=== PATIENT | female | born 1980 | race Caucasian/White ===

== ENCOUNTER 2021-08-31 12:43 | Emergency (ER) | payer OTHER, SELFPAY ==
--- NOTE | ~2021-08-31 | MR_ITS ---
EXAMINATION: MR BRAIN WITHOUT CONTRAST MR LUMBAR SPINE WITHOUT CONTRAST CLINICAL INFORMATION: Low back pain and left leg weakness. COMPARISON: None TECHNIQUE: MRI of the brain and lumbar spine was obtained using routine sequences without contrast. FINDINGS: BRAIN: No diffusion abnormalities are identified to suggest an acute or subacute infarct. The ventricles are normal in size. No mass effect or midline shift is seen. No brain parenchymal signal abnormality is noted. No extra-axial fluid collections are seen. The brainstem and cerebellum are normal. The gradient refocused acquisition demonstrates no pathologic magnetic susceptibility artifact to indicate underlying acute or chronic blood products. The craniovertebral junction, marrow signal, and midline structures are normal. The major intracranial flow voids at the level of the [place] of [place] are preserved. The dural venous sinus flow voids are maintained. The mastoid air cells and paranasal sinuses are well aerated. LUMBAR SPINE: Vertebral Bodies And Paraspinal Structures: The marrow signal is homogeneous. There is a retrosubluxation and disc degeneration without a loss of disc height at the L4-L5 level. The remaining discs are well-hydrated. No compression fractures are seen. The paraspinal soft tissues appear normal. There are [id number] degenerative changes of the partially visualized sacroiliac joints. Conus Medullaris And Cauda Equina: No lower cord signal abnormality is seen. The conus tip terminates normally at the L1-L2 level. The cauda equina nerve roots appear normal. Spinal Levels: L1-L2, L2-L3, and L3-L4: Well-hydrated normal appearance of the discs without central canal stenosis or foraminal narrowing. L4-L5: Disc degeneration and mild posterior subluxation with a diffuse disc bulge and broad-based central disc protrusion. Underlying annular fissure also evident. Disc protrusion impresses upon the ventral thecal sac. Moderate hypertrophic facet arthropathy as well. Findings encroach upon the subarticular zones with mass effect upon both L5 nerve roots. Moderate central canal stenosis and xbwk-ih-dyirdjad bilateral foraminal narrowing. L5-S1: Well-hydrated disc with mild facet arthropathy. No central canal stenosis or foraminal narrowing. MR/MR head/brain wo con IMPRESSION: BRAIN: Normal study. LUMBAR SPINE: Disc degeneration and retrosubluxation at the L4-L5 level with a central disc protrusion, moderate facet arthropathy, and moderate central canal stenosis. Findings result in mass effect upon both L5 nerve roots in the subarticular zones.
--- NOTE | ~2021-08-31 | MR_ITS ---
EXAMINATION: MR BRAIN WITHOUT CONTRAST MR LUMBAR SPINE WITHOUT CONTRAST CLINICAL INFORMATION: Low back pain and left leg weakness. COMPARISON: None TECHNIQUE: MRI of the brain and lumbar spine was obtained using routine sequences without contrast. FINDINGS: BRAIN: No diffusion abnormalities are identified to suggest an acute or subacute infarct. The ventricles are normal in size. No mass effect or midline shift is seen. No brain parenchymal signal abnormality is noted. No extra-axial fluid collections are seen. The brainstem and cerebellum are normal. The gradient refocused acquisition demonstrates no pathologic magnetic susceptibility artifact to indicate underlying acute or chronic blood products. The craniovertebral junction, marrow signal, and midline structures are normal. The major intracranial flow voids at the level of the [place] are preserved. The dural venous sinus flow voids are maintained. The mastoid air cells and paranasal sinuses are well aerated. LUMBAR SPINE: Vertebral Bodies And Paraspinal Structures: The marrow signal is homogeneous. There is a retrosubluxation and disc degeneration without a loss of disc height at the L4-L5 level. The remaining discs are well-hydrated. No compression fractures are seen. The paraspinal soft tissues appear normal. There are [id number]-[id number] degenerative changes of the partially visualized sacroiliac joints. Conus Medullaris And Cauda Equina: No lower cord signal abnormality is seen. The conus tip terminates normally at the L1-L2 level. The cauda equina nerve roots appear normal. Spinal Levels: L1-L2, L2-L3, and L3-L4: Well-hydrated normal appearance of the discs without central canal stenosis or foraminal narrowing. L4-L5: Disc degeneration and mild posterior subluxation with a diffuse disc bulge and broad-based central disc protrusion. Underlying annular fissure also evident. Disc protrusion impresses upon the ventral thecal sac. Moderate hypertrophic facet arthropathy as well. Findings encroach upon the subarticular zones with mass effect upon both L5 nerve roots. Moderate central canal stenosis and [id number] bilateral foraminal narrowing. L5-S1: Well-hydrated disc with mild facet arthropathy. No central canal stenosis or foraminal narrowing. MR/MR lumbar spine wo con IMPRESSION: BRAIN: Normal study. LUMBAR SPINE: Disc degeneration and retrosubluxation at the L4-L5 level with a central disc protrusion, moderate facet arthropathy, and moderate central canal stenosis. Findings result in mass effect upon both L5 nerve roots in the subarticular zones.
[2021-08-31 12:48] VITALS: BP 142/92; PULSE 100; RESP 19; TEMP 36.6; O2SAT 99; BMI 25.8
[2021-08-31 13:18] VITALS: BP 134/87; PULSE 106; RESP 19; TEMP 36.8; O2SAT 99
--- NOTE | 2021-08-31 13:28 | ED.BACK ---
HPI - Back Pain/Injury General Chief Complaint: Back Pain/Injury Stated Complaint: Back pain Time Seen by Provider: 08/31/21 13:12 Source: patient and family ( at bedside) Mode of arrival: ambulatory Limitations: no limitations History of Present Illness HPI Narrative: 41-year-old female with a past medical history of right labial tear of hip joint although no other significant past medical history presenting to the ED with complaints of 2 days of atraumatic lower back pain radiating to her left lower extremity where she reports she has to walk hunched over / holding onto the wall or things around her due to she has pain and is making it difficult for the patient to walk. She reports on she had a right lower quadrant abdominal pain and whoose sensation pain and then the pain in the right lower quadrant of her abdomen completely resolved and has not returned. She reports that she is currently on her menstrual period today. She denies any fevers, chills, dizziness, headaches, neck pain /stiffness, trouble swallowing or breathing, dyspnea on exertion, orthopnea, chest pain or shortness of breath, palpitations, paresthesias, any abdominal pain today, hematuria, dysuria, black or bloody stools, urinary or bowel incontinence or retention, saddle anesthesia, recent travel or sick contacts, rashes, recent falls or injuries, any history of IV drug use or any other symptoms complaints or concerns at this time. MD elicited complaint: back pain Onset (ago): day(s) (2) Timing: constant and progressively worsening Severity: severe Pain scale (0-10): 10 Quality: other ( pain ) Location: lumbar spine Radiation: left leg below the knee Exacerbating factors: supine positioning and walking Relieving factors: none Context: unknown Associated symptoms: weakness ( to the left lower extremity) and difficulty walking ( with the left lower extremity) Treatments prior to arrival: NSAIDS Work related injury: No Related Data Previous Rx's Medication Instructions Recorded acetaminophen 500 mg capsule 500 mg PO Q6H PRN 30 Days #90 cap 05/25/20 diclofenac sodium 75 mg 75 mg PO BID PRN 3 Days #60 tab 05/25/20 tablet,delayed release oxycodone 5 mg tablet 5 mg PO BID PRN 30 Days #60 tab 05/25/20 cyclobenzaprine 10 mg tablet 10 mg PO Q8H PRN #14 tab 03/26/22 ibuprofen 800 mg tablet 800 mg PO Q8H PRN #14 tab 08/31/21 lidocaine 5 % topical patch 1 patch TOPICAL DAILY #15 ea 08/31/21 (Lidoderm) oxycodone 5 mg tablet 5 mg PO Q6H PRN #14 tab 08/31/21 prednisone 20 mg tablet 40 mg PO DAILY 5 Days #10 tab 08/31/21 Allergies Allergy/AdvReac Type Severity Reaction Status Date / Time No Known Allergies Allergy Verified 06/05/20 11:44 Review of Systems Review of Systems: Constitutional : No trauma, No Weight loss, No Fever, No Chills, ENT/Mouth : No Hearing loss, No Ear Pain, No Nasal Congestion, No Sinus Pain, No Hoarseness, No sore throat, No Rhinorrhea, No Swallowing Difficulty Cardiovascular : No Chest Pain, No SOB Respiratory : No Cough, No Dyspnea Gastrointestinal : No Nausea, No Vomiting, No Diarrhea, No abdominal Pain, No Hematochezia, No Melena Genitourinary : No Dysuria, No Urinary Frequency, No Hematuria, No Urinary or Bowel Incontinence/retention Musculoskeletal : + Back pain, No neck pain, No joint stiffness, No joint swelling Skin : No Skin Lesions, No rash or signs of infection Neuro : + pain radiating to left lower extremity weakness/ pain, No Numbness, No Paresthesias, No headache, no loss of bowel or bladder incontinence, no saddle anesthesia, Focal weakness, No radiation Denies history of IV drug usage. Yes all other systems are reviewed and are negative [facility] Past Medical History Attestation statement: The following information was validated with the patient. Medical History Labral tear of hip joint Pain management Surgical History History of arthroscopy History of section Family History Family History Father Cancer of prostate Mother No problems noted. Brother No problems noted. Son No problems noted. Son No problems noted. Son No problems noted. Social History Social History Alcohol intake: current Alcohol intake frequency: holidays/special occasions only Patient Tobacco Use Status: Never used Tobacco Use of substances other than those prescribed or required for medical reasons: No Advance Directives: No Advance Directives Information Provided: No Patient : No Physical Exam Vital Signs: Vital Signs: Last Vital Signs Temp 98.2 F 08/31/21 13:18 Pulse 106 H 08/31/21 13:18 Resp 19 08/31/21 13:18 BP 134/87 08/31/21 13:18 Pulse Ox 99 08/31/21 13:18 BMI result Body Mass Index 25.8 vital signs have been reviewed as normal and appeared to be correct. Blood pressure normal. Heart rate normal. Respiration rate normal. Temperature normal. Oxygen saturation normal. Appearance: Alert. Oriented X3. No acute distress. Head: Normal external exam. Normocephalic. Atraumatic. Eyes: PERRLA. EOMI. Conjunctiva and sclera normal. Eyelids normal. ENT: Pharynx normal. Uvula midline. Moist mucous membranes. No trismus noted. No drooling noted. No muffled voice noted. Neck: Normal inspection. Neck supple. FROM. No adenopathy. Thyroid Normal. No meningeal signs. No neck mass noted. CVS: Normal heart rate and rhythm. Heart sound normal. No murmurs noted. Pulses normal throughout. Respiratory: No respiratory distress. Painless inspiration. Breath sounds normal. No wheezes/rales/rhonchi noted. Chest nontender. No accessory muscle usage noted or decreased air movement noted. Abdomen: Soft and nontender. Bowel sounds normal in all 4 quadrants. No distention noted. No organomegaly noted. No visible injury noted. Back: No CVA tenderness. Full range of motion noted. No obvious deformities, or edema. Mild para-spinal muscular tenderness from lumbar region to coccyx. Full ROM in back and lower extremities. 5/5 strength hip extension/flexion, abduction, adduction. Mild Lumbar pain with hip flexion against resistance. Straight leg raise test negative on right; Straight leg raise test negative on left; Reflexes normal ankle and knee bilaterally; EHL motor strength normal bilaterally. No rashes/lesion/induration/fluctuance or signs infection noted. Skin: Skin warm and dry. Normal skin color. Normal skin turgor. No rashes/lesions/lacerations noted. Extremities: No lower extremity edema. No calf tenderness is noted. Extremities exhibit normal range of motion. Extremities nontender. Neuro: Oriented X 3. No sensory deficit. Reflexes normal. Patient is hunched over when she is walking in severe pain although she eventually can stand up straight although is crying when she does this. Mild left lower extremity weakness 4/5 with motor compared to the right side which is 5/5 for motor. Vascular: + radial pulses bilaterally. + Distal pedal pulses bilaterally. No cyanosis noted to upper lower extremities. normal capillary refill noted to upper and lower extremity nails. Course Course Course Narrative: 13:30pm - Pt c likely muscular pain, but could be herniated disc. Not c/w AAA/epidural abscess/dissection.No high risk Hx (Incont, fever, immunosupp, recent surgery/LP, coag, signif trauma, wt loss, puls mass, hx/o Ca, TB, or IVDU). Not c/w Pyelo/UTI/kidney stone/spinal fx. Not cauda equina syndrome. Patient does have some weakness to the left lower extremity 4/5 for motor compared to the right which is 5/5 for motor. No sensory defect. She is hunched over when she is walking in pain although she is able to stand up straight although crying when she does this reporting pain. Therefore at this time will obtain an MRI of brain to evaluate for possible multiple sclerosis or any other acute processes and an MRI of lumbar spine without contrast to evaluate for any other acute processes. Provide symptomatic treatment with 30 mg of IM Toradol and 10 mg of Valium then re-evaluate. Reevaluation(s) Reevaluation #1: - Labs reviewed patient with RBCs at 4.12. Otherwise all other labs are within normal limits. Patient negative for . MRI of brain within normal limits. MRI of lumbar spine negative for cauda equina although revealed chronic changes such as herniated this and degenerative disc disease. Therefore I printed out the results and given to the patient explained to her that this is most likely acute on chronic back pain she reports that she has never had back pain in the past like this. Therefore explained her that she should follow-up with her PCP and a legal specialist and to return if any new or worsening symptoms. Patient understands agrees with this plan. Time: 17:04 [facility] - Back Pain/Injury Medical Records Attestation: I reviewed the patient's medical records. Lab Data Attestation: I reviewed the patient's lab results. Result diagrams: 08/31/21 13:55 08/31/21 13:55 Labs: Lab Results 08/31/21 08/31/21 08/31/21 Range/Units 13:55 13:55 13:55 WBC 8.7 (4.8-10.8) X10*3/uL RBC 4.12 L (4.20-5.50) X10*6/uL Hgb 12.1 (12.0-16.0) g/dl Hct 37.9 (37.0-47.0) % MCV 92.0 (80.0-98.0) fL MCH 29.4 (27.0-33.0) pg MCHC 31.9 (31.0-35.0) g/dl RDW 13.0 (11.0-16.0) % Plt Count 241 (160-400) X10*3/uL MPV 11.2 (9.4-12.3) fL Immature Gran % (Auto) 0.3 (0.0-0.4) % Neut % (Auto) 73.5 H (45-73) % Lymph % (Auto) 16.9 L (20-40) % [place] % (Auto) 6.3 (2-11) % Eos % (Auto) 2.3 (0-4) % Baso % (Auto) 0.7 (0-2) % Lymph # (Auto) 1.5 (1.2-4.9) X10*3/uL [place]ier # (Auto) 0.6 (0.1-1.2) X10*3/uL Eos # (Auto) 0.2 (0.0-0.4) X10*3/uL Baso # (Auto) 0.1 (0.0-0.2) X10*3/uL Abs Immat Gran (auto) 0.03 (0.00-0.03) X10*3/uL Absolute Neuts (auto) 6.4 (2.0-8.3) x10*3/uL Absolute Nucleated RBC 0.000 (0.0-0.012) X10*3/uL Nucleated RBC % (auto) 0.0 (0.0-0.2) /100WBC PT 12.0 (9.9-13.0) SEC INR 1.1 (0.9-1.1) Sodium 141 (135-145) mmol/L Potassium 4.6 (3.3-5.1) mmol/L Chloride 106 (96-108) mmol/L Carbon Dioxide 26 (22-29) mmol/L Anion Gap 14 (12-20) BUN 14 (9-16) mg/dL Creatinine 0.79 (0.5-1.4) mg/dL Estim Creat Clear Calc 100.0 Estimated GFR > 60 Random Glucose 107 (60-115) mg/dL Calcium 9.4 (8.4-10.2) mg/dL Magnesium 2.0 (1.6-2.6) mg/dL Total Bilirubin 0.5 (0.0-1.0) mg/dL AST 14 (5-31) U/L ALT 11 (0-31) U/L Alkaline Phosphatase 47 (39-117) U/L Total Protein 6.9 (6.5-8.0) g/dL Albumin 4.2 (3.5-5.0) g/dL Beta HCG, Quant < 2 mIU/mL Imaging Data MRI of brain/lumbar spine without contrast: Attestation: I personally reviewed and interpreted this imaging study as follows: Radiologist's impression: FINDINGS: BRAIN: No diffusion abnormalities are identified to suggest an acute or subacute infarct. The ventricles are normal in size. No mass effect or midline shift is seen. No brain parenchymal signal abnormality is noted. No extra-axial fluid collections are seen. The brainstem and cerebellum are normal. The gradient refocused acquisition demonstrates no pathologic magnetic susceptibility artifact to indicate underlying acute or chronic blood products. The craniovertebral junction, marrow signal, and midline structures are normal. The major intracranial flow voids at the level of the [place] of [place] are preserved. The dural venous sinus flow voids are maintained. The mastoid air cells and paranasal sinuses are well aerated. LUMBAR SPINE: Vertebral Bodies And Paraspinal Structures: The marrow signal is homogeneous. There is a retrosubluxation and disc degeneration without a loss of disc height at the L4-L5 level. The remaining discs are well-hydrated. No compression fractures are seen. The paraspinal soft tissues appear normal. There are [id number] degenerative changes of the partially visualized sacroiliac joints. Conus Medullaris And Cauda Equina: No lower cord signal abnormality is seen. The conus tip terminates normally at the L1-L2 level. The cauda equina nerve roots appear normal. Spinal Levels: L1-L2, L2-L3, and L3-L4: Well-hydrated normal appearance of the discs without central canal stenosis or foraminal narrowing. L4-L5: Disc degeneration and mild posterior subluxation with a diffuse disc bulge and broad-based central disc protrusion. Underlying annular fissure also evident. Disc protrusion impresses upon the ventral thecal sac. Moderate hypertrophic facet arthropathy as well. Findings encroach upon the subarticular zones with mass effect upon both L5 nerve roots. Moderate central canal stenosis and [id number] bilateral foraminal narrowing. L5-S1: Well-hydrated disc with mild facet arthropathy. No central canal stenosis or foraminal narrowing. MR/MR head/brain wo con IMPRESSION: ? BRAIN: Normal study. ? LUMBAR SPINE: Disc degeneration and retrosubluxation at the L4-L5 level with a central disc protrusion, moderate facet arthropathy, and moderate central canal stenosis. Findings result in mass effect upon both L5 nerve roots in the subarticular zones. Critical Care Time Critical Care Time Critical Care Time: Yes Total Critical Care Time: 60 Attestation: I personally attest to this time spent taking care of the patient Discharge Plan Discharge Clinical Impression: Degenerative disc disease, lumbar, Protrusion of lumbar intervertebral disc, Arthropathy of facet joint, Central stenosis of spinal canal Patient Disposition: Home, Self-Care Instructions: Osteoarthritis (DC), Degenerative Disc Disease (ED) Additional Instructions: [facility]?at [phone] [place] [phone] call to make a follow-up appointment this is not a referral Prescriptions: New cyclobenzaprine 10 mg tablet 10 mg PO Q8H PRN (Reason: Muscle spasm) Qty: 14 0RF ibuprofen 800 mg tablet 800 mg PO Q8H PRN (Reason: pain) Qty: 14 0RF prednisone 20 mg tablet 40 mg PO DAILY 5 Days Qty: 10 0RF lidocaine [Lidoderm] 5 % adhesive patch,medicated 1 patch topical DAILY Qty: 15 0RF Rx Instructions: leave on most painful area for up to 12 hrs. May be substituted oxycodone 5 mg tablet 5 mg PO Q6H PRN (Reason: pain) Qty: 14 0RF No Action oxycodone 5 mg tablet 5 mg PO BID PRN (Reason: pain) 30 Days Qty: 60 0RF diclofenac sodium 75 mg tablet,delayed release (DR/EC) 75 mg PO BID PRN (Reason: pain) 3 Days Qty: 60 0RF acetaminophen 500 mg capsule 500 mg PO Q6H PRN (Reason: fever) 30 Days Qty: 90 0RF Referrals: Corinna Oquendo MD [Primary Care Provider] - 2 days Print Language: Pashto
[2021-08-31] MEDS: Ketorolac Tromethamine 30 MG/ML VIAL IM (13:57)
[2021-08-31 13:58] LABS: MANUAL DIFF FLAG NO
[2021-08-31] MEDS: diazePAM 5 MG TABLET 10 MG PO (13:58)
[2021-08-31 14:03] LABS: Basophils Absolute Auto 0.1 X10*3/uL (0.0-0.2); Basophils Percent Auto 0.7 % (0-2); Eosinophils Absolute Auto 0.2 X10*3/uL (0.0-0.4); Eosinophils Percent Auto 2.3 % (0-4); Hematocrit 37.9 % (37.0-47.0); Hemoglobin 12.1 g/dl (12.0-16.0); Imm Gran Abs Auto 0.03 X10*3/uL (0.00-0.03); Imm Gran Pct Auto 0.3 % (0.0-0.4); Lymphocytes Absolute Auto 1.5 X10*3/uL (1.2-4.9); Lymphocytes Percent Auto 16.9 % (20-40); Mean Corpuscular HGB Conc 31.9 g/dl (31.0-35.0); Mean Corpuscular Hemoglobin 29.4 pg (27.0-33.0); Mean Platelet Volume 11.2 fL (9.4-12.3); Monocytes Absolute Auto 0.6 X10*3/uL (0.1-1.2); Monocytes Percent Auto 6.3 % (2-11); Neutrophils Absolute Auto 6.4 x10*3/uL (2.0-8.3); Neutrophils Percent Auto 73.5 % (45-73); Platelet Count 241 X10*3/uL (160-400); Red Blood Count 4.12 X10*6/uL (4.20-5.50); White Blood Count 8.7 X10*3/uL (4.8-10.8)
[2021-08-31 14:13] LABS: INTERNATIONAL NORM RATIO 1.1 (0.9-1.1)
[2021-08-31 14:19] LABS: Alanine Aminotransferase 11 U/L (0-31); Albumin Level 4.2 g/dL (3.5-5.0); Alkaline Phosphatase 47 U/L (39-117); Anion Gap 14 (12-20); Aspartate Amino Transferase 14 U/L (5-31); Bilirubin Total 0.5 mg/dL (0.0-1.0); Blood Urea Nitrogen 14 mg/dL (9-16); Calcium 9.4 mg/dL (8.4-10.2); Carbon Dioxide 26 mmol/L (22-29); Chloride 106 mmol/L (96-108); Estimated Glomerular Filt Rate > 60; Glucose Random 107 mg/dL (60-115); Potassium 4.6 mmol/L (3.3-5.1); Sodium 141 mmol/L (135-145); Total Protein 6.9 g/dL (6.5-8.0)
[2021-08-31 16:07] LABS: HCG Quantitative < 2 mIU/mL
[2021-08-31 17:40] VITALS: BP 105/63; PULSE 76; RESP 16; O2SAT 99
[2021-08-31] MEDS: oxyCODONE HCl Immed Release 5 MG TABLET PO (17:41)
== END 2021-08-31 17:46 | disposition home or self-care (01) ==
PROVIDERS: Physician Assistant Medical; Emergency Provider Emergency Medicine; PCP Internal Medicine
DX: M51.36 Other intervertebral disc degeneration, lumbar region (principal); M51.26 Other intervertebral disc displacement, lumbar region; M48.061 Spinal stenosis, lumbar region without neurogenic claudication; M47.896 Other spondylosis, lumbar region; M54.42 Lumbago with sciatica, left side; R53.1 Weakness
CPT/HCPCS: 36415; 70551; 72148; 80053; 83735; 84702; 85025; 85610; 96372; 96374; 99284; 99291; J1885

== ENCOUNTER 2021-12-19 12:00 | Outpatient (REF) | payer OTHER, SELFPAY | END 2021-12-19 12:01 | disposition home or self-care (01) | LOC: HO.HMGCLDS 12:00 | PROVIDERS: PCP Internal Medicine; Visit Provider Internal Medicine | DX: Z01.84 Encounter for antibody response examination (principal); Z28.39 Other underimmunization status | CPT/HCPCS: 36415; 86735; 86762; 86765; 86787 ==

== ENCOUNTER 2022-01-29 11:01 | Outpatient (REF) | payer OTHER, SELFPAY ==
[2022-01-29 14:37] LABS: Alanine Aminotransferase 9 U/L (0-31); Albumin Level 4.4 g/dL (3.5-5.0); Alkaline Phosphatase 51 U/L (39-117); Anion Gap 13 (12-20); Aspartate Amino Transferase 14 U/L (5-31); Bilirubin Total 0.4 mg/dL (0.0-1.0); Blood Urea Nitrogen 10 mg/dL (9-16); Calcium 9.4 mg/dL (8.4-10.2); Carbon Dioxide 28 mmol/L (22-29); Chloride 104 mmol/L (96-108); Cholesterol 179 mg/dL; Estimated Glomerular Filt Rate > 60; Glucose Fasting 90 mg/dL (60-99); HDL Cholesterol 69 mg/dL; LDL Cholesterol Calculated 102 mg/dl; Potassium 3.9 mmol/L (3.3-5.1); Sodium 141 mmol/L (135-145); Total Protein 7.2 g/dL (6.5-8.0); Triglycerides 42 mg/dL
[2022-01-29 14:47] LABS: TSH reflex Free T4 2.29 uIU/mL (0.32-4.0)
== END 2022-01-29 11:02 | disposition home or self-care (01) ==
LOC: HO.HMGCLDS 11:01
PROVIDERS: PCP Internal Medicine; Visit Provider Internal Medicine
DX: Z00.01 Encounter for general adult medical examination with abnormal findings (principal); S73.199A Other sprain of unspecified hip, initial encounter; M54.16 Radiculopathy, lumbar region; X58.XXXA Exposure to other specified factors, initial encounter; Y93.9 Activity, unspecified; Y92.9 Unspecified place or not applicable; Y99.9 Unspecified external cause status
CPT/HCPCS: 36415; 80053; 80061; 84443

== ENCOUNTER 2022-12-17 14:04 | Outpatient (AMB) | payer OTHER, SELFPAY ==
--- NOTE | 2022-12-17 14:05 | A.OFFPC_ITS ---
Vital Signs 12/17/22 14:06 Height 5 ft 7 in Weight 167 lb 4 oz BMI 26.2 BP 122/76 Blood Pressure Location Rt brachial Position Sitting Pulse 90 Pulse Source Pulse Oximeter Pulse Oximetry (%) 99 Intake Visit Reasons: 3m follow up hip joint Allergies No Known Allergies Allergy (Verified 12/17/22 14:06) Medication List - Last Reconciled 12/17/22 by Corinna Oquendo MD omeprazole 20 mg PO DAILY tizanidine 2 mg PO ONCE 90 days tramadol 50 mg PO Q8H PRN 30 days Tobacco use date assessed: 12/17/22 Dental Screening Dental Screen Date: 12/17/22 Did you have a dental visit in the last 12 months?: Yes Was dental information given to patient?: No HPI 3m follow up hip joint HPI Details Patient had right hip replacement she is very happy there is no more pain However her back pain is started to act up, patient was seeing [facility] for that, I would recommend for her to book another appointment for follow-up She is also having pain in her right knee was swollen before but today it is feeling better I have ordered x-ray of her knee patient is to continue observing if it gets better she does not need to do the x-ray otherwise she will have the x-ray and give me a call so I can book appointment with Orthopedic I have sent tramadol 50 mg up to 3 times a day as she continued to have the back pain initially medication was prescribed for her hip And she is also taking tizanidine at night which is helping her back. Follow-up 3 months [facility] Medical History Labral tear of hip joint Pain management Surgical History History of arthroscopy History of section History of right hip replacement Family History Father Cancer of prostate Mother No problems noted. Brother No problems noted. Son No problems noted. Son No problems noted. Son No problems noted. 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 Tobias Moyer, Millie Hernandez, Quinn Gonzalez and colleagues, with an educational radha from [employer]. Review of Systems Const Denies chills and Denies fever(s) ENT Denies epistaxis and Denies nasal discharge Card Denies chest pain Resp Denies chest congestion, Denies cough and Denies hemoptysis GI Denies diarrhea and Denies nausea Skin/Breast Denies rash Neuro Reports no additional complaints Psych Reports no additional complaints Endo Reports no additional complaints Physical exam (Primary Care) Vital Signs: Last Vital Signs Pulse 90 12/17/22 14:06 BP 122/76 12/17/22 14:06 Pulse Ox 99 12/17/22 14:06 BMI result Body Mass Index 26.2 Tobacco/Smoking Status: Tobacco use Status Tobacco use date assessed 12/17/22 12/17/22 14:10 Patient Tobacco Use Status Never used Tobacco 12/17/22 14:10 e-Cigarette/Vaping Use Never Used 12/17/22 14:10 Thrive Assessment: Date of Thrive Assessment Date Thrive assessed 09/03/21 12/17/22 14:10 Const General: cooperative, comfortable and no acute distress Orientation/consciousness: patient oriented x3 HENMT Head: Yes normocephalic Eyes General: appearance normal, both eyes and all related structures Neck Neck: Yes supple Resp Effort & Inspection: normal respiratory effort, no cough and no stridor Cardio Rhythm: regular rhythm Heart sounds: S1 normal heart sound present and S2 normal heart sound present Skin General skin exam: turgor normal Neuro General: patient oriented x3, tone normal and moves all extremities Extrem Right lower extremity: no edema Left lower extremity: no edema Assessment and Plan Assessment & Plan (1) HNP (herniated nucleus pulposus), lumbar: Code(s): M51.26 - Other intervertebral disc displacement, lumbar region (2) Left lumbar radiculitis: Code(s): M54.16 - Radiculopathy, lumbar region (3) Right knee pain: Code(s): M25.561 - Pain in right knee (4) History of right hip replacement: Comment: 09/30/2022 Code(s): Z96.641 - Presence of right artificial hip joint Plan Patient had right hip replacement she is very happy there is no more pain However her back pain is started to act up, patient was seeing [facility] for that, I would recommend for her to book another appointment for follow-up She is also having pain in her right knee was swollen before but today it is feeling better I have ordered x-ray of her knee patient is to continue observing if it gets better she does not need to do the x-ray otherwise she will have the x-ray and give me a call so I can book appointment with Orthopedic I have sent tramadol 50 mg up to 3 times a day as she continued to have the back pain initially medication was prescribed for her hip And she is also taking tizanidine at night which is helping her back. Follow-up 3 months Medications: Refilled tizanidine 2 mg PO ONCE 90 caps 0RF muscle spasticity 90 days tramadol 50 mg PO Q8H PRN 90 tabs 2RF pain 30 days omeprazole 20 mg PO DAILY 90 caps 0RF Coding Level of Care Code Est Pt Level 3 (57854) Diagnoses HNP (herniated nucleus pulposus), lumbar M51.26 Left lumbar radiculitis M54.16 Right knee pain M25.561 History of right hip replacement Z96.641
[2022-12-17 14:06] VITALS: BP 122/76; PULSE 90; O2SAT 99; BMI 26.2
== END 2022-12-17 15:14 | disposition home or self-care (01) ==
PROVIDERS: PCP Internal Medicine; Visit Provider Internal Medicine
DX: M51.26 Other intervertebral disc displacement, lumbar region (principal); M54.16 Radiculopathy, lumbar region; M25.561 Pain in right knee; Z96.641 Presence of right artificial hip joint
CPT/HCPCS: 99213

== ENCOUNTER 2023-04-14 13:42 | Outpatient (AMB) | payer OTHER, SELFPAY ==
[2023-04-14 13:44] VITALS: BP 126/70; PULSE 100; O2SAT 100; BMI 25.3
--- NOTE | 2023-04-14 13:44 | MHC.PC.OV ---
Vital Signs 04/14/23 13:44 Height 5 ft 7 in Weight 161 lb 8 oz BMI 25.3 BP 126/70 Blood Pressure Location Rt brachial Position Sitting Pulse 100 Pulse Source Pulse Oximeter Pulse Oximetry (%) 100 Oxygen Delivery Method Room Air Intake Visit Reasons: 3m follow up Allergies No Known Allergies Allergy (Verified 04/14/23 13:44) Medication List - Last Reconciled 04/14/23 by Corinna Oquendo MD omeprazole 20 mg PO DAILY tizanidine 2 mg PO ONCE 90 days tramadol 50 mg PO Q6H 30 days Tobacco use date assessed: 04/14/23 Dental Screening Dental Screen Date: 04/14/23 Did you have a dental visit in the last 12 months?: No Did you have a dental problem in the last 6 months where you did not have access to dental care?: No Was dental information given to patient?: No HPI 3m follow up HPI Details Patient had right hip replacement surgery done she was doing well for a while until Her right hip start dislocating for the past few weeks She has appointment coming up with Orthopedic for evaluation. Her low back continued to be extremely painful causing difficulty for the patient to go on with her day She had an MRI of lumbar spine done in August of 2021 which showed Disc degeneration and retrosubluxation at the L4-L5 level with a central disc protrusion, moderate facet arthropathy, and moderate central canal stenosis. Findings result in mass effect upon both L5 nerve roots in the subarticular zones. She is already on tramadol 3 times a day I have increased it to 4 times a day She may take Aleve as needed in between She is taking muscle relaxer at night which does She will return in 3 months for physical exam Also need labs done [facility] Medical History Pain management Labral tear of hip joint Surgical History History of right hip replacement History of arthroscopy History of section Family History Father Cancer of prostate Mother No problems noted. Brother No problems noted. Son No problems noted. Son No problems noted. Son No problems noted. 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 1. Little interest or pleasure in doing things: not at all 2. Feeling down, depressed, or hopeless: several days 3. Trouble falling or staying asleep, or sleeping too much: several days 4. Feeling tired or having little energy: several days 5. Poor appetite or overeating: not at all 6. Feeling bad about yourself - or that you are a failure or have let yourself or your family down: not at all 7. Trouble concentrating on things, such as reading the newspaper or watching television: not at all 8. Moving or speaking so slowly that other people could have noticed. Or the opposite - being so fidgety or restless that you have been moving around a lot more than usual: not at all 9. Thoughts that you would be better off or of hurting yourself in some way: not at all Total score: 3 Depression Screening Interpretation: Negative Depression Screening Done: Yes 98204 - PHQ-9 Billing: Yes Source: Developed by Drs. Tobias Moyer, Millie Hernandez, Quinn Gonzalez and colleagues, with an educational radha from [employer]. Thrive Questionnaire Date Thrive assessed: 09/03/21 AUDIT C Alcohol Use Questionnaire (AUDIT-C) 1. How often do you have a drink containing alcohol?: Never 3. How often do you have six or more drinks on one occasion?: Never Total Score: 0 Score Reviewed/Action Taken: Yes ARMANI-7 AMB Questionnaire ARMANI-7 Date ARMANI - 7 assessed: 04/14/23 Feeling nervous, anxious, or on edge: 0 = Not at all Not being able to stop or control worryin = Not at all Worrying too much about different things: 1 = Several days Trouble relaxin = Several days Being so restless that it is hard to sit still: 0 = Not at all Becoming easily annoyed or irritable: 0 = Not at all Feeling afraid as if something awful might happen: 0 = Not at all Total ARMANI-7 score (0-4 normal; 5-9 mild; 10-14 moderate; 15-21 severe): 2 Source: Developed by Drs. Tobisa Moyer, Millie Hernandez, Quinn Gonzalez and colleagues, with an educational radha from [employer]. ARMANI-7 Assessment Billing ARMANI-7 Assessment Tool: ARMANI-7 Assessment 62126 Review of Systems Const Denies chills and Denies fever(s) ENT Denies epistaxis and Denies nasal discharge Card Denies chest pain Resp Denies chest congestion, Denies cough and Denies hemoptysis GI Denies diarrhea and Denies nausea Skin/Breast Denies rash Neuro Reports no additional complaints Psych Reports no additional complaints Endo Reports no additional complaints Physical exam (Primary Care) Vital Signs: Last Vital Signs Pulse 100 04/14/23 13:44 BP 126/70 04/14/23 13:44 Pulse Ox 100 04/14/23 13:44 Oxygen Delivery Method Room Air 04/14/23 13:44 BMI result Body Mass Index 25.3 Tobacco/Smoking Status: Tobacco use Status Tobacco use date assessed 04/14/23 04/14/23 13:49 Patient Tobacco Use Status Never used Tobacco 04/14/23 13:46 e-Cigarette/Vaping Use Never Used 04/14/23 13:46 PHQ-9: PHQ-9 Score PHQ-9: Total score 3 04/14/23 14:14 Depression Screening Interpretation: Negative Thrive Assessment: Date of Thrive Assessment Date Thrive assessed 09/03/21 04/14/23 13:46 Const General: cooperative, comfortable and no acute distress Orientation/consciousness: patient oriented x3 HENME Head: Yes normocephalic Eyes General: appearance normal, both eyes and all related structures Neck Neck: Yes supple Resp Effort & Inspection: normal respiratory effort, no cough and no stridor Cardio Rhythm: regular rhythm Heart sounds: S1 normal heart sound present and S2 normal heart sound present Skin General skin exam: turgor normal Neuro General: patient oriented x3, tone normal and moves all extremities Extrem Right lower extremity: no edema Left lower extremity: no edema Assessment and Plan Assessment & Plan (1) Left lumbar radiculitis: Code(s): M54.16 - Radiculopathy, lumbar region (2) Pain management: Code(s): R52 - Pain, unspecified (3) Hip pain, right: Code(s): M25.551 - Pain in right hip (4) Hip dislocation, right: Code(s): S73.004A - Unspecified dislocation of right hip, initial encounter Qualifiers: Encounter type: initial encounter Qualified Code(s): S73.004A - Unspecified dislocation of right hip, initial encounter Plan Patient had right hip replacement surgery done she was doing well for a while until Her right hip start dislocating for the past few weeks She has appointment coming up with Orthopedic for evaluation. Her low back continued to be extremely painful causing difficulty for the patient to go on with her day She had an MRI of lumbar spine done in August of 2021 which showed Disc degeneration and retrosubluxation at the L4-L5 level with a central disc protrusion, moderate facet arthropathy, and moderate central canal stenosis. Findings result in mass effect upon both L5 nerve roots in the subarticular zones. She is already on tramadol 3 times a day I have increased it to 4 times a day She may take Aleve as needed in between She is taking muscle relaxer at night which does She will return in 3 months for physical exam Also need labs done Orders: Orders Lipid Panel Today M25.551 - Pain in right hip, M54.16 - Radiculopathy, lumbar region, R52 - Pain, unspecified, S73.004A - Unspecified dislocation of right hip, initial encounter Vitamin D 25-OH (D2 and D3) Today M25.551 - Pain in right hip, M54.16 - Radiculopathy, lumbar region, R52 - Pain, unspecified, S73.004A - Unspecified dislocation of right hip, initial encounter Complete Blood Count Auto Diff Today M25.551 - Pain in right hip, M54.16 - Radiculopathy, lumbar region, R52 - Pain, unspecified, S73.004A - Unspecified dislocation of right hip, initial encounter Comprehensive [place]. Panel Fast Today M25.551 - Pain in right hip, M54.16 - Radiculopathy, lumbar region, R52 - Pain, unspecified, S73.004A - Unspecified dislocation of right hip, initial encounter TSH reflex Free T4 Today M25.551 - Pain in right hip, M54.16 - Radiculopathy, lumbar region, R52 - Pain, unspecified, S73.004A - Unspecified dislocation of right hip, initial encounter Medications: Changed From tramadol 50 mg PO Q8H 30 days PRN 90 tabs 2RF pain To tramadol 50 mg PO Q6H 120 tabs 2RF pain 30 days Refilled tizanidine 2 mg PO ONCE 90 caps 0RF muscle spasticity 90 days Coding Level of Care Code Est Pt Level 4 (72008) Diagnoses Left lumbar radiculitis M54.16 Pain management R52 Hip pain, right M25.551 Dislocation of right hip, initial encounter S73.004A Encounter type: initial encounter Additional Codes ARMANI-7 Assessment Billing - ARMANI-7 Assessment Tool: ARMANI-7 Assessment 57393 ([id number])
== END 2023-04-14 16:03 | disposition home or self-care (01) ==
PROVIDERS: PCP Internal Medicine; Visit Provider Internal Medicine
DX: M54.16 Radiculopathy, lumbar region (principal); M25.551 Pain in right hip; S73.004A Unspecified dislocation of right hip, initial encounter
CPT/HCPCS: 99214

== ENCOUNTER 2023-09-04 07:29 | Outpatient (AMB) | payer OTHER, SELFPAY ==
--- NOTE | 2023-09-04 07:48 | MHC.PC.OV ---
Intake Visit Reasons: 3 Month follow up/[phone] Allergies No Known Allergies Allergy (Verified 04/14/23 13:44) Medication List - Last Reconciled 09/04/23 by Corinna Oquendo MD omeprazole 20 mg PO DAILY tizanidine 2 mg PO ONCE 90 days tramadol 50 mg PO Q6H 30 days Tobacco use date assessed: 04/14/23 Dental Screening Dental Screen Date: 04/14/23 HPI 3 Month follow up/[phone] HPI Details This is a telephone video conference to have medication refill and to update information Patient suffers from chronic back pain, she says that in May while on came she bent down to olive picker something and worsened her back pain Patient sees [facility] for back however she owes them some money and has not been able to book appointment Patient says that she feels as if she has another disc herniation. She will work on her appointment Meanwhile I have sent tramadol 50 mg prescription patient is taking sometimes 3 times a day sometimes 2 times Along with muscle relaxer Patient had right hip replacement surgery done she was doing well for a while until Her right hip start dislocating after the surgery, however she is now doing well and there is no more dislocation She has appointment coming up with Orthopedic for evaluation. MRI of lumbar spine done in August of 2021 which showed Disc degeneration and retrosubluxation at the L4-L5 level with a central disc protrusion, moderate facet arthropathy, and moderate central canal stenosis. Findings result in mass effect upon both L5 nerve roots in the subarticular zones. We have booked physical exam for November as patient is going to college and can not come before that. [facility] Medical History Pain management Labral tear of hip joint Surgical History History of right hip replacement History of arthroscopy History of section Family History Father Cancer of prostate Mother No problems noted. Brother No problems noted. Son No problems noted. Son No problems noted. Son No problems noted. 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 Tobias Moyer, Millie Hernandez, Quinn Gonzalez and colleagues, with an educational radha from [employer]. Review of Systems Const Denies chills and Denies fever(s) ENT Denies epistaxis and Denies nasal discharge Card Denies chest pain Resp Denies chest congestion, Denies cough and Denies hemoptysis GI Denies diarrhea and Denies nausea Skin/Breast Denies rash Neuro Reports no additional complaints Psych Reports no additional complaints Endo Reports no additional complaints Physical exam (Primary Care) Tobacco/Smoking Status: Tobacco use Status Tobacco use date assessed 04/14/23 09/04/23 07:49 Patient Tobacco Use Status Never used Tobacco 09/04/23 07:49 e-Cigarette/Vaping Use Never Used 09/04/23 07:49 Thrive Assessment: Date of Thrive Assessment Date Thrive assessed 09/03/21 09/04/23 07:49 Telehealth Telehealth Location of provider rendering services: practice address Location of patient: address on file Patient Identification confirmed using: Name, : Yes Telehealth method: video Patient verbally consented to treatment: Yes Patient verbally consented to billing insurance company: Yes Patient informed of any privacy concerns related to visit: Yes Assessment and Plan Assessment & Plan (1) HNP (herniated nucleus pulposus), lumbar: Code(s): M51.26 - Other intervertebral disc displacement, lumbar region (2) Pain management: Code(s): R52 - Pain, unspecified (3) History of right hip replacement: Comment: 09/30/2022 Code(s): Z96.641 - Presence of right artificial hip joint Plan This is a telephone video conference to have medication refill and to update information Patient suffers from chronic back pain, she says that in May while on came she bent down to olive picker something and worsened her back pain Patient sees [facility] for back however she owes them some money and has not been able to book appointment Patient says that she feels as if she has another disc herniation. She will work on her appointment Meanwhile I have sent tramadol 50 mg prescription patient is taking sometimes 3 times a day sometimes 2 times Along with muscle relaxer Patient had right hip replacement surgery done she was doing well for a while until Her right hip start dislocating after the surgery, however she is now doing well and there is no more dislocation She has appointment coming up with Orthopedic for evaluation. MRI of lumbar spine done in August of 2021 which showed Disc degeneration and retrosubluxation at the L4-L5 level with a central disc protrusion, moderate facet arthropathy, and moderate central canal stenosis. Findings result in mass effect upon both L5 nerve roots in the subarticular zones. We have booked physical exam for November as patient is going to college and can not come before that. Medications: Refilled tramadol 50 mg PO Q6H 120 tabs 2RF pain 30 days tizanidine 2 mg PO ONCE 90 caps 0RF muscle spasticity 90 days Coding Level of Care Code Tele Est Pt Level 3 (02380) Diagnoses HNP (herniated nucleus pulposus), lumbar M51.26 Pain management R52 History of right hip replacement Z96.641 Time Spent (min) 17
== END 2023-09-04 08:21 | disposition home or self-care (01) ==
LOC: HO.HMGC 07:30
PROVIDERS: PCP Internal Medicine; Visit Provider Internal Medicine
DX: M51.26 Other intervertebral disc displacement, lumbar region (principal); R52 Pain, unspecified; Z96.641 Presence of right artificial hip joint
CPT/HCPCS: 99213

== ENCOUNTER 2023-09-09 09:38 | Outpatient (REF) | payer OTHER, SELFPAY ==
[2023-09-09 13:29] LABS: MANUAL DIFF FLAG NO
[2023-09-09 13:40] LABS: Basophils Absolute Auto 0.1 X10*3/uL (0.0-0.2); Basophils Percent Auto 1.3 % (0-2); Eosinophils Absolute Auto 0.2 X10*3/uL (0.0-0.4); Eosinophils Percent Auto 3.9 % (0-4); Hematocrit 36.7 % (37.0-47.0); Hemoglobin 11.5 g/dl (12.0-16.0); Imm Gran Abs Auto 0.03 X10*3/uL (0.00-0.03); Imm Gran Pct Auto 0.5 % (0.0-0.4); Lymphocytes Absolute Auto 1.8 X10*3/uL (1.2-4.9); Lymphocytes Percent Auto 30.2 % (20-40); Mean Corpuscular HGB Conc 31.3 g/dl (31.0-35.0); Mean Corpuscular Hemoglobin 26.7 pg (27.0-33.0); Mean Corpuscular Volume 85.3 fL (80.0-98.0); Mean Platelet Volume 11.9 fL (9.4-12.3); Monocytes Absolute Auto 0.4 X10*3/uL (0.1-1.2); Monocytes Percent Auto 6.1 % (2-11); Neutrophils Absolute Auto 3.4 x10*3/uL (2.0-8.3); Platelet Count 310 X10*3/uL (160-400); Red Cell Distribution Width 14.9 % (11.0-16.0); White Blood Count 5.9 X10*3/uL (4.8-10.8)
[2023-09-09 14:08] LABS: Alanine Aminotransferase 11 U/L (0-31); Albumin Level 4.1 g/dL (3.5-5.0); Alkaline Phosphatase 61 U/L (39-117); Anion Gap 10 (12-20); Aspartate Amino Transferase 16 U/L (5-31); Bilirubin Total 0.4 mg/dL (0.0-1.0); Blood Urea Nitrogen 13 mg/dL (9-16); Calcium 9.6 mg/dL (8.4-10.2); Carbon Dioxide 29 mmol/L (22-29); Chloride 106 mmol/L (96-108); Cholesterol 162 mg/dL (<200); Estimated Glomerular Filt Rate > 60; Glucose Fasting 81 mg/dL (60-99); HDL Cholesterol 68 mg/dL (>40); LDL Cholesterol Calculated 85 mg/dL (<100); Potassium 4.5 mmol/L (3.3-5.1); Sodium 140 mmol/L (135-145); Total Protein 7.4 g/dL (6.5-8.0); Triglycerides 46 mg/dL (<150)
[2023-09-09 14:27] LABS: TSH reflex Free T4 1.63 uIU/mL (0.32-4.0)
[2023-09-12 14:59] LABS: Vitamin D 25-OH, D2 <4 ng/mL; Vitamin D 25-OH, D3 26 ng/mL; Vitamin D 25-OH, Total 26 ng/mL (30-100)
== END 2023-09-09 09:39 | disposition home or self-care (01) ==
LOC: HO.HMGCLDS 09:38
PROVIDERS: PCP Internal Medicine; Visit Provider Internal Medicine
DX: Z13.6 Encounter for screening for cardiovascular disorders (principal); M54.16 Radiculopathy, lumbar region; M25.551 Pain in right hip; S73.004A Unspecified dislocation of right hip, initial encounter
CPT/HCPCS: 36415; 80053; 80061; 82306; 84443; 85025

== ENCOUNTER 2023-11-28 09:04 | Outpatient (AMB) | payer OTHER, SELFPAY ==
[2023-11-28 09:05] VITALS: BP 146/76; PULSE 84; TEMP 36.7; O2SAT 98; BMI 25.7
--- NOTE | 2023-11-28 09:05 | MHC.OFFWIV ---
Intake Vital Signs 11/28/23 09:05 Height 5 ft 7 in Weight 164 lb BMI 25.7 BP 146/76 H Blood Pressure Location Lt brachial Position Sitting Pulse 84 Pulse Source Pulse Oximeter Temp 98.1 F Temp Source Oral Pulse Oximetry (%) 98 Oxygen Delivery Method Room Air Intake Visit Reasons: EP RT arm pain Intake Note: Pt is here today c/o upper arm pain x8 wks no injury noted Patient Tobacco Use Status: Never used Tobacco Allergies No Known Allergies Allergy (Verified 11/28/23 09:06) HPI HPI Comments History of Present Illness Details 43-year-old female that presents for right arm pain. Patient has had persistent right arm pain for approximately 7-8 weeks with slowly getting worse. She denies any known trauma tick bites fevers chills. The pain is located primarily on the upper outer portion of the right arm. She has a history of back pain for which she takes tramadol that has not helped her pain. [facility] Medical History Pain management Labral tear of hip joint Surgical History History of right hip replacement History of arthroscopy History of section Family History Father Cancer of prostate Mother No problems noted. Brother No problems noted. Son No problems noted. Son No problems noted. Son No problems noted. 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 Cognitive needs: No Hearing needs: No Vision needs: Yes Physical Exam Vital Signs: Last Vital Signs Temp 98.1 F 11/28/23 09:05 Pulse 84 11/28/23 09:05 BP 146/76 H 11/28/23 09:05 Pulse Ox 98 11/28/23 09:05 Oxygen Delivery Method Room Air 11/28/23 09:05 BMI result Body Mass Index 25.7 Const General: cooperative, healthy appearing, no acute distress and alert Orientation/consciousness: patient oriented x3 Limitations: no limitations HEENT Head: Yes normal to inspection Ears: hearing grossly normal bilaterally General nose exam: Normal external nose present Resp Effort & Inspection: normal respiratory effort and able to speak in complete sentences Cardio Rate: regular rate Skin General skin exam: no rashes or lesions noted Neuro General: patient oriented x3 Extrem Other: TTP over the lateral aspect of the right upper arm. No tenderness over the joint. Strength only mildly diminished in the right side at 4/5 versus 5/. Pain with flexion and lateral raise General: Yes normal to inspection Assessment & Plan Assessment & Plan (1) Arm pain: Code(s): M79.603 - Pain in arm, unspecified Qualifiers: Laterality: right Qualified Code(s): M79.601 - Pain in right arm Plan: Right arm pain unclear etiology that appear to be in the joint space. In the absence of trauma no suspicion for acute fracture or bony abnormality. Suspect muscular in nature will refer to physical therapy in ortho. Continue with conservative management including topical NSAIDs and range of motion as tolerated. Considered x-ray but in the absence of any trauma and persistent nature of pain feel that low yield at this time Orders: Orders PT Evaluation and Treatment Today M79.601 - Pain in right arm Referrals Orthopedics Referral M79.601 - Pain in right arm Coding Level of Care Code Est Pt Level 3 (13966) Diagnoses Pain of right upper extremity M79.601 Laterality: right
== END 2023-11-28 09:25 | disposition home or self-care (01) ==
PROVIDERS: PCP Internal Medicine; Visit Provider Physician Assistant
DX: M79.601 Pain in right arm (principal)
CPT/HCPCS: 99213

== ENCOUNTER 2023-12-03 08:22 | Outpatient (AMB) | payer OTHER, SELFPAY ==
--- NOTE | 2023-12-03 08:48 | A.OFFPC_ITS ---
Intake Visit Reasons: Arm Pain~ [phone] Allergies No Known Allergies Allergy (Verified 12/03/23 08:49) Medication List - Last Reconciled 12/03/23 by Corinna Oquendo MD oxycodone-acetaminophen 5-325 mg (Percocet) 1 tab PO Q8H PRN 10 days tizanidine 2 mg PO ONCE 90 days tramadol 50 mg PO Q6H 30 days Tobacco use date assessed: 12/03/23 Dental Screening Dental Screen Date: 12/03/23 Did you have a dental visit in the last 12 months?: Yes Did you have a dental problem in the last 6 months where you did not have access to dental care?: No Was dental information given to patient?: Patient has dentist HPI Arm Pain~ [phone] HPI Details Patient is a 43-year-old female who has developed pain her right shoulder and it has been 8 weeks already Patient says that she is having difficulty sleeping at night or having difficulty lifting anything because of the weakness she is feeling around her shoulder. She was evaluated in walk-in clinic few days ago and referral was placed to orthopedic She has appointment as off today, number for orthopedic office provided to patient to call in book her own appointment. Patient is taking tramadol which was given to her for her hip pain, but tramadol is not helping with the pain. I have sent Percocet 30 tablets patient may take that 1 at night. I am also ordering MRI for the patient due to feeling weakness in her shoulder and pain going on for 8 weeks and is getting worse. Follow-up with orthopedic [facility] Medical History Pain management Labral tear of hip joint Surgical History History of right hip replacement History of arthroscopy History of section Family History Father Cancer of prostate Mother No problems noted. Brother No problems noted. Son No problems noted. Son No problems noted. Son No problems noted. 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 How often do you have a drink containing alcohol?: Never 3. How often do you have six or more drinks on one occasion?: Never Total Score: 0 Score Reviewed/Action Taken: Yes ARMANI-7 AMB Questionnaire ARMANI-7 Date ARMANI - 7 assessed: 04/14/23 Source: Developed by Drs. Tobias Moyer, Millie Hernandez, Quinn Gonzalez and colleagues, with an educational radha from [employer] Review of Systems Const Denies chills and Denies fever(s) ENT Denies epistaxis and Denies nasal discharge Card Denies chest pain Resp Denies chest congestion, Denies cough and Denies hemoptysis GI Denies diarrhea and Denies nausea Skin/Breast Denies rash Neuro Reports no additional complaints Psych Reports no additional complaints Endo Reports no additional complaints Physical exam (Primary Care) Tobacco/Smoking Status: Tobacco use Status Tobacco use date assessed 12/03/23 12/03/23 08:49 Patient Tobacco Use Status Never used Tobacco 12/03/23 08:49 e-Cigarette/Vaping Use Never Used 12/03/23 08:49 Thrive Assessment: Date of Thrive Assessment Date Thrive assessed 09/03/21 12/03/23 08:49 Telehealth Telehealth Telehealth Platform: [facility] Location of provider rendering services: practice address Location of patient: address on file Patient Identification confirmed using: Name, : Yes Telehealth method: video Patient verbally consented to treatment: Yes Patient verbally consented to billing insurance company: Yes Patient informed of any privacy concerns related to visit: Yes Assessment and Plan Assessment & Plan (1) Shoulder pain, acute: Code(s): M25.519 - Pain in unspecified shoulder Qualifiers: Laterality: right Qualified Code(s): M25.511 - Pain in right shoulder (2) Weakness of right shoulder: Code(s): R29.898 - Other symptoms and signs involving the musculoskeletal system (3) Pain management: Code(s): R52 - Pain, unspecified Plan Patient is a 43-year-old female who has developed pain her right shoulder and it has been 8 weeks already Patient says that she is having difficulty sleeping at night or having difficulty lifting anything because of the weakness she is feeling around her shoulder. She was evaluated in walk-in clinic few days ago and referral was placed to orthopedic She has appointment as off today, number for orthopedic office provided to patient to call in book her own appointment. Patient is taking tramadol which was given to her for her hip pain, but tramadol is not helping with the pain. I have sent Percocet 30 tablets patient may take that 1 at night. I am also ordering MRI for the patient due to feeling weakness in her shoulder and pain going on for 8 weeks and is getting worse. Follow-up with orthopedic Total time spent 30 minute including [id number] with the patient, reviewing the note, going over medications, completing visit note, coordination of care Orders: Orders MR shoulder RT wo/w con Today M25.519 - Pain in unspecified shoulder, R29.898 - Other symptoms and signs involving the musculoskeletal system Medications: New oxycodone-acetaminophen 5-325 mg (Percocet) Partial Fill upon patient request. 1 tab PO Q8H 10 days PRN 30 tabs 0RF pain Coding Level of Care Code Tele Est Pt Level 4 (79147) Diagnoses Acute pain of right shoulder M25.511 Laterality: right Weakness of right shoulder R29.898 Pain management R52
== END 2023-12-03 11:28 | disposition home or self-care (01) ==
LOC: HO.HMGC 08:22
PROVIDERS: PCP Internal Medicine; Visit Provider Internal Medicine
DX: M25.511 Pain in right shoulder (principal); R29.898 Other symptoms and signs involving the musculoskeletal system; R52 Pain, unspecified
CPT/HCPCS: 99214

== ENCOUNTER 2023-12-14 12:16 | Outpatient (REF) | payer OTHER, SELFPAY ==
--- NOTE | ~2023-12-14 | XR_ITS ---
EXAMINATION: XR SHOULDER, RIGHT CLINICAL INFORMATION: Pain shoulder. COMPARISON: None available. TECHNIQUE: Three views of the right shoulder. FINDINGS: Moderate degenerative changes in the acromioclavicular joint with joint space narrowing and hypertrophic change. Glenohumeral alignment preserved. Amorphous calcifications in the soft tissues along the superior aspect of the greater tuberosity suggesting calcific tendinitis. Focal sclerosis overlying the medial aspect of the normal head, possibly representing a bone island. XR/XR shoulder RT min 2V IMPRESSION: Degenerative changes in the right shoulder as detailed above.
== END 2023-12-14 12:17 | disposition home or self-care (01) ==
LOC: HO.HOSX 12:16
PROVIDERS: Visit Provider Orthopaedic Surgery
DX: M75.31 Calcific tendinitis of right shoulder (principal)
CPT/HCPCS: 20610; 73030; J0665; J1100

== ENCOUNTER 2023-12-14 13:27 | Outpatient (AMB) | payer OTHER, SELFPAY ==
--- NOTE | 2023-12-14 13:33 | MHC.OFFVIS ---
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 She was seen in [facility] [place] [place] [facility] In [facility] on 11/28/23 for this complaint where she was ordered PT and referred to Orthopedics. Patient reports it has been about 9-10 weeks of ongoing pain. She is having dull pains but certain movements cause sharp pains, soreness with palpation. She thought she slept on it wrong but states it is progressively getting worse. She is unable to turn her steering wheel, open up jars, hold objects such as a coffee mug without pain. She express occasional numbness and tingling is located in her bicep and radiates all the way into her ring finger and pinky finger of the right hand. At night she is not able to get comfortable and sleep due to her discomfort. 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 Her PCP prescribed her oxycodone with acetaminophen but this provides little relief, she is on day 4-5 of only taking it at night. She has not started PT yet, she is willing to try it if Dr Gomez finds it necessary. Her main concern is work. 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 She was seen in [facility] [place] [place] [facility] In [facility] on 11/28/23 for this complaint where she was ordered PT and referred to Orthopedics. Patient reports it has been about 9-10 weeks of ongoing pain. She is having dull pains but certain movements cause sharp pains, soreness with palpation. She thought she slept on it wrong but states it is progressively getting worse. She is unable to turn her steering wheel, open up jars, hold objects such as a coffee mug without pain. She express occasional numbness and tingling is located in her bicep and radiates all the way into her ring finger and pinky finger of the right hand. At night she is not able to get comfortable and sleep due to her discomfort. 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 Her PCP prescribed her oxycodone with acetaminophen but this provides little relief, she is on day 4-5 of only taking it at night. She has not started PT yet, she is willing to try it if Dr Gomez finds it necessary. Her main concern is work. [facility] Medical History Pain management Labral tear of hip joint Surgical History History of right hip replacement History of arthroscopy History of section Family History Father Cancer of prostate Mother No problems noted. Brother No problems noted. Son No problems noted. Son No problems noted. Son No problems noted. 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 Site was prepped using aseptic technique. Patient tolerated the procedure well. Primary Site: right shoulder Approach Used: posterolateral Coding 47407 - Large joint Procedure code (CPT) selection complete Results Reviewed Results Reviewed: I personally reviewed relevant radiographs. Lg calcium deposit right shoulder adjacent to greater tuberosity Assessment & Plan Assessment & Plan (1) Calcific tendonitis of right shoulder: Code(s): M75.31 - Calcific tendinitis of right shoulder Category: Medical Plan: Injected shoulder PT No overhead work and no lifting f/u 6 weeks Orders: Orders XR shoulder RT min 2V Today M25.519 - Pain in unspecified shoulder PT Evaluation and Treatment Today M75.31 - Calcific tendinitis of right shoulder Coding Level of Care Code New Pt Level 3 (29332) Diagnoses Calcific tendonitis of right shoulder M75.31 CPT Codes Coding - Large joint: 52247 - Large joint ([id number])
[2023-12-14 13:36] VITALS: BMI 25.7
== END 2023-12-14 14:33 | disposition home or self-care (01) ==
PROVIDERS: PCP Internal Medicine; Visit Provider Orthopaedic Surgery
DX: M75.31 Calcific tendinitis of right shoulder (principal)
CPT/HCPCS: 20610; 99203

== ENCOUNTER 2024-01-01 11:44 | Outpatient (AMB) | payer OTHER, SELFPAY ==
[2024-01-01 11:50] VITALS: BP 126/78; PULSE 74; O2SAT 98; BMI 25.5
--- NOTE | 2024-01-01 11:50 | MHC.PC.OV ---
Vital Signs 01/01/24 11:50 Height 5 ft 7 in Weight 163 lb BMI 25.5 BP 126/78 Blood Pressure Location Rt brachial Position Sitting Pulse 74 Pulse Source Pulse Oximeter Pulse Oximetry (%) 98 Oxygen Delivery Method Room Air Intake Visit Reasons: PE Allergies No Known Allergies Allergy (Verified 01/01/24 11:52) Medication List - Last Reconciled 01/01/24 by Corinna Oquendo MD tizanidine 2 mg PO ONCE 90 days tramadol 50 mg PO Q6H 30 days Tobacco use date assessed: 01/01/24 Dental Screening Dental Screen Date: 01/01/24 Did you have a dental visit in the last 12 months?: Yes Did you have a dental problem in the last 6 months where you did not have access to dental care?: No Was dental information given to patient?: Patient has dentist HPI PE HPI Details Patient is a 43-year-old female came in today for physical exam Patient is going to [facility] orthopedic for right shoulder pain She was not able to have MRI because of change of insurance However she had cortisone injection which did help She has follow-up appointment with Dr. Gomez Her back is acting up, I encouraged her to book appointment with her back specialist Her hip is not painful at this time Mammogram was September of this year at [facility] OBGYN was June of this Dr. Hunt Going ov her previous labs done in September of this year I see that she is slightly anemic with hemoglobin of 11.5 Kidney function liver functions were intact I am repeating CBC and iron level today. Follow-up 1 year physical exam [facility] Medical History Pain management Labral tear of hip joint Surgical History History of right hip replacement History of arthroscopy History of section Family History Father Cancer of prostate Mother No problems noted. Brother No problems noted. Son No problems noted. Son No problems noted. Son No problems noted. Social History Housing: House Alcohol intake: current Alcohol intake frequency: holidays/special occasions only Patient Tobacco Use Status: Never used Tobacco e-Cigarette/Vaping Use: Never Used service: No Current occupational status: employed and student Current occupation: [employer] / right hand dominant Cognitive needs: No Hearing needs: No Vision needs: Yes Questionnaire PHQ-9 Over the last 2 weeks, how often have you been bothered by any of the following problems? 1. Little interest or pleasure in doing things: not at all 2. Feeling down, depressed, or hopeless: several days 3. Trouble falling or staying asleep, or sleeping too much: several days 4. Feeling tired or having little energy: several days 5. Poor appetite or overeating: not at all 6. Feeling bad about yourself - or that you are a failure or have let yourself or your family down: not at all 7. Trouble concentrating on things, such as reading the newspaper or watching television: not at all 8. Moving or speaking so slowly that other people could have noticed. Or the opposite - being so fidgety or restless that you have been moving around a lot more than usual: not at all 9. Thoughts that you would be better off or of hurting yourself in some way: not at all Total score: 3 Depression Screening Interpretation: Negative Depression Screening Done: Yes 67326 - PHQ-9 Billing: Yes Source: Developed by Drs. Tobias Moyer, Millie Hernandez, Quinn Gonzalez and colleagues, with an educational radha from [employer]. Thrive Questionnaire Date Thrive assessed: 01/01/24 I am a: Patient What is your living situation today?: I have a steady place to live Within the past 12 months, did the food you bought not last and you didn't have the money to get more?: Never true Within the past 12 months, did you worry whether your food would run out before you got money to buy more?: Never true Do you have trouble paying for medicines?: No Do you have trouble getting transportation to medical appointments?: No Do you have trouble paying your heating and electricity bill?: No Do you have trouble taking care of your child, family member or friend?: No Do you have trouble with day-to-day activities such as bathing, preparing meals, shopping, managing finances, etc.?: No Are you currently unemployed and looking for a job?: No Are you interested in more education?: No Please select the resources that you would like help with: None Currently or been in a relationship where the following occur: No concerns reported THRIVE Score: 0 AUDIT C Alcohol Use Questionnaire (AUDIT-C) 1. How often do you have a drink containing alcohol?: Never 3. How often do you have six or more drinks on one occasion?: Never Total Score: 0 Score Reviewed/Action Taken: Yes ARMANI-7 AMB Questionnaire ARMANI-7 Date ARMANI - 7 assessed: 01/01/24 Feeling nervous, anxious, or on edge: 0 = Not at all Not being able to stop or control worryin = Not at all Worrying too much about different things: 0 = Not at all Trouble relaxin = Not at all Being so restless that it is hard to sit still: 0 = Not at all Becoming easily annoyed or irritable: 0 = Not at all Feeling afraid as if something awful might happen: 0 = Not at all Total ARMANI-7 score (0-4 normal; 5-9 mild; 10-14 moderate; 15-21 severe): 0 Source: Developed by Drs. Tobias Moyer, Millie Hernandez, Quinn Gonzalez and colleagues, with an educational radha from [employer]. ARMANI-7 Assessment Billing ARMANI-7 Assessment Tool: ARMANI-7 Assessment 21577 Review of Systems Const Denies chills, Denies fever(s) and Denies headache(s) Eyes Denies blurry vision ENT Denies headache(s), Denies nasal discharge, Denies nasal obstruction, Denies odynophagia and Denies sinus pain Card Denies chest pain at rest and Denies chest pain with activity Resp Denies cough and Denies hemoptysis GI Denies diarrhea, Denies odynophagia, Denies vomiting and Denies hematemesis Reports as per HPI Musc Denies abnormal gait Skin/Breast Reports as per HPI Neuro Denies Neuro-related abnormal movements, Denies Abnormal speech present, Denies abnormal gait, Denies headache(s) and Denies Sensory deficit (Neuro) Psych Denies mood swings and Denies paranoia Endo Reports as per HPI Crow/Lymph Reports as per HPI Aller/Immun Reports as per HPI Physical exam (Primary Care) Vital Signs: Last Vital Signs Pulse 74 01/01/24 11:50 BP 126/78 01/01/24 11:50 Pulse Ox 98 01/01/24 11:50 Oxygen Delivery Method Room Air 01/01/24 11:50 BMI result Body Mass Index 25.5 Tobacco/Smoking Status: Tobacco use Status Tobacco use date assessed 01/01/24 01/01/24 11:54 Patient Tobacco Use Status Never used Tobacco 01/01/24 11:54 e-Cigarette/Vaping Use Never Used 01/01/24 11:54 PHQ-9: PHQ-9 Score PHQ-9: Total score 3 01/01/24 12:05 Depression Screening Interpretation: Negative Thrive Assessment: Date of Thrive Assessment Date Thrive assessed 01/01/24 01/01/24 11:54 Currently or been in a relationship where the following occur: No concerns reported Const General: cooperative, comfortable and no acute distress Orientation/consciousness: patient oriented x3 HENMT Head: Yes normocephalic and Yes atraumatic Eyes General: appearance normal, both eyes and all related structures Pupils: Equal, round and reactive pupils present EOM: EOMs intact bilaterally Neck Neck: Yes supple and No lymphadenopathy Thyroid: Thyroid normal Lymphatic: no lymphadenopathy noted Resp Effort & Inspection: normal respiratory effort and able to speak in complete sentences Auscultation: clear to auscultation bilaterally Cardio Heart sounds: S1 normal heart sound present and S2 normal heart sound present GI Palpation (GI): Soft to palpation and nontender Auscultation: normal bowel sounds General: Yes no CVA tenderness Back/Spine/Pelvis Back: no CVA tenderness Skin General skin exam: elasticity normal and turgor normal Neuro General: patient oriented x3 and gait normal Cranial nerves: Yes Equal, round and reactive pupils present Speech: No Abnormal speech present Sensory Exam: No Sensory deficit (Neuro) Coordination: tandem gait normal and Romberg test negative Extrem General: Yes normal exam except as noted and No edema Shoulder/upper arm images: 1. Limited range of motion right shoulder Assessment and Plan Assessment & Plan (1) Anemia of chronic disease: Code(s): D63.8 - Anemia in other chronic diseases classified elsewhere (2) Encounter for general adult medical examination with abnormal findings: Code(s): Z00.01 - Encounter for general adult medical examination with abnormal findings (3) Calcific tendonitis of right shoulder: Code(s): M75.31 - Calcific tendinitis of right shoulder (4) Weakness of right shoulder: Code(s): R29.898 - Other symptoms and signs involving the musculoskeletal system Plan Patient is a 43-year-old female came in today for physical exam Patient is going to [facility] orthopedic for right shoulder pain She was not able to have MRI because of change of insurance However she had cortisone injection which did help She has follow-up appointment with Dr. Gomez Her back is acting up, I encouraged her to book appointment with her back specialist Her hip is not painful at this time Mammogram was September of this year at [facility] OBGYN was June of this year Dr. Hunt Going ov her previous labs done in September of this year I see that she is slightly anemic with hemoglobin of 11.5 Kidney function liver functions were intact I am repeating CBC and iron level today. Follow-up 1 year physical exam Orders: Orders Ferritin Today D63.8 - Anemia in other chronic diseases classified elsewhere Complete Blood Count Auto Diff Today D63.8 - Anemia in other chronic diseases classified elsewhere Coding Level of Care Code Est Pt Level 3 (41300) Est Pt Prev Care 40-64y(93647) Diagnoses Anemia of chronic disease D63.8 Encounter for general adult medical examination with abnormal findings Z00.01 Calcific tendonitis of right shoulder M75.31 Weakness of right shoulder R29.898 Additional Codes ARMANI-7 Assessment Billing - ARMANI-7 Assessment Tool: ARMANI-7 Assessment 66249 ([id number])
== END 2024-01-01 12:05 | disposition home or self-care (01) ==
PROVIDERS: PCP Internal Medicine; Visit Provider Internal Medicine
DX: Z00.01 Encounter for general adult medical examination with abnormal findings (principal); M75.31 Calcific tendinitis of right shoulder; D63.8 Anemia in other chronic diseases classified elsewhere; R29.898 Other symptoms and signs involving the musculoskeletal system
CPT/HCPCS: 99213; 99396

== ENCOUNTER 2024-01-01 12:05 | Outpatient (REF) | payer OTHER, SELFPAY ==
[2024-01-01 13:07] LABS: MANUAL DIFF FLAG NO
[2024-01-01 13:11] LABS: Basophils Absolute Auto 0.1 X10*3/uL (0.0-0.2); Basophils Percent Auto 1.3 % (0-2); Eosinophils Absolute Auto 0.2 X10*3/uL (0.0-0.4); Eosinophils Percent Auto 2.8 % (0-4); Hemoglobin 11.5 g/dl (12.0-16.0); Imm Gran Abs Auto 0.02 X10*3/uL (0.00-0.03); Imm Gran Pct Auto 0.4 % (0.0-0.4); Lymphocytes Absolute Auto 1.6 X10*3/uL (1.2-4.9); Lymphocytes Percent Auto 29.7 % (20-40); Mean Corpuscular HGB Conc 31.9 g/dl (31.0-35.0); Mean Corpuscular Hemoglobin 27.6 pg (27.0-33.0); Mean Corpuscular Volume 86.3 fL (80.0-98.0); Mean Platelet Volume 11.5 fL (9.4-12.3); Monocytes Absolute Auto 0.3 X10*3/uL (0.1-1.2); Monocytes Percent Auto 6.1 % (2-11); Neutrophils Absolute Auto 3.2 x10*3/uL (2.0-8.3); Neutrophils Percent Auto 59.7 % (45-73); Platelet Count 281 X10*3/uL (160-400); Red Blood Count 4.17 X10*6/uL (4.20-5.50); Red Cell Distribution Width 14.7 % (11.0-16.0); White Blood Count 5.4 X10*3/uL (4.8-10.8)
[2024-01-01 14:06] LABS: Ferritin 22 ng/mL (10-250)
== END 2024-01-01 12:06 | disposition home or self-care (01) ==
LOC: HO.HMGCLDS 12:05
PROVIDERS: PCP Internal Medicine; Visit Provider Internal Medicine
DX: D63.8 Anemia in other chronic diseases classified elsewhere (principal)
CPT/HCPCS: 36415; 82728; 85025

== ENCOUNTER 2024-01-29 12:44 | Outpatient (AMB) | payer OTHER, SELFPAY ==
--- NOTE | 2024-01-29 12:47 | A.OFFVIS_ITS ---
Intake Visit Reasons: OV-Pain right shoulder-RTC Intake Note: Hetal is 43 year old right hand dominant female who presents today for a follow up of her left shoulder calcific tendonitis, she was given an injection on 12/14/23 and instructed to work on light duty with no lifting or over head lifting. Patient reports that the injection has helped her pain significantly, she feels some soreness with lifting above shoulder height. She has occasional numbness through the forearm and into the palm of the left hand. Allergies No Known Allergies Allergy (Verified 01/01/24 11:52) HPI HPI OV-Pain right shoulder-RTC: Details: Hetal is 43 year old right hand dominant female who presents today for a follow up of her left shoulder calcific tendonitis, she was given an injection on and instructed to work on light duty with no lifting or over head lifting. Patient reports that the injection has helped her pain significantly, she feels some soreness with lifting above shoulder height. She has occasional numbness through the forearm and into the palm of the left hand. [facility] Medical History Pain management Labral tear of hip joint Surgical History History of right hip replacement History of arthroscopy History of section Family History Father Cancer of prostate Mother No problems noted. Brother No problems noted. Son No problems noted. Son No problems noted. Son No problems noted. 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 Mildly positive Tinel's at cubital and carpal tunnel Assessment & Plan Assessment & Plan (1) Calcific tendonitis of right shoulder: Code(s): M75.31 - Calcific tendinitis of right shoulder Category: Medical Plan: Shoulder is much improved after injection. She does have some calcific tendinitis which can refer. I do think she would benefit from a little physical therapy. She will let me know if her hand numbness tingling gets worse or if her shoulder pain gets worse. Coding Level of Care Code Est Pt Level 3 (84260) Diagnoses Calcific tendonitis of right shoulder M75.31
== END 2024-01-29 13:30 | disposition home or self-care (01) ==
PROVIDERS: PCP Internal Medicine; Visit Provider Orthopaedic Surgery
DX: M75.31 Calcific tendinitis of right shoulder (principal)
CPT/HCPCS: 99213

== ENCOUNTER → 2024-01-29 12:44 | Outpatient (BNVA) | payer OTHER, SELFPAY | PROVIDERS: PCP Internal Medicine; Visit Provider Orthopaedic Surgery ==

== ENCOUNTER 2024-04-29 12:33 | Outpatient (AMB) | payer OTHER, SELFPAY ==
--- NOTE | 2024-04-29 12:36 | A.OFFPC_ITS ---
Vital Signs 04/29/24 12:37 Height 5 ft 7 in Weight 166 lb 8 oz BMI 26.1 BP 118/78 Blood Pressure Location Lt brachial Position Sitting Pulse 85 Pulse Source Pulse Oximeter Pulse Oximetry (%) 98 Oxygen Delivery Method Room Air Intake Visit Reasons: Leg Pain Allergies No Known Allergies Allergy (Verified 04/29/24 12:37) Medication List - Last Reconciled 04/29/24 by Corinna Oquendo MD tizanidine 2 mg PO ONCE 90 days tramadol 50 mg PO TID 30 days Tobacco use date assessed: 04/29/24 Dental Screening Dental Screen Date: 04/29/24 Did you have a dental visit in the last 12 months?: Yes Did you have a dental problem in the last 6 months where you did not have access to dental care?: No Was dental information given to patient?: Patient has dentist HPI Leg Pain HPI Details Chief Complaint The patient reports numbing and weakness in lower back and legs, exacerbated by prolonged standing and sitting. Assessment and Plan 44-year-old female with a history of ricky cific tendinitis right shoulder and a previous disc protrusion at L4-L5, presenting with lumbar spinal stenosis. The primary reason for the visit is the evaluation of progressive numbness and discomfort in the back and down to the mid-thighs. There is no current bowel or bladder dysfunction, but there is a significant impact on function and increased symptoms. There is concern regarding the progression of her spinal stenosis and its effects on the neurological supply to her lower extremities, especially given her history of previous cortisone injections in her spine. Symptoms are consistent with spinal stenosis, potentially warranting further imaging to evaluate any morphological changes since the last MRI. Current treatment includes tramadol, but the patient reports increasing frequency in medication usage. 1. Disc Protrusion At L4-L5 Previously identified disc protrusion at L4-L5, which has been managed conservatively with cortisone injections. Further management will be based on the findings of the spine MRI, seeking possible progression of disc disease influencing current symptoms. 2. Lumbar Spinal Stenosis The patient presents with symptoms strongly suggestive of progression in spinal stenosis, including bilateral lower extremity numbness and back pain. An MRI of the spine was ordered to assess the current status of the stenosis. The decision to pursue surgical intervention will depend on imaging results and potential deterioration in motor function, bowel, or bladder control. Informed discussions surrounding the possible benefits, including decompressive surgery if deficits persist or worsen. 3. Calcific Tendinitis The patient has received prior cortisone injections for calcific tendinitis in the right shoulder. Currently, no acute exacerbation has been reported, and continuation of shoulder exercises is advised to maintain function and flexibility. Problem List - Calcific tendinitis right shoulder, st atus post cortisone injection by Dr. Gomez [facility] - Lumbar Spinal Stenosis - Disc protrusion at L4-L5 - Moderate facet arthropathy - Restless legs syndrome -paresthesia bilateral lower extremities associated with spinal stenosis Patient Instructions - Continue prescribed tramadol as needed for symptom management but be aware of increased usage. - Attend the scheduled MRI of the lumbar spine to evaluate current spinal status. - Follow up with a neurosurgeon, Dr. Jonn decker, if indicated post-MRI for further surgical evaluation. - Maintain current physical therapy exer cises for shoulder tendinitis; continue work modifications if experiencing symptoms. - Contact the clinic if experiencing any acute worsening of symptoms, especially new onset bowel or bladder changes, or significant increase in lower extremity weakness. 2021 MRI Lumber spine Disc degeneration and retrosubluxation at the L4-L5 level with a central disc protrusion, moderate facet arthropathy, and moderate central canal stenosis. Findings result in mass effect upon both L5 nerve roots in the subarticular zones. [facility] Medical History Pain management Labral tear of hip joint Surgical History History of right hip replacement History of arthroscopy History of section Family History Father Cancer of prostate Mother No problems noted. Brother No problems noted. Son No problems noted. Son No problems noted. Son No problems noted. 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 1. Little interest or pleasure in doing things: not at all 2. Feeling down, depressed, or hopeless: several days 3. Trouble falling or staying asleep, or sleeping too much: several days 4. Feeling tired or having little energy: several days 5. Poor appetite or overeating: several days 6. Feeling bad about yourself - or that you are a failure or have let yourself or your family down: not at all 7. Trouble concentrating on things, such as reading the newspaper or watching television: several days 8. Moving or speaking so slowly that other people could have noticed. Or the opposite - being so fidgety or restless that you have been moving around a lot more than usual: not at all 9. Thoughts that you would be better off or of hurting yourself in some way: not at all Total score: 5 Depression Screening Interpretation: Negative Depression Screening Done: Yes 13590 - PHQ-9 Billing: Yes Source: Developed by Drs. Tobias Moyer, Millie Hernandez, Quinn Gonzalez and colleagues, with an educational radha from [employer]. Thrive Questionnaire Date Thrive assessed: 04/29/24 I am a: Patient What is your living situation today?: I have a steady place to live Within the past 12 months, did the food you bought not last and you didn't have the money to get more?: I choose not to answer this question Within the past 12 months, did you worry whether your food would run out before you got money to buy more?: I choose not to answer this question Do you have trouble paying for medicines?: I choose not to answer this question Do you have trouble getting transportation to medical appointments?: No Do you have trouble paying your heating and electricity bill?: I choose not to answer this question Do you have trouble taking care of your child, family member or friend?: No Do you have trouble with day-to-day activities such as bathing, preparing meals, shopping, managing finances, etc.?: I choose not to answer this question Are you currently unemployed and looking for a job?: No Are you interested in more education?: No Please select the resources that you would like help with: None Currently or been in a relationship where the following occur: No concerns reported THRIVE Score: 0 AUDIT C Alcohol Use Questionnaire (AUDIT-C) 1. How often do you have a drink containing alcohol?: Monthly or less 2. How many drinks containing alcohol do you have on a typical day when you are drinking?: 1 or 2 3. How often do you have six or more drinks on one occasion?: Never Total Score: 1 Score Reviewed/Action Taken: Yes ARMANI-7 AMB Questionnaire ARMANI-7 Date ARMANI - 7 assessed: 04/29/24 Feeling nervous, anxious, or on edge: 1 = Several days Not being able to stop or control worryin = Not at all Worrying too much about different things: 1 = Several days Trouble relaxin = Several days Being so restless that it is hard to sit still: 0 = Not at all Becoming easily annoyed or irritable: 1 = Several days Feeling afraid as if something awful might happen: 1 = Several days Total ARMANI-7 score (0-4 normal; 5-9 mild; 10-14 moderate; 15-21 severe): 5 Source: Developed by Drs. Tobias Moyer, Millie Hernandez, Quinn Gonzalez and colleagues, with an educational radha from [employer]. ARMANI-7 Assessment Billing ARMANI-7 Assessment Tool: ARMANI-7 Assessment 33923 Review of Systems Const Denies chills and Denies fever(s) ENT Denies epistaxis and Denies nasal discharge Card Denies chest pain Resp Denies chest congestion, Denies cough and Denies hemoptysis GI Denies diarrhea and Denies nausea Skin/Breast Denies rash Neuro Reports no additional complaints Psych Reports no additional complaints Endo Reports no additional complaints Physical exam (Primary Care) Vital Signs: Last Vital Signs Pulse 85 04/29/24 12:37 BP 118/78 04/29/24 12:37 Pulse Ox 98 04/29/24 12:37 Oxygen Delivery Method Room Air 04/29/24 12:37 BMI result Body Mass Index 26.1 Tobacco/Smoking Status: Tobacco use Status Tobacco use date assessed 04/29/24 04/29/24 12:39 Patient Tobacco Use Status Never used Tobacco 04/29/24 12:39 e-Cigarette/Vaping Use Never Used 04/29/24 12:39 PHQ-9: PHQ-9 Score PHQ-9: Total score 5 04/29/24 12:50 Depression Screening Interpretation: Negative Thrive Assessment: Date of Thrive Assessment Date Thrive assessed 04/29/24 04/29/24 12:39 Currently or been in a relationship where the following occur: No concerns reported Const General: cooperative, comfortable and no acute distress Orientation/consciousness: patient oriented x3 HENMT Head: Yes normocephalic Eyes General: appearance normal, both eyes and all related structures Neck Neck: Yes supple Resp Effort & Inspection: normal respiratory effort, no cough and no stridor Cardio Rhythm: regular rhythm Heart sounds: S1 normal heart sound present and S2 normal heart sound present Skin General skin exam: turgor normal Neuro Other: Motor strength equal bilateral lower extremity, straight leg negative bilateral General: patient oriented x3, tone normal and moves all extremities Extrem Right lower extremity: no edema Left lower extremity: no edema Coding Level of Care Code Est Pt Level 4 (15628) Diagnoses Left lumbar radiculitis M54.16 Spinal stenosis at L4-L5 level M48.061 HNP (herniated nucleus pulposus), lumbar M51.26 Facet arthropathy, lumbar M47.816 Bilateral leg paresthesia R20.2 Additional Codes ARMANI-7 Assessment Billing - ARMANI-7 Assessment Tool: ARMANI-7 Assessment 39626 ([id number]) PHQ-9 - 63669 - PHQ-9 Billing: Yes ([id number]) Assessment & Plan Assessment & Plan (1) Left lumbar radiculitis: Code(s): M54.16 - Radiculopathy, lumbar region Category: Medical (2) Spinal stenosis at L4-L5 level: Code(s): M48.061 - Spinal stenosis, lumbar region without neurogenic claudication Category: Medical (3) HNP (herniated nucleus pulposus), lumbar: Code(s): M51.26 - Other intervertebral disc displacement, lumbar region Category: Medical (4) Facet arthropathy, lumbar: Code(s): M47.816 - Spondylosis without myelopathy or radiculopathy, lumbar region Category: Medical (5) Bilateral leg paresthesia: Code(s): R20.2 - Paresthesia of skin Category: Medical Plan Chief Complaint The patient reports numbing and weakness in lower back and legs, exacerbated by prolonged standing and sitting. Assessment and Plan 44-year-old female with a history of calcific tendinitis right shoulder and a previous disc protrusion at L4-L5, presenting with lumbar spinal stenosis. The primary reason for the visit is the evaluation of progressive numbness and discomfort in the back and down to the mid-thighs. There is no current bowel or bladder dysfunction, but there is a significant impact on function and increased symptoms. There is concern regarding the progression of her spinal stenosis and its effects on the neurological supply to her lower extremities, especially given her history of previous cortisone injections in her spine. Symptoms are consistent with spinal stenosis, potentially warranting further imaging to evaluate any morphological changes since the last MRI. Current treatment includes tramadol, but the patient reports increasing frequency in medication usage. 1. Disc Protrusion At L4-L5 Previously identified disc protrusion at L4-L5, which has been managed conservatively with cortisone injections. Further management will be based on the findings of the spine MRI, seeking possible progression of disc disease influencing current symptoms. 2. Lumbar Spinal Stenosis The patient presents with symptoms strongly suggestive of progression in spinal stenosis, including bilateral lower extremity numbness and back pain. An MRI of the spine was ordered to assess the current status of the stenosis. The decision to pursue surgical intervention will depend on imaging results and potential deterioration in motor function, bowel, or bladder control. Informed discussions surrounding the possible benefits, including decompressive surgery if deficits persist or worsen. 3. Calcific Tendinitis The patient has received prior cortisone injections for calcific tendinitis in the right shoulder. Currently, no acute exacerbation has been reported, and continuation of shoulder exercises is advised to maintain function and flexibility. Problem List - Calcific tendinitis right shoulder, status post cortisone injection by Dr. Gomez [facility] - Lumbar Spinal Stenosis - Disc protrusion at L4-L5 - Moderate facet arthropathy - Restless legs syndrome -paresthesia bilateral lower extremities associated with spinal stenosis Patient Instructions - Continue prescribed tramadol as needed for symptom management but be aware of increased usage. - Attend the scheduled MRI of the lumbar spine to evaluate current spinal status. - Follow up with a neurosurgeon, Dr. Sexton, if indicated post-MRI for further surgical evaluation. - Maintain current physical therapy exercises for shoulder tendinitis; continue work modifications if experiencing symptoms. - Contact the clinic if experiencing any acute worsening of symptoms, especially new onset bowel or bladder changes, or significant increase in lower extremity weakness. 2022 MRI Lumber spine Disc degeneration and retrosubluxation at the L4-L5 level with a central disc protrusion, moderate facet arthropathy, and moderate central canal stenosis. Findings result in mass effect upon both L5 nerve roots in the subarticular zones. Orders: Orders MR lumbar spine wo con Today M47.816 - Spondylosis without myelopathy or radiculopathy, lumbar region, M48.061 - Spinal stenosis, lumbar region without neurogenic claudication, M51.26 - Other intervertebral disc displacement, lumbar region, M54.16 - Radiculopathy, lumbar region, R20.2 - Paresthesia of skin Medications: Refilled tramadol Further refills will require office visit 50 mg PO TID 90 tabs 1RF pain 30 days tizanidine 2 mg PO ONCE 90 caps 0RF muscle spasticity 90 days
[2024-04-29 12:37] VITALS: BP 118/78; PULSE 85; O2SAT 98; BMI 26.1
== END 2024-04-29 12:58 | disposition home or self-care (01) ==
PROVIDERS: PCP Internal Medicine; Visit Provider Internal Medicine
DX: M54.16 Radiculopathy, lumbar region (principal); M48.061 Spinal stenosis, lumbar region without neurogenic claudication; M51.26 Other intervertebral disc displacement, lumbar region; M47.816 Spondylosis without myelopathy or radiculopathy, lumbar region; R20.2 Paresthesia of skin

== ENCOUNTER → 2024-04-29 12:33 | Outpatient (BNVA) | payer OTHER, SELFPAY | PROVIDERS: PCP Internal Medicine; Visit Provider Internal Medicine | DX: M47.26 Other spondylosis with radiculopathy, lumbar region (principal); M48.061 Spinal stenosis, lumbar region without neurogenic claudication; M51.26 Other intervertebral disc displacement, lumbar region; R20.2 Paresthesia of skin | CPT/HCPCS: 96127 ==

== ENCOUNTER 2024-07-16 09:25 | Outpatient (REF) | payer OTHER, SELFPAY | END 2024-07-16 09:26 | disposition home or self-care (01) | LOC: HO.MRI 09:25 | PROVIDERS: PCP Internal Medicine; Visit Provider Internal Medicine | DX: M51.26 Other intervertebral disc displacement, lumbar region (principal); M54.16 Radiculopathy, lumbar region; M48.061 Spinal stenosis, lumbar region without neurogenic claudication; M47.816 Spondylosis without myelopathy or radiculopathy, lumbar region; R20.2 Paresthesia of skin | CPT/HCPCS: 72148 ==

== ENCOUNTER → 2024-07-16 09:32 | Outpatient (BNV) | payer OTHER, SELFPAY | PROVIDERS: PCP Internal Medicine; Visit Provider Radiology Diagnostic Radiology | DX: M47.896 Other spondylosis, lumbar region (principal); M48.061 Spinal stenosis, lumbar region without neurogenic claudication | CPT/HCPCS: 72148 ==

== ENCOUNTER 2024-07-21 07:50 | Outpatient (AMB) | payer OTHER, SELFPAY ==
--- OUTSIDE RECORDS SUMMARY | 2024-07-21 07:52 | XMS_ITS | Data Portability ---
Author Organization [place] - [facility], [facility] [place] Office Address [address] [place] [address] Care Team Providers Care Sinter Feeder Name Role Phone MASOUDERWINSakina Primary Care Provider [phone] Assessment Encounter Date Assessment Date Assessment LastModified by Organization Details LastModified Time 10/10/2021 10/10/2021 Assessment: Concern is for persistent recurrent labral pathology however also progressive degenerative change articular cartilage with negative osteoarthritis. Question would be if she would still be a candidate for revision arthroscopy or if hip replacement would need to be discussed. Indicated that she does seem to have a significant separate spinal etiology Of Symptoms with an L4-L5 Disc Protrusion. An Injection Scheduled for Next Thursday and She Is Being Treated for That. Plan: At This Point I like to Obtain an Updated MRI to Assess the Degree of Interval Progression of Arthritic Changes. This Was Dictated Next Diagnostic and Therapeutic Steps. We Would Possibly Consider Injection to Manage Symptoms for Now or Referral for Second Opinion regarding Potential Benefits of Total Hip Replacement. [email or web address] Not available 10/10/2021 11:33:50 Plan of Treatment Reminders Order Date Submit Date Provider Last Modified By Organization Details Last Modified Time Details Appointments None recorded. Lab None recorded. Referral None recorded. Procedures None recorded. Surgeries None recorded. Imaging MRI, hip, w/o contrast - PLEASE CALL THE PT TO SCHEDULE Right hip MRI to include femoral anteversion assess labral tear, AVN, loose bodies and interval Progression of Arthritic Changes 2021 022 [email or web address] [facility] ([facility]), [address], [place], [address], 15:26:17 Medication Orders None recorded. Patient TargetsNo targets recorded. Patient InstructionsNo instructions recorded. Reason for Referral None Reported. Results Created Date Observation Date Name Description Value Unit Range Abnormal Flag Note LastModifiedBy Organization Detail LastModifiedTime 10/11/19 22 10/10/2021 XR, hip, unila teral http:/ /[email or web address] 44/opa lweb/I ntegra tionPr ocesso r.aspx ?CMD=O PENSTU DY&ACC ESSION =[id number], [address], 10/11/2021 08:25:46 01/25/20 22 01/17/2022 MRI, hip, w/o contr ast No observ ation record ed. [email or web address] [facility] ([facility]) [address] [facility], [place], [address], 01/29/2022 09:09:39 Result Notes None recorded. Procedures Surgical History Date Name Laterality Status Provider Name and Address Organization Details Recorded Time 06/08/19 21 Other completed Elena Silveira [place] - [facility] 10/10/2021 10:58:12 06/08/19 13 Orthopaedic Surgery completed Elena Silveira MA [facility] 10/10/2021 10:58:02 Imaging Results Imaging Date Name Status LastModified by Organiz ation Details LastModified Time 10/10/2021 XR, hip, unilateral completed [address], [address], 10/11/2021 08:25:46 01/17/2022 MRI, hip, w/o contrast completed [email or web address] [facility] ([facility]) [address], [place], [address], 01/29/2022 09:09:39 Procedure Notes None recorded. Medical Equipment None Reported. Allergies No known drug allergies Medications Name Sig Start Date Stop Date Status Note LastModified by Organization Details LastModified Time tramadol active Not Available Not Avai lable Not Available ibuprofen active Not Available Not Carissa ilable Not Available cyclobenzaprine (bulk) active Not Available Not Available Not Available Vitals Date Recorded Body height Body mass index (BMI) Body weight Provider Name and Address Organization Details Last Updated DateTime 10/10/2021 170.18 cm 25.4 kg/m2 27546.96 g Elena Silveira [facility] 10/10/2021 10:56:50 Social History Question Answer Notes LastModified by [employer] Details LastModified Time Tobacco Smoking Status Never Smoker Elena torres, [facility] 10/10/2021 10:56:10 What Is Your Level Of Alcohol Consumption? Occasional [email or web address] Information not available 10/10/2021 What Is Your Level Of Caffeine Consumption? Moderate [email or web address] Information not available 10/10/2021 Do You Or Have You Ever Used E-cigarettes Or Vape? 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 Never Used Smokeless Tobacco [email or web address] Information not available 10/10/2021 How Much Tobacco Do You Smoke? No [email or web address] Information not available 10/10/2021 How Many Years Have You Smoked Tobacco? 0 [email or web address] Information not available 10/10/2021 Sex: Unknown Functional Status Question Answer Note LastModified by [email or web address] Details LastModified Time What is your exercise level? Occasional [email or web address] Information not available 10/10/2021 Mental Status None recorded. Family History Relationship Description Onset Age of this Age Resolved Age Notes LastModified by Organization Details LastModified Time Father Family history of stroke [email or web address] Not available 10/2021 10:57:33 Mother Myocardial infarction [email or web address] Not available 10:57:54 Medical History Condition Response Osteoarthritis / Rheumatoid arthritis / Other Y Gynecological HistoryNo gynecological history recorded. Obstetrics History GPAL:G 0 P 0 0 0 0 Past Encounters Encounter ID Performer Location Encounter Start Date Encounter Closed Date Diagnosis/Indication Diagnosis SNOMED-CT Code Diagnosis ICD10 Code Diagnosis Note [id number] Hiwot Correiason [facility] Office [address] [place] [id number] 10/10/2021 10:28:51 10/10/2021 11:32:15 Hip pain 66174479 M25.551 Health Concerns Section Related Observation LastModified by Organization Detai ls LastModified Time None Recorded Concern Status LastModified by Organization Details LastModified Time None Recorded Advance Directives Directive None Recorded Payers Encounter Date Sequence Insurance Name Policy Number Policy Wood Covered Member ID Wood Member ID Guarantor Name 10/10/[address] [place] [address] [place] [place] [id number] Hetal Alva [id number] Hetal Alva Notes Date Note Type Note Provider Name and Address Organization Details Recorded Time 10/10/2021 text/html Hetal is a very pleasant 41-year-old female presenting today for evaluation regarding her right hip. She was sent to our practice by Dr. Orellana. She is status post 2 prior hip arthroscopies. First 1 [place] in [address] Goss and the second [address] Lucas in June 2020. The first surgery with a labral repair and femoroplasty the second surgery per the report diagnostic arthroscopy showing significant tearing of the anterior labrum and chondral labral junction with early arthritic changes. A chondral defect was noted measuring approximately 4 mm with loose cartilage on the acetabulum. No labral repair was documented. She has constant pain. Start up stiffness and pain. She has pain at night. She has not had any recent injections or advanced imaging. 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 This has significantly affected her ability to work as well. Hiwot Bridges [facility] 10/15/2021 15:59:13 OBGyn Episode No OBEpisode recorded.
--- NOTE | 2024-07-21 08:28 | A.OFFPC_ITS ---
Intake Visit Reasons: MRI results Allergies No Known Allergies Allergy (Verified 07/21/24 08:28) Medication List - Last Reconciled 07/21/24 by Corinna Oquendo MD tizanidine 2 mg PO ONCE 90 days tramadol 50 mg PO TID 30 days Tobacco use date assessed: 07/21/24 Dental Screening Dental Screen Date: 07/21/24 Did you have a dental visit in the last 12 months?: Yes Did you have a dental problem in the last 6 months where you did not have access to dental care?: No Was dental information given to patient?: Patient has dentist HPI MRI results HPI Details Continue to have back pain we repeated MRI , last MRI was in 2021 MRI showed L3-4: Broad-based disc bulging. Facet joint and ligamentum flavum hypertrophy. Reduced AP diameter of the thecal sac and neuroforamina. Without compression upon neural elements. L4-5: Broad-based disc bulging. Facet joint and ligamentum flavum hypertrophy. Reduced AP diameter of the thecal sac and the neural foramina encroaching the neural elements both thecal sac and exiting nerve roots. L5-S1: Broad-based disc bulging. Facet joint hypertrophy. No compression upon neural elements. No prevertebral compartment hematoma, mass or fluid collection. Hyperintense T2 cystic lesion in the right kidney. 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 Overall similar since prior exam. referral placed for Neurosurgery evalution and for Right renal cyst US ordered Patient has some dicomfort right flank as well PFSH Medical History Pain management Labral tear of hip joint Surgical History History of right hip replacement History of arthroscopy History of section Family History Father Cancer of prostate Mother No problems noted. Brother No problems noted. Son No problems noted. Son No problems noted. Son No problems noted. 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 How often do you have a drink containing alcohol?: Monthly or less 2. How many drinks containing alcohol do you have on a typical day when you are drinking?: 1 or 2 3. How often do you have six or more drinks on one occasion?: Never Total Score: 1 Score Reviewed/Action Taken: Yes ARMANI-7 AMB Questionnaire ARMANI-7 Date ARMANI - 7 assessed: 04/29/24 Source: Developed by Drs. Tobias Moyer, Millie Hernandez, Quinn Gonzalez and colleagues, with an educational radha from [employer]. Review of Systems Const Denies chills and Denies fever(s) ENT Denies epistaxis and Denies nasal discharge Card Denies chest pain Resp Denies chest congestion, Denies cough and Denies hemoptysis GI Denies diarrhea and Denies nausea Skin/Breast Denies rash Neuro Reports no additional complaints Psych Reports no additional complaints Endo Reports no additional complaints Physical exam (Primary Care) Tobacco/Smoking Status: Tobacco use Status Tobacco use date assessed 07/21/24 07/21/24 08:28 Patient Tobacco Use Status Never used Tobacco 07/21/24 08:28 e-Cigarette/Vaping Use Never Used 07/21/24 08:28 Thrive Assessment: Date of Thrive Assessment Date Thrive assessed 04/29/24 07/21/24 08:28 Telehealth Telehealth Telehealth Platform: [facility] Location of provider rendering services: practice address Location of patient: address on file Patient Identification confirmed using: Name, : Yes Telehealth method: voice only Patient verbally consented to treatment: Yes Patient verbally consented to billing insurance company: Yes Patient informed of any privacy concerns related to visit: Yes Minutes spent on Phone/Video with Pt.: 14 Coding Level of Care Code Tele Est Pt Level 3 (94020) Diagnoses Renal structural abnormality Q63.9 Facet arthropathy, lumbar M47.816 Bilateral leg paresthesia R20.2 HNP (herniated nucleus pulposus), lumbar M51.26 Assessment & Plan Assessment & Plan (1) Renal structural abnormality: Code(s): 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 Facet joint and ligamentum flavum hypertrophy. Reduced AP diameter of the thecal sac and neuroforamina. Without compression upon neural elements. L4-5: Broad-based disc bulging. Facet joint and ligamentum flavum hypertrophy. Reduced AP diameter of the thecal sac and the neural foramina encroaching the neural elements both thecal sac and exiting nerve roots. L5-S1: Broad-based disc bulging. Facet joint hypertrophy. No compression upon neural elements. No prevertebral compartment hematoma, mass or fluid collection. Hyperintense T2 cystic lesion in the right kidney. 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 Overall similar since prior exam. 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
== END 2024-07-21 09:42 | disposition home or self-care (01) ==
LOC: HO.HMCC 07:50
PROVIDERS: PCP Internal Medicine; Visit Provider Internal Medicine
DX: M47.816 Spondylosis without myelopathy or radiculopathy, lumbar region (principal); Q63.9 Congenital malformation of kidney, unspecified; R20.2 Paresthesia of skin; M51.26 Other intervertebral disc displacement, lumbar region

== ENCOUNTER → 2024-07-21 07:50 | Outpatient (BNVA) | payer OTHER, SELFPAY | PROVIDERS: PCP Internal Medicine; Visit Provider Internal Medicine ==

== ENCOUNTER 2024-08-05 13:48 | Outpatient (AMB) | payer OTHER, SELFPAY ==
[2024-08-05 13:51] VITALS: BP 116/74; PULSE 92; O2SAT 99; BMI 27.0
--- NOTE | 2024-08-05 13:51 | A.OFFPC_ITS ---
Vital Signs 08/05/24 13:51 Height 5 ft 7 in Weight 172 lb 4 oz BMI 27.0 BP 116/74 Blood Pressure Location Rt brachial Position Sitting Pulse 92 Pulse Source Pulse Oximeter Pulse Oximetry (%) 99 Oxygen Delivery Method Room Air Intake Visit Reasons: 3 month follow up Allergies No Known Allergies Allergy (Verified 08/05/24 13:51) Medication List - Last Reconciled 08/05/24 by oCrinna Oquendo MD tizanidine 2 mg PO ONCE 90 days tramadol 50 mg PO TID 30 days Tobacco use date assessed: 08/05/24 Dental Screening Dental Screen Date: 08/05/24 Did you have a dental visit in the last 12 months?: Yes Did you have a dental problem in the last 6 months where you did not have access to dental care?: No Was dental information given to patient?: Patient has dentist HPI 3 month follow up HPI Details History - The patient is a 44-year-old female pr esenting with lumbar spondylosis and associated pain. - Reports numbness and discomfort in the legs, with stopping sensation below the calves, correlating with an existing MRI diagnosis of lumbar spondylosis at L4- L5. - Has attempted Tramadol for pain, notin g diminished efficacy, described as merely ceferino to Tylenol. - Initiated Gabapentin therapy, starting with a low dose of 100 mg at night, titrating upwards for neuropathic pain control. - Concurrently experiences intermittent right-sided abdominal pain, with a suspected renal cyst under investigation through an upcoming ultrasound. - Will seek further consultation with a neurosurgeon (Dr. Keller or [place]) and will consider non-surgical pain management if surgery is not indicated. 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 - Start Gabapentin at 100 mg nightly for one week, then increase to 200 mg nightly; if tolerated, increase further as directed. - Continue with Tizanidine for muscle sp asms, especially at night. - Use heat therapy cautiously to avoid s kin injury. - Follow up with the neurosurgeon (Dr. Mallika Gutierrez or [place]) for further assessment regarding potential surgical intervention. - Attend the scheduled renal ultrasound for further evaluation of the suspected renal cyst. - Avoid lifting, pulling, or pushing mor e than 20 pounds at work; follow pro vided restrictions until further notice. Review of Systems - General: No fever no chills - Neurological: No headaches no dizziness - Ear nose throat: No sore throat no hearing difficulty no ear pain - Cardiovascular: No syncope, no chest pain, no palpitations - Gastrointestinal: No nausea vomiting or diarrhea - Endocrine: No polyuria polydipsia no heat intolerance - Genitourinary: No dysuria , no blood in urine Physical Exam General: No acute distress HEENT: No acute findings Neck: Supple Respiratory system: Able to talk in full sentences, no audible wheeze cardiovascular: S1-S2 regular in rate and rhythm Gastrointestinal: Pain in the right side here and there Extremities: Numbing feeling in legs, stops right below the calf 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 Brother No problems noted. Son No problems noted. Son No problems noted. Son No problems noted. 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 1. Little interest or pleasure in doing things: not at all 2. Feeling down, depressed, or hopeless: not at all 3. Trouble falling or staying asleep, or sleeping too much: several days 4. Feeling tired or having little energy: several days 5. Poor appetite or overeating: not at all 6. Feeling bad about yourself - or that you are a failure or have let yourself or your family down: not at all 7. Trouble concentrating on things, such as reading the newspaper or watching television: not at all 8. Moving or speaking so slowly that other people could have noticed. Or the opposite - being so fidgety or restless that you have been moving around a lot more than usual: not at all 9. Thoughts that you would be better off or of hurting yourself in some way: not at all Total score: 2 Depression Screening Interpretation: Negative Depression Screening Done: Yes 45156 - PHQ-9 Billing: Yes Source: Developed by Drs. Tobias Moyer, Millie Hernandez, Quinn Gonzalez and colleagues, with an educational radha from [employer]. Thrive Questionnaire Date Thrive assessed: 08/05/24 I am a: Patient What is your living situation today?: I have a steady place to live Within the past 12 months, did the food you bought not last and you didn't have the money to get more?: I choose not to answer this question Within the past 12 months, did you worry whether your food would run out before you got money to buy more?: I choose not to answer this question Do you have trouble paying for medicines?: I choose not to answer this question Do you have trouble getting transportation to medical appointments?: No Do you have trouble paying your heating and electricity bill?: No Do you have trouble taking care of your child, family member or friend?: No Do you have trouble with day-to-day activities such as bathing, preparing meals, shopping, managing finances, etc.?: No Are you currently unemployed and looking for a job?: No Are you interested in more education?: No Please select the resources that you would like help with: None Currently or been in a relationship where the following occur: No concerns reported THRIVE Score: 0 AUDIT C Alcohol Use Questionnaire (AUDIT-C) 1. How often do you have a drink containing alcohol?: Monthly or less 2. How many drinks containing alcohol do you have on a typical day when you are drinking?: 1 or 2 3. How often do you have six or more drinks on one occasion?: Less than monthly Total Score: 2 Score Reviewed/Action Taken: Yes ARMANI-7 AMB Questionnaire ARMANI-7 Date ARMANI - 7 assessed: 08/05/24 Feeling nervous, anxious, or on edge: 1 = Several days Not being able to stop or control worryin = Several days Worrying too much about different things: 1 = Several days Trouble relaxin = Several days Being so restless that it is hard to sit still: 0 = Not at all Becoming easily annoyed or irritable: 1 = Several days Feeling afraid as if something awful might happen: 0 = Not at all Total ARMANI-7 score (0-4 normal; 5-9 mild; 10-14 moderate; 15-21 severe): 5 Source: Developed by Drs. Tobias Moyer, Millie Hernandez, Quinn Gonzalez and colleagues, with an educational radha from [employer]. ARMANI-7 Assessment Billing ARMANI-7 Assessment Tool: ARMANI-7 Assessment 48151 Physical exam (Primary Care) Vital Signs: Last Vital Signs Pulse 92 08/05/24 13:51 BP 116/74 08/05/24 13:51 Pulse Ox 99 08/05/24 13:51 Oxygen Delivery Method Room Air 08/05/24 13:51 BMI result Body Mass Index 27.0 Tobacco/Smoking Status: Tobacco use Status Tobacco use date assessed 08/05/24 08/05/24 13:59 Patient Tobacco Use Status Never used Tobacco 08/05/24 13:59 e-Cigarette/Vaping Use Never Used 08/05/24 13:59 PHQ-9: PHQ-9 Score PHQ-9: Total score 2 08/05/24 13:59 Depression Screening Interpretation: Negative Thrive Assessment: Date of Thrive Assessment Date Thrive assessed 08/05/24 08/05/24 13:59 Currently or been in a relationship where the following occur: No concerns reported Coding Level of Care Code Est Pt Level 3 (97447) Diagnoses HNP (herniated nucleus pulposus), lumbar M51.26 Renal structural abnormality Q63.9 Facet arthropathy, lumbar M47.816 Bilateral leg paresthesia R20.2 Additional Codes ARMANI-7 Assessment Billing - ARMANI-7 Assessment Tool: ARMANI-7 Assessment 97385 ([id number]) PHQ-9 - 07983 - PHQ-9 Billing: Yes ([id number]) Assessment & Plan Assessment & Plan (1) HNP (herniated nucleus pulposus), lumbar: Code(s): M51.26 - Other intervertebral disc displacement, lumbar region Category: Medical (2) Renal structural abnormality: Code(s): 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 - Reports numbness and discomfort in the legs, with stopping sensation below the calves, correlating with an existing MRI diagnosis of lumbar spondylosis at L4- L5. - Has attempted Tramadol for pain, noting diminished efficacy, described as merely ceferino to Tylenol. - Initiated Gabapentin therapy, starting with a low dose of 100 mg at night, titrating upwards for neuropathic pain control. - Concurrently experiences intermittent right-sided abdominal pain, with a suspected renal cyst under investigation through an upcoming ultrasound. - Will seek further consultation with a neurosurgeon (Dr. Keller or [place]) and will consider non-surgical pain management if surgery is not indicated. 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 - Start Gabapentin at 100 mg nightly for one week, then increase to 200 mg nightly; if tolerated, increase further as directed. - Continue with Tizanidine for muscle spasms, especially at night. - Use heat therapy cautiously to avoid skin injury. - Follow up with the neurosurgeon (Dr. Keller or [place]) for further assessment regarding potential surgical intervention. - Attend the scheduled renal ultrasound for further evaluation of the suspected renal cyst. - Avoid lifting, pulling, or pushing more than 20 pounds at work; follow provided restrictions until further notice. Medications: New gabapentin one cap for a week at night and then 2 cap every night 100 mg PO BEDTIME 30 caps 0RF Refilled tramadol Further refills will require office visit 50 mg PO TID 30 days 90 tabs 2RF pain tizanidine 2 mg PO ONCE 90 days 90 caps 1RF muscle spasticity
--- OUTSIDE RECORDS SUMMARY | 2024-08-05 15:57 | XMS_ITS | Clinical Summary ---
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 Name Role Phone Corinna Oquendo MD Primary Care Provider [phone] Social History Tobacco Use Types Packs/Day Years Used Date Smoking Tobacco: Never Assessed Comments Unknown Sex and Gender Information Value Date Recorded Sex Assigned at Not on file Legal Sex Female 4:09 PM EST Gender Identity Not on file Sexual Orientation Not on file Plan of Treatment Upcoming Encounters Date Type Department Care Team (Late st Contact Info) Description 08/09/2024 3:30 PM EST Consult Neurosurgery [facility] [address] [facility] [address] [place] [address] Saturnino Mc PA [address] [facility] [address] [place] [address] Health Maintenance Due Date Last Done Comments Breast Cancer Screening 1981 DTaP,Tdap,and Td Vaccines (1 - Tdap) 01/31/2000 Hepatitis B Vaccines (1 of 3 - 19+ 3-dose series) 01/31/2000 Cervical Cancer Screening: P ap Smear 2002 COVID-19 Vaccine ( - 2023-2 5 season) 2024 Influenza Vaccine (#1) 2024 Depression Screening 07/23/2024 HIV Screening 07/23/2024 Hepatitis C Screening 07/23/2024 Social Influencers of Health Screening 07/23/2024 HIB Vaccines Aged Out No longer eligi ble based on patient's age to complete this topic HPV Vaccines Aged Out No longer eligi ble based on patient's age to complete this topic Hepatitis A Vaccines Aged Out No long er eligible based on patient's age to complete this topic IPV Vaccines Aged Out No longer eligi ble based on patient's age to complete this topic MMR Vaccines Aged Out No longer eligi ble based on patient's age to complete this topic Meningococcal ACWY Vaccine Aged Out N o longer eligible based on patient's age to complete this topic Meningococcal B Vacine Aged Out No lo nger eligible based on patient's age to complete this topic Pneumococcal Vaccine: Pediat rics (0 to 5 Years) and At-Risk Patients (6 to 64 Years) Aged Out No longer eligible b ased on patient's age to complete this topic RSV Immunization Patients Un estela 20 months Aged Out No longer eligible b ased on patient's age to complete this topic Varicella Vaccines Aged Out No longer eligible based on patient's age to complete this topic Insurance [employer] Care Teams Brineyard Supervisor Relationship Specialty Start Date End Date Corinna Oquendo MD [address] [place] [id number] PCP - General Internal Medicine 07/22/24
== END 2024-08-05 14:19 | disposition home or self-care (01) ==
PROVIDERS: PCP Internal Medicine; Visit Provider Internal Medicine
DX: M51.26 Other intervertebral disc displacement, lumbar region (principal); Q63.9 Congenital malformation of kidney, unspecified; M47.816 Spondylosis without myelopathy or radiculopathy, lumbar region; R20.2 Paresthesia of skin

== ENCOUNTER → 2024-08-05 13:48 | Outpatient (BNVA) | payer OTHER, SELFPAY | PROVIDERS: PCP Internal Medicine; Visit Provider Internal Medicine | DX: M51.26 Other intervertebral disc displacement, lumbar region (principal); M47.816 Spondylosis without myelopathy or radiculopathy, lumbar region; M48.061 Spinal stenosis, lumbar region without neurogenic claudication; R20.2 Paresthesia of skin; Q63.9 Congenital malformation of kidney, unspecified | CPT/HCPCS: 96127 ==

== ENCOUNTER 2024-08-15 13:58 | Outpatient (REF) | payer OTHER, SELFPAY ==
--- NOTE | ~2024-08-15 | US_ITS ---
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 There is anechoic area of the upper pole kidney 1.7 x 1.9 x 1.8 cm and 0.8 x 0.8 x 1 cm. Incidental finding of a 1.8 x 1.3 x 1.4 cm echogenic lesion of the right liver lobe. IMPRESSION: Two adjacent cysts or septated cyst of the upper pole right kidney. Echogenic lesion of the liver could represent a hemangioma. However, the sonographic finding is nonspecific. Ultrasound follow-up or further evaluation by contrast CT/MRI as indicated. This document has been electronically signed by: Seamus Jin MD on 08/16/2024 15:44:24
--- OUTSIDE RECORDS SUMMARY | 2024-08-15 15:53 | XMS_ITS | Clinical Summary ---
Author Organization 175 [facility] Address [address] [place] [address] Phone Care Team Providers Care Swimming Pool Attendant Name Role Phone Corinna Oquendo MD Primary Care Provider [phone] Allergies No known active allergies Medications traMADoL (ULTRAM) 50 mg tablet TAKE 1 TABLET BY MOUTH THREE TIMES DAILY FOR PAIN 08/05/2024 Active tiZANidine (ZANAFLEX) 2 mg capsule TAKE 1 CAPSULE BY MOUTH ONCE DAILY FOR MUSCLE SPASMS 08/05/2024 Active gabapentin (NEURONTIN) 100 mg capsule TAKE 1 CAPSULE BY MOUTH DAILY EVERY NIGHT FOR 1 WEEK THEN 2 CAPSULES EVERY NIGHT 08/05/2024 Active Active Problems Problem Noted Date Diagnosed Date Lumbosacral spondylosis with radiculopathy 08/09 Assessment & Plan (08/09/2024 4:53 PM EST): Ms. Alva describes chronic low back pain and about 2 months of numbness radiating into the buttocks, posterior thighs, and midway down the posterior calves. She has been to physical therapy and takes NSAIDs without relief. She is neurologically intact. She has MRIs of the lumbar spine from August 31, 2021 and more recently July 16, 2024. These reveal mild to moderate desiccation with minimal loss of disc height at L4-5. There is some disc bulging at that level with contact of the descending L5 nerve roots. I spoke with Ms. Alva and explained she had degenerative changes in the lower lumbar spine consistent with L4-5 degenerative disc disease but that it was mild. She is certainly not in a place where she would consider lumbar fusion and I would not recommend it. She would like to avoid surgery altogether and I think that is reasonable. I do not think that the stenosis at L4-[address] Keller would offer her decompression surgery. We talked about acupuncture and chiropractic treatments as other reasonable conservative modalities. I gave her a paper on natural anti-inflammatory agents for pain relief in athletes. I gave her my card and she is welcome to follow-up with us in the future on an as-needed basis. Encounters Date Type Department Care Team Description 08/09/2024 3:30 PM EST Consult Neurosurgery [facility] [address] [facility] [address] [place] [address] Saturnino Mc PA Lumbosacral spondylosis with radiculopathy (Primary Dx); Spondylosis without myelopathy or radiculopathy, lumbar region; Other intervertebral disc displacement, lumbar region from Last 3 Months Immunizations Name Administration Dates Next Due Influenza Quadrivalent, with preservative (Fluzone; Afluria) 6mo and older 03/04/2017,04/01/2016 Tdap Tetanus diptheria acell ular pertussis (Boostrix; Adacel) 7yo and older 04/01/2016 Surgical History Surgery Date Site/Laterality Comments OTHER SURGICAL HISTORY Right History of right hip replacement - 09/2022 OTHER SURGICAL HISTORY N/A History of Arthroscopy SECTION N/A 3 times EYE SURGERY N/A 2022 OTHER SURGICAL HISTORY N/A Varisose veins removal Medical History Medical History Date Comments Labral tear of hip joint Low back pain Arthritis Family History Medical History Relation Name Comments Prostate cancer Father Relation Name Status Comments Father Social History Tobacco Use Types Packs/Day Years Used Date Smoking Tobacco: Never Smokeless Tobacco: Never Comments Unknown Sex and Gender Information Value Date Recorded Sex Assigned at Not on file Legal Sex Female 4:09 PM EST Gender Identity Not on file Sexual Orientation Not on file Obstetrics History Last Filed Vital Signs Vital Sign Reading Time Taken Comments Blood Pressure - - Pulse - - Temperature - - Respiratory Rate - - Oxygen Saturation - - Inhaled Oxygen Concentration - - Weight 74.8 kg (165 lb) 08/09/2024 3:38 PM EST Height 170.2 cm (5' 7 ) 08/09/2024 3:38 PM EST Body Mass Index 25.84 08/09/2024 3:38 PM EST Plan of Treatment Health Maintenance Due Date Last Done Comments Breast Cancer Screening 1980 Hepatitis B Vaccines (1 of 3 - 19+ 3-dose series) 01/31/2000 Cervical Cancer Screening: P ap Smear 2002 COVID-19 Vaccine (2023-2 5 season) 2024 Influenza Vaccine (#1) 2024 7, 04/01/2016 Depression Screening 07/23/2024 HIV Screening 07/23/2024 Hepatitis C Screening 07/23/2024 Social Influencers of Health Screening 07/23/2024 DTaP,Tdap,and Td Vaccines (2 - Td or Tdap) 04/01/2026 04/01/2016 HIB Vaccines Aged Out No longer eligi [...] age to complete this topic Pneumococcal Vaccine: Pediatrics (0 to 5 Years) and At-Risk Patients (6 to 64 Years) Aged Out No longer eligible b ased on patient's age to complete this topic RSV Immunization Patients Under 20 months Aged Out No longer eligible b ased on patient's age to complete this topic Varicella Vaccines Aged Out No longer eligible based on patient's age to complete this topic Insurance [employer] Care Teams Swimming Pool Attendant Relationship Specialty Start Date End Date Corinna Oquendo MD [address] [place] [id number] PCP - General Internal Medicine 07/22/24
--- OUTSIDE RECORDS SUMMARY | 2024-08-15 15:53 | XMS_ITS | Data Portability ---
Author Organization [place] - [facility] [place], [facility] [place] Address [address] [facility] [place] [address] Care Team Providers Care Schedule Hanger Name Role Phone KRISTA MEREDITH Primary Care Provider Assessment Encounter Date Assessment Date Assessment LastModified [...] regarding Potential Benefits of Total Hip Replacement. [email or web address] Not available 10/10/2021 11:33:50 Plan of Treatment [...] Progression of Arthritic Changes 2021 022 [email or web address] [facility] ([facility]), [address], [place], [address], 15:26:17 Medication Orders None recorded. Patient TargetsNo targets recorded. Patient InstructionsNo instructions recorded. Reason for Referral None Reported. Results Created Date Observation Date Name Description Value Unit Range Abnormal Flag Note LastModifiedBy Organization Detail LastModifiedTime 10/11/19 22 10/10/2021 XR, hip, unila teral http:/ /[email or web address] 44/opa lweb/I ntegra tionPr ocesso r.aspx ?CMD=O PENSTU DY&ACC ESSION =[id number], [address], 10/11/2021 08:25:46 01/25/20 22 01/17/2022 MRI, hip, w/o contr ast No observ ation record ed. [email or web address] [facility] ([facility]) [address] [place], [address], 01/29/2022 09:09:39 Result Notes None recorded. Procedures Surgical History Date Name Laterality Status Provider Name and Address Organization Details Recorded Time 06/08/19 21 Other completed Elena Silveira MA [facility] [place] 10/10/2021 10:58:12 06/08/19 13 Orthopaedic Surgery completed Elena Silveira MA [facility] [place] 10/10/2021 10:58:02 Imaging Results Imaging Date Name Status LastModified by Organiz ation Details LastModified Time 10/10/2021 XR, hip, unilateral completed [address], [address], 10/11/2021 08:25:46 01/17/2022 MRI, hip, w/o contrast completed [facility] [facility] ([facility]) [address], [place], [address], 01/29/2022 09:09:39 Procedure Notes None recorded. Medical [...] Updated DateTime 10/10/2021 170.18 cm 25.4 kg/m2 69338.96 g Elena Silveira [facility] [place] 10/10/2021 10:56:50 Social History Question Answer Notes LastModified by [employer] Details LastModified Time Tobacco Smoking Status Never Smoker Elena Silveira null, [facility] [place] 10/10/2021 10:56:10 What Is Your Level Of Alcohol Consumption? Occasional [email or web address] Information not available 10/10/2021 What Is Your Level Of Caffeine Consumption? Moderate [email or web address] Information not available 10/10/2021 Do You Or Have You Ever Used E-cigarettes Or Vape? 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 Never Used Smokeless Tobacco [email or web address] Information not available 10/10/2021 How Much Tobacco Do You Smoke? No [email or web address] Information not available 10/10/2021 How Many Years Have You Smoked Tobacco? 0 Information not available 10/10/2021 Sex: Unknown Functional Status Question Answer Note LastModified by [employer] Details LastModified Time What is your exercise level? Occasional Information not available 10/10/2021 Mental Status None recorded. Family History Relationship Description Onset Age of this Age Resolved Age Notes LastModified by Organization Details LastModified Time Father Family history of stroke [email or web address] Not available 10/2021 10:57:33 Mother Myocardial infarction [email or web address] Not available 10:57:54 Medical History Condition Response Osteoarthritis / Rheumatoid arthritis / Other Y Gynecological HistoryNo gynecological history recorded. Obstetrics History GPAL:G 0 P 0 0 0 0 Past Encounters Encounter ID Performer Location Encounter Start Date Encounter Closed Date Diagnosis/Indication Diagnosis SNOMED-CT Code Diagnosis ICD10 Code Diagnosis [id number] Office [address] [place] [address] 10/10/2021 10:28:51 10/10/2021 11:32:15 Hip pain 46585393 M25.551 Health Concerns Section Related Observation LastModified by Organization Detai ls LastModified Time None Recorded Concern Status LastModified by Organization Details LastModified Time None Recorded Advance Directives Directive None Recorded Payers Encounter Date Sequence Insurance Name Policy Number Policy Wood Covered Member ID Wood Member ID Guarantor Name 10/10/[address] [place] [address] [place] [place] [id number] Hetal Alva [id number] Hetal Alva Notes Date Note Type Note [...] ability to work as well. Hiwot Bridges [place], [place] - [facility] [place] 10/15/2021 15:59:13 OBGyn Episode No OBEpisode recorded.
--- OUTSIDE RECORDS SUMMARY | 2024-08-15 15:53 | XMS_ITS | Encounter Summary ---
Author Organization [facility] Address [address] [place] [address] Care Team Providers Care Storeperson Name Role Phone Corinna Oquendo MD Primary Care Provider [phone] Reason for Visit * Reason Comments Back Pain Numbness In legs to mid calf and balance issues * Consultation (Routine) - Closed Specialty Diagnoses / Procedures Referred By Contac t Referred To Contact Neurosurgery Diagnoses Spondylosis without myelopathy or radiculopathy, lumbar region Other intervertebral disc displacement, lumbar region Corinna Oquendo MD [address] [place] [address] Phone: tel: Idalia Keller MD [address] [place] [address] Phone: tel: fax: Referral ID Status Reason Start Date Expiration Date V isits Requested Visits Authorized [id number] Closed Specialty Services Required 07/25/2024 07/25/2025 1 1 Encounter Details Date Type Department Care Team (Late st Contact Info) Description 08/09/2024 3:30 PM EST Consult Neurosurgery [facility] [address] [facility] [address] [place] [phone] Saturnino Mc PA [address] [facility] [address] [place] [address] Lumbosacral spondylosis with radiculopathy (Primary Dx); Spondylosis without myelopathy or radiculopathy, lumbar region; Other intervertebral disc displacement, lumbar region Social History Tobacco Use Types Packs/Day Years Used Date Smoking Tobacco: Never Smokeless Tobacco: Never Comments Unknown Sex and Gender Information Value Date Recorded Sex Assigned at Not on file Legal Sex Female 4:09 PM EST Gender Identity Not on file Sexual Orientation Not on file documented as of this encounter Last Filed Vital Signs Vital Sign Reading Time Taken Comments Blood Pressure - - Pulse - - Temperature - - Respiratory Rate - - Oxygen Saturation - - Inhaled Oxygen Concentration - - Weight 74.8 kg (165 lb) 08/09/2024 3:38 PM EST Height 170.2 cm (5' 7 ) 08/09/2024 3:38 PM EST Body Mass Index 25.84 08/09/2024 3:38 PM EST documented in this encounter Progress Notes * KELLI Dominguez - 08/09/2024 4:53 PM ESTAssociated Problem(s): Lumbosacral spondylosis with radiculopathy Ms. Alva describes chronic low back pain [...] at that level with contact of the descendingL5 nerve roots. I spoke with Ms. Alva [...] in the future on an as-needed basis. * KELLI Dominguez - 08/09/2024 3:30 PM EST NEW PATIENT CONSULTATION Date of Visit: 08/09/2024 Referring Physician: Corinna Oquendo MD Primary Care Physician: Corinna Oquendo MD RE: Hetal Alva : 1980 Chief Complaint Patient presents with Back Pain Numbness In legs to mid calf and balance issues Dear Corinna Dee MD Thank you for referring Ms. Alva to our office today. Hetal Alva is a 44 y.o. female who presents to our office with pain in the low back for about 3 years. More recently she has developed some numbness from the back into the buttocks, posterior thighs, and down to the midpoint of the calves bilaterally. This has been going on for about 2 months. She takes NSAIDs at home. Past Medical History: Diagnosis Date Arthritis Labral tear of hip joint Low back pain Past Surgical History: Procedure Laterality Date SECTION N/A 3 times EYE SURGERY N/A 2022 OTHER SURGICAL HISTORY Right History of right hip replacement - 09/2022 OTHER SURGICAL HISTORY N/A History of Arthroscopy OTHER SURGICAL HISTORY N/A Varisose veins removal No Known Allergies Current Outpatient Medications Medication Instructions gabapentin (NEURONTIN) 100 mg capsule TAKE 1 CAPSULE BY MOUTH DAILY EVERY NIGHT FOR 1 WEEK THEN 2 CAPSULES EVERY NIGHT tiZANidine (ZANAFLEX) 2 mg capsule TAKE 1 CAPSULE BY MOUTH ONCE DAILY FOR MUSCLE SPASMS traMADoL (ULTRAM) 50 mg tablet TAKE 1 TABLET BY MOUTH THREE TIMES DAILY FOR PAIN Social History Tobacco Use Smoking status: Never Smokeless tobacco: Never Vaping Use Vaping status: Never Used Social History Social History Narrative Not on file Family History Problem Relation Name Age of Onset Prostate cancer Father Physical Exam On examination, Ms. Alva is awake and alert and oriented. Speech was clear and fluent. Respirations were unlabored. Heart had a regular rate. She ambulates in the office without difficulty. She hadgood strength in all major muscle groups of the upper and lower extremities. Deep tendon reflexes were 1-2+ and symmetric. There were no myelopathic findings. Hip mechanical testing was deferred secondary to her hip replacement surgery. She had mild tenderness in the L4-5 region of the low back without any step-off or deformity. Imaging Diagnostic studies include an MRI of the lumbar spine from [facility] on August 31nd more recently on July 16, 2024. These revealed mild desiccation, mild loss of disc height, and some bulging at L4-5. This caused mild to moderate stenosis with possible contact but not compression of the bilateral descending L5 nerve roots. Assessment/Plan Problem List Items Addressed This Visit Lumbosacral spondylosis with radiculopathy - Primary Ms. Alva describes chronic low back pain [...] at that level with contact of the descendingL5 nerve roots. I spoke with Ms. Alva [...] in the future on an as-needed basis. Other Visit Diagnoses Spondylosis without myelopathy or radiculopathy, lumbar region Other intervertebral disc displacement, lumbar region Thank you for allowing us to care for your patient. KELLI Dominguez on 08/09/2024 at 4:53 PM EST CC: Corinna Oquendo MD Asma Kareem, MD [facility] Neurosurgical Corn documented in this encounter Plan of Treatment Not on file documented as of this encounter Visit Diagnoses Diagnosis Lumbosacral spondylosis with radiculopathy- Primary Spondylosis without myelopathy or radiculopathy, lumbar region Other intervertebral disc displacement, lumbar region documented in this encounter Historical Medications * This list may reflect changes made after this encounter. gabapentin (NEURONTIN) 100 mg capsule TAKE 1 CAPSULE BY MOUTH DAILY EVERY NIGHT FOR 1 WEEK THEN 2 CAPSULES EVERY NIGHT 08/05/2024 tiZANidine (ZANAFLEX) 2 mg capsule TAKE 1 CAPSULE BY MOUTH ONCE DAILY FOR MUSCLE SPASMS 08/05/2024 traMADoL (ULTRAM) 50 mg tablet TAKE 1 TABLET BY MOUTH THREE TIMES DAILY FOR PAIN 08/05/2024 added in this encounter Orders Outpatient Referral Count Last Ordered Date Fir st Ordered Date AMB REFERRAL TO NEUROSURGERY 1 08/09/2024 documented in this encounter Care Teams Storeperson Relationship Specialty Start Date End Date Corinna Oquendo MD [address] [place] [address] PCP - General Internal Medicine 07/22/24 documented as of this encounter
== END 2024-08-15 13:59 | disposition home or self-care (01) ==
LOC: HO.US 13:58
PROVIDERS: PCP Internal Medicine; Visit Provider Internal Medicine
DX: Q63.9 Congenital malformation of kidney, unspecified (principal)
CPT/HCPCS: 76775

== ENCOUNTER → 2024-08-15 14:00 | Outpatient (BNV) | payer OTHER, SELFPAY | PROVIDERS: PCP Internal Medicine; Visit Provider Nuclear Medicine | DX: N28.1 Cyst of kidney, acquired (principal); R93.2 Abnormal findings on diagnostic imaging of liver and biliary tract | CPT/HCPCS: 76775 ==

== ENCOUNTER 2024-11-11 11:22 | Outpatient (REF) | payer OTHER, SELFPAY ==
[2024-11-11 13:17] LABS: MANUAL DIFF FLAG NO
[2024-11-11 13:30] LABS: Basophils Absolute Auto 0.1 X10*3/uL (0.0-0.2); Basophils Percent Auto 1.2 % (0-2); Eosinophils Absolute Auto 0.1 X10*3/uL (0.0-0.4); Eosinophils Percent Auto 1.9 % (0-4); Hematocrit 38.6 % (37.0-47.0); Hemoglobin 12.2 g/dl (12.0-16.0); Imm Gran Abs Auto 0.02 X10*3/uL (0.00-0.03); Imm Gran Pct Auto 0.3 % (0.0-0.4); Lymphocytes Absolute Auto 1.6 X10*3/uL (1.2-4.9); Lymphocytes Percent Auto 22.9 % (20-40); Mean Corpuscular HGB Conc 31.6 g/dl (31.0-35.0); Mean Corpuscular Hemoglobin 27.4 pg (27.0-33.0); Mean Corpuscular Volume 86.5 fL (80.0-98.0); Mean Platelet Volume 11.8 fL (9.4-12.3); Monocytes Absolute Auto 0.5 X10*3/uL (0.1-1.2); Monocytes Percent Auto 7.5 % (2-11); Neutrophils Absolute Auto 4.6 x10*3/uL (2.0-8.3); Neutrophils Percent Auto 66.2 % (45-73); Platelet Count 280 X10*3/uL (160-400); Red Blood Count 4.46 X10*6/uL (4.20-5.50); Red Cell Distribution Width 14.4 % (11.0-16.0); White Blood Count 6.9 X10*3/uL (4.8-10.8)
[2024-11-11 14:06] LABS: Creatinine Urine 161.34 mg/dL
[2024-11-11 14:45] LABS: Vitamin B12 578 pg/mL (200-900)
[2024-11-11 14:59] LABS: Anion Gap 10 (12-20)
[2024-11-11 15:07] LABS: Alanine Aminotransferase 14 U/L (0-31); Albumin Level 4.6 g/dL (3.5-5.0); Alkaline Phosphatase 56 U/L (39-117); Aspartate Amino Transferase 23 U/L (5-31); Bilirubin Total 0.4 mg/dL (0.0-1.0); Blood Urea Nitrogen 14 mg/dL (9-16); Calcium 9.9 mg/dL (8.4-10.2); Carbon Dioxide 28 mmol/L (22-29); Chloride 108 mmol/L (96-108); Estimated Glomerular Filt Rate > 60; Glucose Random 100 mg/dL (60-115); Potassium 4.6 mmol/L (3.3-5.1); Sodium 141 mmol/L (135-145); Total Protein 7.6 g/dL (6.5-8.0)
[2024-11-11 15:27] LABS: TSH reflex Free T4 1.15 uIU/mL (0.32-4.0)
[2024-11-12 06:19] LABS: LDL Cholesterol Direct 88 mg/dL (<100)
[2024-11-16 13:18] LABS: Vitamin D 25-OH, D2 <4 ng/mL; Vitamin D 25-OH, D3 31 ng/mL; Vitamin D 25-OH, Total 31 ng/mL (30-100)
== END 2024-11-11 11:23 | disposition home or self-care (01) ==
LOC: HO.HMGCLDS 11:22
PROVIDERS: PCP Internal Medicine; Visit Provider Internal Medicine
DX: R20.2 Paresthesia of skin (principal); M48.061 Spinal stenosis, lumbar region without neurogenic claudication; R52 Pain, unspecified
CPT/HCPCS: 36415; 80053; 82043; 82306; 82570; 82607; 83721; 83735; 84443; 85025

== ENCOUNTER 2024-11-11 11:22 | Outpatient (AMB) | payer OTHER, SELFPAY ==
[2024-11-11 11:23] VITALS: BP 116/68; PULSE 85; TEMP 36.8; O2SAT 98; BMI 26.0
--- NOTE | 2024-11-11 11:23 | A.OFFPC_ITS ---
Vital Signs 11/11/24 11:23 Height 5 ft 7 in Weight 166 lb 4 oz BMI 26.0 BP 116/68 Blood Pressure Location Rt brachial Position Sitting Pulse 85 Pulse Source Pulse Oximeter Temp 98.2 F Pulse Oximetry (%) 98 Oxygen Delivery Method Room Air Intake Visit Reasons: 3m follow up Allergies No Known Allergies Allergy (Verified 08/05/24 13:51) Medication List - Last Reconciled 11/11/24 by Corinna Oquendo MD gabapentin 300 mg PO BEDTIME tizanidine 2 mg PO ONCE 90 days tramadol 50 mg PO TID 30 days Tobacco use date assessed: 08/05/24 Dental Screening Dental Screen Date: 08/05/24 HPI 3m follow up HPI Details Follow-up appointment - The patient is a 44-year-old female pr esenting with chronic back pain and worsening symptoms of spinal stenosis. - The back pain has been severe, with th e patient experiencing increased inflammation and lumbar region pain at present. - She reports a history of paresthesia, or numbness in the legs, which occurs when standing at work, suggesting an exacerbation of spinal stenosis. - The patient mentions past improvement of symptoms, which have now deteriorated once more. - Previously diagnosed with vitamin D de ficiency, the patient admits non- adherence to vitamin D supplementation. - Describes herself as entering the jarod enopausal phase, with noticeable mood changes and irregularities in menstrual cycles. 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 - Currently occupying a more sedentary r ole than previously when involved in patient transfers. Diagnostic Results: - Labs: Vitamin D was low as of last lab work in December of last year. Problem List - Chronic Back Pain - Spinal Stenosis - Paresthesia of Lower Extremities - Vitamin D Deficiency - Premenopausal Symptoms Patient Instructions - Continue taking gabapentin 300 mg at n ight. - Optionally take gabapentin 100 mg in t he morning if needed, at 1 in afternoon but only if drowsiness can be tolerated. - Take prednisone as directed to allevia te nerve pressure. - Consider magnesium glycinate at night for muscle relaxation and improved sle ep. - Follow prescribed Medrol Dosepak instr uctions. - Report any new or worsening symptoms i mmediately. - Keep track of menstrual cycles and any related symptoms; consult FITTING ROOM ASSOCIATE as needed for hormonal changes. - Monitor symptoms and adjust medication usage (gabapentin, tramadol, etc.) according to effectiveness and need. - start vitamin-D supplement Review of Systems - General: No fever no chills - Neurological: No headaches no dizziness - Ear nose throat: No sore throat no hearing difficulty no ear pain - Cardiovascular: No syncope, no chest pain, no palpitations - Gastrointestinal: No nausea vomiting or diarrhea - Endocrine: No polyuria polydipsia no heat intolerance - Genitourinary: No dysuria , no blood in urine Physical Exam General: No acute distress HEENT: No acute findings Neck: Supple Respiratory system: Able to talk in full sentences, no audible wheeze Cardiovascular: S1-S2 regular in rate and rhythm Gastrointestinal: No pain Extremities: Numbness in legs due to spinal stenosis FREEZER WORKER: Alert awake oriented x3 motor sensory intact Skin: Normal turgor [facility] Medical History Pain management Labral tear of hip joint Surgical History History of right hip replacement History of arthroscopy History of section Family History Father Cancer of prostate Mother No problems noted. Brother No problems noted. Son No problems noted. Son No problems noted. Son No problems noted. 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 Cognitive needs: No Hearing needs: No Vision needs: Yes Questionnaire Thrive Questionnaire Date Thrive assessed: 08/05/24 I am a: Patient What is your living situation today?: I have a steady place to live Within the past 12 months, did the food you bought not last and you didn't have the money to get more?: I choose not to answer this question Within the past 12 months, did you worry whether your food would run out before you got money to buy more?: I choose not to answer this question Do you have trouble paying for medicines?: I choose not to answer this question Do you have trouble getting transportation to medical appointments?: No Do you have trouble paying your heating and electricity bill?: No Do you have trouble taking care of your child, family member or friend?: No Do you have trouble with day-to-day activities such as bathing, preparing meals, shopping, managing finances, etc.?: No Are you currently unemployed and looking for a job?: No Are you interested in more education?: No Please select the resources that you would like help with: None Currently or been in a relationship where the following occur: No concerns reported THRIVE Score: 0 ARMANI-7 AMB Questionnaire ARMANI-7 Date ARMANI - 7 assessed: 08/05/24 Source: Developed by Drs. Tobias Moyer, Millie Hernandez, Quinn Gonzalez and colleagues, with an educational radha from [employer]. Physical exam (Primary Care) Vital Signs: Last Vital Signs Temp 98.2 F 11/11/24 11:23 Pulse 85 11/11/24 11:23 BP 116/68 11/11/24 11:23 Pulse Ox 98 11/11/24 11:23 Oxygen Delivery Method Room Air 11/11/24 11:23 BMI result Body Mass Index 26.0 Tobacco/Smoking Status: Tobacco use Status Tobacco use date assessed 08/05/24 11/11/24 11:27 Patient Tobacco Use Status Never used Tobacco 11/11/24 11:27 e-Cigarette/Vaping Use Never Used 11/11/24 11:27 Thrive Assessment: Date of Thrive Assessment Date Thrive assessed 08/05/24 11/11/24 11:27 Currently or been in a relationship where the following occur: No concerns reported Coding Level of Care Code Est Pt Level 4 (55672) Diagnoses Bilateral leg paresthesia R20.2 Spinal stenosis at L4-L5 level M48.061 Pain management R52 Vitamin D deficiency E55.9 Assessment & Plan Assessment & Plan (1) Bilateral leg paresthesia: Code(s): R20.2 - Paresthesia of skin Category: Medical (2) Spinal stenosis at L4-L5 level: Code(s): M48.061 - Spinal stenosis, lumbar region without neurogenic claudication Category: Medical (3) Pain management: Code(s): R52 - Pain, unspecified Category: Medical (4) Vitamin D deficiency: Code(s): E55.9 - Vitamin D deficiency, unspecified Category: Medical Plan Follow-up appointment - The patient is a 44-year-old female presenting with chronic back pain and worsening symptoms of spinal stenosis. - The back pain has been severe, with the patient experiencing increased inflammation and lumbar region pain at present. - She reports a history of paresthesia, or numbness in the legs, which occurs when standing at work, suggesting an exacerbation of spinal stenosis. - The patient mentions past improvement of symptoms, which have now deteriorated once more. - Previously diagnosed with vitamin D deficiency, the patient admits non- adherence to vitamin D supplementation. - Describes herself as entering the premenopausal phase, with noticeable mood changes and irregularities in menstrual cycles. 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 - Currently occupying a more sedentary role than previously when involved in patient transfers. Diagnostic Results: - Labs: Vitamin D was low as of last lab work in December of last year. Problem List - Chronic Back Pain - Spinal Stenosis - Paresthesia of Lower Extremities - Vitamin D Deficiency - Premenopausal Symptoms Patient Instructions - Continue taking gabapentin 300 mg at night. - Optionally take gabapentin 100 mg in the morning if needed, at 1 in afternoon but only if drowsiness can be tolerated. - Take prednisone as directed to alleviate nerve pressure. - Consider magnesium glycinate at night for muscle relaxation and improved sleep. - Follow prescribed Medrol Dosepak instructions. - Report any new or worsening symptoms immediately. - Keep track of menstrual cycles and any related symptoms; consult FITTING ROOM ASSOCIATE as needed for hormonal changes. - Monitor symptoms and adjust medication usage (gabapentin, tramadol, etc.) according to effectiveness and need. - start vitamin-D supplement Orders: Orders Comprehensive Met. Panel Today M48.061 - Spinal stenosis, lumbar region without neurogenic claudication, R20.2 - Paresthesia of skin, R52 - Pain, unspecified Vitamin D 25-OH (D2 and D3) Today M48.061 - Spinal stenosis, lumbar region without neurogenic claudication, R20.2 - Paresthesia of skin, R52 - Pain, unspecified Microalbumin, Random (w Creat) Today M48.061 - Spinal stenosis, lumbar region without neurogenic claudication, R20.2 - Paresthesia of skin, R52 - Pain, unspecified Magnesium Today R20.2 - Paresthesia of skin Complete Blood Count Auto Diff Today M48.061 - Spinal stenosis, lumbar region without neurogenic claudication, R20.2 - Paresthesia of skin, R52 - Pain, unspecified LDL Cholesterol Direct Today M48.061 - Spinal stenosis, lumbar region without neurogenic claudication, R20.2 - Paresthesia of skin, R52 - Pain, unspecified Vitamin B12 Today M48.061 - Spinal stenosis, lumbar region without neurogenic claudication, R20.2 - Paresthesia of skin, R52 - Pain, unspecified TSH reflex Free T4 Today M48.061 - Spinal stenosis, lumbar region without neurogenic claudication, R20.2 - Paresthesia of skin, R52 - Pain, unspecified Medications: New gabapentin 100 mg PO BID 30 days 60 caps 0RF cholecalciferol (vitamin D3) 25 mcg PO DAILY 90 days 90 caps 1RF methylprednisolone (Medrol (Trey)) PO PER PKG DIR 6 days 21 ea 0RF magnesium glycinate 100 mg PO .QHS 90 days 90 caps 3RF Refilled tramadol Further refills will require office visit 50 mg PO TID 30 days 90 tabs 2RF pain
--- OUTSIDE RECORDS SUMMARY | 2024-11-11 12:09 | XMS_ITS | Data Portability ---
Author Organization [place] - [facility], [facility] - INPATIENT Address [address] [place] [address] Care Team Providers Care Production Grip Name Role Phone MASOUDERWINSakina Primary Care Provider Assessment Encounter Date Assessment [...] regarding Potential Benefits of Total Hip Replacement. [email or web address] Not available 10/10/2021 11:33:50 Plan of Treatment [...] Progression of Arthritic Changes 2021 022 [email or web address] [facility] ([facility]), [address], [place], [address], 06/14/202 2 15:26:17 Medication Orders None recorded. Patient TargetsNo targets recorded. Patient InstructionsNo instructions recorded. Reason for Referral None Reported. Results Created Date Observation Date Name Description Value Unit Range Abnormal Flag Note LastModifiedBy Organization Detail LastModifiedTime 10/11/1910/10/2021 XR, hip, unila teral http:/ [email or web address]/opa lweb/I ntegra tionPr ocesso r.aspx ?CMD=O PENSTU DY&ACC ESSION =[id number] [email or web address] [facility] [address] [place], [address], 10/11/2021 08:25:46 01/25/20 22 01/17/2022 MRI, hip, w/o contr ast No observ ation record ed. [email or web address] [facility] ([facility]) [address] [place], [address], 01/29/2022 09:09:39 Result Notes None recorded. Procedures Surgical History Date Name Laterality Status Provider Name and Address Organization Details Recorded Time 06/08/19 21 Other completed Elena Silveira [facility] 10/10/2021 10:58:12 06/08/19 13 Orthopaedic Surgery completed Elena Silveira [facility] 10/10/2021 10:58:02 Imaging Results None recorded. Procedure Notes None recorded. Medical Equipment None [...] Updated DateTime 10/10/2021 170.18 cm 25.4 kg/m2 19293.96 g Elena Silveira [facility] 10/10/2021 10:56:50 Social History Question Answer Notes LastModified by Organizat ion Details LastModified Time Tobacco Smoking Status Never Smoker Elena torres [facility] 10/10/2021 10:56:10 What Is Your Level Of Caffeine Consumption? Moderate [email or web address] Information not available 10/10/2021 How Much Tobacco Do You Smoke? No [email or web address] Information not available 10/10/2021 How Many Years Have You Smoked Tobacco? 0 [email or web address] Information not available 10/10/2021 Sex: Unknown Functional Status Question Answer Note LastModified by Organizat ion Details LastModified Time What is your level of alcohol consumption? Occasional [email or web address] Information not available 10/10/2021 Do you or have you ever used smokeless tobacco? 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 Never used electronic cigarettes [email or web address] Information not available 10/10/2021 What is your exercise level? Occasional [email or web address] Information not available 10/10/2021 Mental Status None recorded. Family History Relationship Description Onset Age of this Age Resolved Age Notes LastModified by Organization Details LastModified Time Father Family history of stroke [email or web address] Not available 10/2021 10:57:33 Mother Myocardial infarction [email or web address] Not available 10:57:54 Medical History Condition Response Osteoarthritis / Rheumatoid arthritis / Other Y Gynecological HistoryNo gynecological history recorded. Obstetrics History GPAL:G 0 P 0 0 0 0 Past Encounters Encounter ID Performer Location Encounter Start Date Encounter Closed Date Diagnosis/Indication Diagnosis SNOMED-CT Code Diagnosis ICD10 Code Diagnosis Note [id number] NUPUR MARTIN MD [facility] Office [address] [place] [id number] 1 10/10/2021 10:28:51 10/10/2021 11:32:15 Pain of hip region 36383184 M25.551 Health Concerns Section Related Observation LastModified by Organization Detai ls LastModified Time None Recorded Concern Status LastModified by Organization Details LastModified Time None Recorded Advance Directives Directive None Recorded Payers Insurance Date Sequence Insurance Name Policy Number Policy Wood Covered Member ID Wood Member ID Guarantor Name 01/29/[address] [place] [address] [place] [place] [id number] [place] Tino Meredithbealex [id number] [place] Dombek 09/09/[address] [place] [address] Hetal Brown [id number] Hetaltaylor Alva 09/09/2021 1 *SELF PAY* Maria Isabel Alva 01/29/2022 1 *SELF PAY* Maria Isabel Alva Notes Date Note Type Note Provider [...] her ability to work as well. Hiwot torres [place] - [facility] 10/15/2021 15:59:13 OBGyn Episode No OBEpisode recorded.
== END 2024-11-11 11:45 | disposition home or self-care (01) ==
LOC: HO.HMCC 11:23
PROVIDERS: PCP Internal Medicine; Visit Provider Internal Medicine
DX: R20.2 Paresthesia of skin (principal); M48.061 Spinal stenosis, lumbar region without neurogenic claudication; R52 Pain, unspecified; E55.9 Vitamin D deficiency, unspecified

== ENCOUNTER 2025-01-02 09:57 | Outpatient (REF) | payer OTHER, SELFPAY ==
--- NOTE | ~2025-01-02 | US_ITS ---
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 No nephrolithiasis. No hydronephrosis. Normal color flow. Parapelvic cyst with a slightly crenulated borders measuring 3.7 x 1.6 x 2.4 cm. This previously measured 2.7 x 1.4 x 1.8 cm. Left kidney normal size and echotexture, 10.9 cm length. No hydronephrosis calculus or mass. Normal color flow. Impression: 1. Kidneys normal-size and position with normal cortical width and echotexture. Parapelvic cyst upper pole right kidney with slightly crenulated borders. This can be better characterize with a contrast-enhanced CT or MRI renal protocol study. This document has been electronically signed by: Sunny Vázquez MD on 01/02/2025 13:01:24
--- OUTSIDE RECORDS SUMMARY | 2025-01-02 10:58 | XMS_ITS | Data Portability ---
Author Organization [place] - [facility] [place], [facility] - INPATIENT Address [address] [place] [address] Care Team Providers Care Metal Weigher Name Role Phone KRISTA MEREDITH Primary Care Provider [phone] Assessment Encounter Date Assessment Date Assessment LastModified [...] regarding Potential Benefits of Total Hip Replacement. [email or web address] Not available 10/10/2021 11:33:50 Plan of Treatment [...] Progression of Arthritic Changes 2021 022 [email or web address] [facility] ([facility]), [address], [place], [address], 15:26:17 Medication Orders None recorded. Patient TargetsNo targets recorded. Patient InstructionsNo instructions recorded. Reason for Referral None Reported. Results Created Date Observation Date Name Description Value Unit Range Abnormal Flag Note LastModifiedBy Organization Detail LastModifiedTime 10/11/19 22 10/10/2021 XR, hip, unila teral http:/ /[email or web address]. 44/opa lweb/I ntegra tionPr ocesso r.aspx ?CMD=O PENSTU DY&ACC ESSION =[id number] [email or web address] [facility] [address] [place] [address], [address], 10/11/2021 08:25:46 01/25/20 22 01/17/2022 MRI, hip, w/o contr ast No observ ation record ed. [email or web address] [facility] ([facility]) [address] [facility], [place], [address], 01/29/2022 09:09:39 Result Notes Documentation Provider Name and Address Organization Details Recorded Time Xr, Hip, Unilateral : [email or web address]/IntegrationProcesso r.[email or web address]?CMD=OPENSTUDY&ACC [id number] KELLI RONQUILLO [address] [place] [address], [id number] [place] [address] [facility] [place] 10/11/2021 08:25:46 Procedures Surgical History Date Name Laterality Status Provider Name and Address Organization Details Recorded Time 06/08/19 21 Other completed Elena Silveira [facility] [place] 10/10/2021 10:58:12 06/08/19 13 Orthopaedic Surgery completed Elena Silveira [facility] [place] 10/10/2021 10:58:02 Imaging Results None recorded. Procedure [...] Updated DateTime 10/10/2021 170.18 cm 25.4 kg/m2 05621.96 g Elena Silveira [facility] [place] 10/10/2021 10:56:50 Social History Question Answer Notes LastModified by [employer] Details LastModified Time Tobacco Smoking Status Never Smoker Elena Silveira [facility], [facility] [place] 10/10/2021 10:56:10 What Is Your Level Of Caffeine Consumption? Moderate Information not available 10/10/2021 How Much Tobacco Do You Smoke? No [email or web address] Information not available 10/10/2021 How Many Years Have You Smoked Tobacco? 0 [email or web address] Information not available 10/10/2021 Sex: Unknown Functional Status Question Answer Note LastModified by Organizat [facility] Details LastModified Time What is your level of alcohol consumption? Occasional [email or web address] Information not available 10/10/2021 Do you or have you ever used smokeless tobacco? 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 Never used electronic cigarettes [email or web address] Information not available 10/10/2021 What is your exercise level? Occasional [email or web address] Information not available 10/10/2021 Mental Status None recorded. Family History Relationship Description Onset Age of this Age Resolved Age Notes LastModified by Organization Details LastModified Time Father Family history of stroke [email or web address] Not available 10/2021 10:57:33 Mother Myocardial infarction [email or web address] Not available 10:57:54 Medical History Condition Response Osteoarthritis / Rheumatoid arthritis / Other Y Gynecological HistoryNo gynecological history recorded. Obstetrics History GPAL:G 0 P 0 0 0 0 Past Encounters Encounter ID Performer Location Encounter Start Date Encounter Closed Date Diagnosis/Indication Diagnosis SNOMED-CT Code Diagnosis ICD10 Code Diagnosis Note [id number] NUPUR MARTIN MD [facility] Office [address] [place] [id number] 1 10/10/2021 10:28:51 10/10/2021 11:32:15 Pain of hip region 20058497 M25.551 Health Concerns Section Related Observation LastModified by Organization Detai ls LastModified Time None Recorded Concern Status LastModified by Organization Details LastModified Time None Recorded Advance Directives Directive None Recorded Payers Insurance Date Sequence Insurance Name Policy Number Policy Wood Covered Member ID Wood Member ID Guarantor Name 01/29/2022 2 [facility] [place] [place] [id number] [place] R Dombek [id number] [place] Dombek 09/09/2021 2 [facility] [place] [id number] [place] Dom[place] 09/09/2021 1 *SELF PAY* Sh iloh Dombek 01/29/2022 1 *SELF PAY* [facility] O[facility] Episode No OBEpisode recorded.
--- OUTSIDE RECORDS SUMMARY | 2025-01-02 10:58 | XMS_ITS | Encounter Summary ---
Author Organization [facility] Address [address] [place] [address] Phone Care Team Providers Care Vision Mixer Name Role Phone Corinna Oquendo MD Primary Care Provider [phone] Encounter Details Date Type Department Care Team (Late st Contact Info) Description 11/29/2019 Ancillary Orders [facility] [address] [place] [address] Param Lucas DO [address] [place] [address] Orthopedics & Sports Medicine, [facility] [place] [address] [email or web address] Social History Tobacco Use Types Packs/Day Years Used Date Smoking Tobacco: Never Smokeless Tobacco: Never Alcohol Use Standard Drinks/Week Comments Yes 0 (1 standard drink = 0.6 oz pur e alcohol) Comments Unknown Sex and Gender Information Value Date Recorded Sex Assigned at Not on file Legal Sex Female 2:05 PM EDT Gender Identity Not on file Sexual Orientation Not on file documented as of this encounter Plan of Treatment Not on file documented as of this encounter Visit Diagnoses Not on filedocumented in this encounter Care Teams Vision Mixer Relationship Specialty Start Date End Date Corinna Oquendo MD [address] [facility] [place] [address] PCP - General Internal Medicine 07/16/17 documented as of this encounter Additional Source Comments The information contained in this document represents components of the legal health record. It is not the complete legal health record.[facility]
--- OUTSIDE RECORDS SUMMARY | 2025-01-02 10:58 | XMS_ITS | Clinical Summary ---
Author Organization [facility] Address [address] [place] [address] Phone Care Team Providers Care Computer Trainer Name Role Phone Corinna Oquendo MD Primary Care Provider [phone] Allergies No known active allergies Medications traMADoL [...] in the future on an as-needed basis. Immunizations Name Administration Dates Next Due Influenza [...] 2002 COVID-19 Vaccine (2023-2 5 season) 2024 Depression Screening 06/08/2024 HIV Screening 07/23/2024 Hepatitis C Screening 07/23/2024 Social Influencers of Health Screening 07/23/2024 Influenza Vaccine (#1) 2025 7, 04/01/2016 DTaP,Tdap,and Td Vaccines (2 - Td or [...] age to complete this topic Meningococcal B Vaccine Aged Out No l onger eligible based on patient's age to complete this topic Pneumococcal Vaccine: Pediatrics (0 to 5 Years) and At-Risk Patients (6 to 49 Years) Aged Out No longer eligible b ased on patient's age to complete this topic RSV Immunization Patients Under 20 months Aged Out No longer eligible b ased on patient's age to complete this topic Varicella Vaccines Aged Out No longer eligible based on patient's age to complete this topic Insurance [employer] Care Teams Computer Trainer Relationship Specialty Start Date End Date Corinna Oquendo MD [address] [place] [phone] PCP - General Internal Medicine 07/22/24
== END 2025-01-02 09:58 | disposition home or self-care (01) ==
LOC: HO.HMGCX 09:57
PROVIDERS: PCP Internal Medicine; Visit Provider Internal Medicine
DX: Q63.9 Congenital malformation of kidney, unspecified (principal)
CPT/HCPCS: 76775

== ENCOUNTER → 2025-01-02 10:00 | Outpatient (BNV) | payer OTHER, SELFPAY | PROVIDERS: PCP Internal Medicine; Visit Provider Radiology Diagnostic Radiology | DX: N28.1 Cyst of kidney, acquired (principal) | CPT/HCPCS: 76775 ==

== ENCOUNTER 2025-02-17 14:52 | Outpatient (AMB) | payer OTHER, SELFPAY ==
--- OUTSIDE RECORDS SUMMARY | 2014-09-30 | XMS_ITS | Encounter Summary ---
Author Organization [facility] Address [address] [facility] [address] [place] [phone] Phone Care Team Providers Care Chief Compliance Officer Name Role Phone Unavailable Primary Care Provider Unavailabl e Reason for Visit * MRI/CAT Scan - Closed Specialty Diagnoses / Procedures Referred By Contac t Referred To Contact Procedures MRI Lower Extremity Outside (No Interpretation) System, Provider Not In, [facility] [address] [address] Referral ID Status Reason Start Date Expiration Date Visits Re quested Visits Authorized [id number] Closed 07/30/2017 07/30/2018 1 1 Encounter Details Date Type Department Care Team (Late st Contact Info) Description 09/30/2014 Hospital Encounter [facility],Outside Imaging [address] [place], [place] [id number] System, Provider Not In, [facility] [address] [address] Social History Tobacco Use Types Packs/Day Years [...] 06/22/2020 7:19 AM Patricia Stafford RN * [place] Suicide Severity Rating Scale (Screener/Recent Self-Report) Question [...] It is not the complete legal health record.[facility]
[2025-02-17 14:54] VITALS: BP 110/78; PULSE 90; RESP 16; O2SAT 97; BMI 26.8
--- NOTE | 2025-02-17 14:54 | MHC.PC.OV ---
Vital Signs 02/17/25 14:54 Height 5 ft 7 in Weight 171 lb BMI 26.8 BP 110/78 Blood Pressure Location Lt brachial Position Sitting Respiration 16 Pulse 90 Pulse Source Pulse Oximeter Pulse Oximetry (%) 97 Oxygen Delivery Method Room Air Intake Visit Reasons: 3 months follow Block Paver Required: No Accompanied by: Self / Same As Patient Allergies No Known Allergies Allergy (Verified 02/17/25 14:56) Medication List - Last Reconciled 02/17/25 by Corinna Oquendo MD cholecalciferol (vitamin D3) 25 mcg PO DAILY 90 days gabapentin 100 mg PO BID 30 days gabapentin 300 mg PO BEDTIME tizanidine 2 mg PO ONCE 90 days tramadol 50 mg PO TID 30 days Tobacco use date assessed: 02/17/25 Dental Screening Dental Screen Date: 02/17/25 Did you have a dental visit in the last 12 months?: Yes Did you have a dental problem in the last 6 months where you did not have access to dental care?: No Was dental information given to patient?: Patient has dentist HPI 3 months follow HPI Details History of Present Illness The patient is a 45 year old female presenting with epigastric pain and medication refill. Epigastric Pain: - The patient describes experiencing a dull epigastric pain, located in the stomach region. - The pain is sometimes accompanied by tenderness upon touch. - She denies any burning sensation typically associated with acid-related issues. - Pain was most notable a few days prior to the visit. - Occasional use of Aleve may have exacerbated the condition. - The patient reports pain relief over time since not touching the area. - Use of Tums suggested for symptomatic relief. Chronic Back Pain: - The patient reports ongoing back pain, particularly discomfort at night. - She has been taking Tramadol 2 to 3 times daily and uses Tizanidine as needed for relief. - Gabapentin is prescribed, but the patient takes it intermittently, inquiring if it causes drowsiness. - Exploring changing the bed mattress to address nighttime discomfort. - The pain has occurred intermittently over a period leading to functional limitations. Medical History: - Chronic back pain - Epigastric pain Medications: - Gabapentin 300 mg at bedtime, 100 mg up to two times daily for nerve-related back pain - Tramadol, two to three times daily for pain management - Tizanidine as needed for muscle spasms - Aleve used occasionally; advised to discontinue due to potential exacerbation of pain Social History: - Moderate functional limitations due to back pain - Considering changes in sleep environment (i.e., changing bed) to alleviate nocturnal discomfort Diagnostic Results: - Renal ultrasound in December: Kidneys of normal size and position with normal cortical width; noted upper polar right kidney cyst Problem List - Epigastric pain - Chronic back pain - Upper polar right kidney cyst Patient Instructions - Discontinue Aleve to avoid exacerbating epigastric pain. - Use Tums as needed for epigastric discomfort. and if needed Prilosec otc - Continue taking Gabapentin as prescribed, possibly adjusting dosage if it causes drowsiness. - Use Tramadol for back pain as needed. - Consider bed replacement for nighttime back discomfort. - Follow up after CT scan as directed. Review of Systems - General: No fever no chills - Neurological: No headaches no dizziness - Ear nose throat: No sore throat no hearing difficulty no ear pain - Cardiovascular: No syncope, no chest pain, no palpitations - Gastrointestinal: No nausea or diarrhea Physical Exam General: No acute distress HEENT: No acute findings Neck: Supple Respiratory system: Able to talk in full sentences, no audible wheeze Cardiovascular: S1-S2 regular in rate and rhythm Gastrointestinal: no pain currently Extremities: No new findings BOILING TUB OPERATOR: Alert awake oriented x3 motor sensory intact Skin: Normal turgor [facility] Medical History Pain management Labral tear of hip joint Surgical History History of right hip replacement History of arthroscopy History of section Family History Father Cancer of prostate Mother No problems noted. Brother No problems noted. Son No problems noted. Son No problems noted. Son No problems noted. 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 1. Little interest or pleasure in doing things: not at all 2. Feeling down, depressed, or hopeless: not at all 3. Trouble falling or staying asleep, or sleeping too much: not at all 4. Feeling tired or having little energy: not at all 5. Poor appetite or overeating: not at all 6. Feeling bad about yourself - or that you are a failure or have let yourself or your family down: not at all 7. Trouble concentrating on things, such as reading the newspaper or watching television: not at all 8. Moving or speaking so slowly that other people could have noticed. Or the opposite - being so fidgety or restless that you have been moving around a lot more than usual: not at all 9. Thoughts that you would be better off or of hurting yourself in some way: not at all Total score: 0 Depression Screening Interpretation: Negative Depression Screening Done: Yes 36265 - PHQ-9 Billing: Yes Source: Developed by Drs. Tobias Moyer, Millie Hernandez, Quinn Gonzalez and colleagues, with an educational radha from [employer]. Thrive Questionnaire Date Thrive assessed: 08/05/24 I am a: Patient What is your living situation today?: I have a steady place to live Within the past 12 months, did the food you bought not last and you didn't have the money to get more?: I choose not to answer this question Within the past 12 months, did you worry whether your food would run out before you got money to buy more?: I choose not to answer this question Do you have trouble paying for medicines?: I choose not to answer this question Do you have trouble getting transportation to medical appointments?: No Do you have trouble paying your heating and electricity bill?: No Do you have trouble taking care of your child, family member or friend?: No Do you have trouble with day-to-day activities such as bathing, preparing meals, shopping, managing finances, etc.?: No Are you currently unemployed and looking for a job?: No Are you interested in more education?: No Please select the resources that you would like help with: None Currently or been in a relationship where the following occur: No concerns reported THRIVE Score: 0 ARMANI-7 AMB Questionnaire ARMANI-7 Date ARMANI - 7 assessed: 02/17/25 Feeling nervous, anxious, or on edge: 0 = Not at all Not being able to stop or control worryin = Not at all Worrying too much about different things: 0 = Not at all Trouble relaxin = Not at all Being so restless that it is hard to sit still: 0 = Not at all Becoming easily annoyed or irritable: 0 = Not at all Feeling afraid as if something awful might happen: 0 = Not at all Total ARMANI-7 score (0-4 normal; 5-9 mild; 10-14 moderate; 15-21 severe): 0 Source: Developed by Drs. Tobias Moyer, Millie Hernandez, Quinn Gonzalez and colleagues, with an educational radha from [employer]. ARMANI-7 Assessment Billing ARMANI-7 Assessment Tool: ARMANI-7 Assessment 80573 Physical exam (Primary Care) Vital Signs: Last Vital Signs Pulse 90 02/17/25 14:54 Resp 16 02/17/25 14:54 BP 110/78 02/17/25 14:54 Pulse Ox 97 02/17/25 14:54 Oxygen Delivery Method Room Air 02/17/25 14:54 BMI result Body Mass Index 26.8 Tobacco/Smoking Status: Tobacco use Status Tobacco use date assessed 02/17/25 02/17/25 14:59 Patient Tobacco Use Status Never used Tobacco 02/17/25 14:59 e-Cigarette/Vaping Use Never Used 02/17/25 14:59 PHQ-9: PHQ-9 Score PHQ-9: Total score 0 02/17/25 15:16 Depression Screening Interpretation: Negative Thrive Assessment: Date of Thrive Assessment Date Thrive assessed 08/05/24 02/17/25 14:59 Currently or been in a relationship where the following occur: No concerns reported Coding Level of Care Code Est Pt Level 4 (51138) Diagnoses Epigastric discomfort R10.13 Bilateral leg paresthesia R20.2 Spinal stenosis at L4-L5 level M48.061 Pain management R52 Additional Codes ARMANI-7 Assessment Billing - ARMANI-7 Assessment Tool: ARMANI-7 Assessment 44602 ([id number]) PHQ-9 - 87270 - PHQ-9 Billing: Yes ([id number]) Assessment & Plan Assessment & Plan (1) Epigastric discomfort: Code(s): R10.13 - Epigastric pain Category: Medical (2) Bilateral leg paresthesia: Code(s): R20.2 - Paresthesia of skin Category: Medical (3) Spinal stenosis at L4-L5 level: Code(s): M48.061 - Spinal stenosis, lumbar region without neurogenic claudication Category: Medical (4) Pain management: Code(s): R52 - Pain, unspecified Category: Medical Plan History of Present Illness The patient is a 45 year old female presenting with epigastric pain and medication refill. Epigastric Pain: - The patient describes experiencing a dull epigastric pain, located in the stomach region. - The pain is sometimes accompanied by tenderness upon touch. - She denies any burning sensation typically associated with acid-related issues. - Pain was most notable a few days prior to the visit. - Occasional use of Aleve may have exacerbated the condition. - The patient reports pain relief over time since not touching the area. - Use of Tums suggested for symptomatic relief. Chronic Back Pain: - The patient reports ongoing back pain, particularly discomfort at night. - She has been taking Tramadol 2 to 3 times daily and uses Tizanidine as needed for relief. - Gabapentin is prescribed, but the patient takes it intermittently, inquiring if it causes drowsiness. - Exploring changing the bed mattress to address nighttime discomfort. - The pain has occurred intermittently over a period leading to functional limitations. Medical History: - Chronic back pain - Epigastric pain Medications: - Gabapentin 300 mg at bedtime, 100 mg up to two times daily for nerve-related back pain - Tramadol, two to three times daily for pain management - Tizanidine as needed for muscle spasms - Aleve used occasionally; advised to discontinue due to potential exacerbation of pain Social History: - Moderate functional limitations due to back pain - Considering changes in sleep environment (i.e., changing bed) to alleviate nocturnal discomfort Diagnostic Results: - Renal ultrasound in December: Kidneys of normal size and position with normal cortical width; noted upper polar right kidney cyst Problem List - Epigastric pain - Chronic back pain - Upper polar right kidney cyst Patient Instructions - Discontinue Aleve to avoid exacerbating epigastric pain. - Use Tums as needed for epigastric discomfort. and if needed Prilosec otc - Continue taking Gabapentin as prescribed, possibly adjusting dosage if it causes drowsiness. - Use Tramadol for back pain as needed. - Consider bed replacement for nighttime back discomfort. - Follow up after CT scan as directed. Medications: Refilled gabapentin 300 mg PO BEDTIME 90 caps 0RF tramadol Further refills will require office visit 50 mg PO TID 90 tabs 1RF pain 30 days magnesium glycinate 100 mg PO .QHS 90 caps 3RF 90 days
--- OUTSIDE RECORDS SUMMARY | 2025-02-17 17:32 | XMS_ITS | Encounter Summary ---
Author Organization [facility] Address [address] [facility] [facility] [address] [place] [address] Phone Care Team Providers Care Lpn Private Duty Name Role Phone Corinna Oquendo MD Primary Care Provider [phone] Encounter Details Date Type Department Care Team ([facility] st Contact Info) Description 04/20/2018 Ancillary Orders [facility] Orthopedics & Sports Medicine [address] [place] [address] Param Lucas DO [address] [place] [address] Orthopedics & Sports Medicine, [facility] [place] [address] [email or web address] Social History Tobacco Use Types Packs/Day Years [...] on filedocumented in this encounter Care Teams Lpn Private Duty Relationship Specialty Start Date End Date Corinna Oquendo MD [address] [facility] [place] [address] PCP - General Internal Medicine 07/16/17 documented as of this encounter Additional Source Comments The information contained in this document represents components of the legal health record. It is not the complete legal health record.[facility]
--- OUTSIDE RECORDS SUMMARY | 2025-02-17 17:32 | XMS_ITS | Encounter Summary ---
Author Organization [facility] Address [address] [place] [address] Phone Care Team Providers Care Can Washer Name Role Phone Corinna Oquendo MD Primary Care Provider [phone] Encounter Details Date Type Department Care Team ([facility] st Contact Info) Description 01/09/2022 Prep for Surgery [facility] Orthopedics & Sports Medicine [address] [place] [address] Parma Lucas DO [address] [place] [address] Orthopedics & Sports Medicine, [facility] [place] [address] [email or web address] Social History Tobacco Use Types Packs/Day Years Used Date Smoking Tobacco: Never Smokeless Tobacco: Never Alcohol Use Standard Drinks/Week Comments Yes 1 (1 standard drink = 0.6 oz pur e alcohol) Comments No Sex and Gender Information Value Date Recorded Sex Assigned at Not on file Legal Sex Female 2:05 PM EDT Gender Identity Not on file Sexual Orientation Not on file documented as of this encounter Plan of Treatment Not on file documented as of this encounter Visit Diagnoses Not on filedocumented in this encounter Care Teams Can Washer Relationship Specialty Start Date End Date Corinna Oqeundo MD [facility] [place] [address] PCP - General Internal Medicine 07/16/17 documented as of this encounter Additional Source Comments The information contained in this document represents components of the legal health record. It is not the complete legal health record.[facility]
--- OUTSIDE RECORDS SUMMARY | 2025-02-17 17:32 | XMS_ITS | Clinical Summary ---
Author Organization [address] [facility] Address [address] [place] [address] Phone Care Team Providers Care Public Relations Intern Name Role Phone Corinna Oquendo MD Primary Care Provider [phone] Allergies No known active allergies Medications traMADoL [...] Cervical Cancer Screening: P ap Smear 2002 Depression Screening 06/08/2024 HIV Screening 07/23/2024 Hepatitis C Screening 07/23/2024 Social Influencers of Health Screening 07/23/2024 COVID-19 Vaccine (1 - 2023-2 5 season) 2025 Influenza Vaccine (#1) 2025 7, 04/01/2016 DTaP,Tdap,and [...] this topic Insurance [employer] Care Teams Public Relations Intern Relationship Specialty Start Date End Date Corinna Oquendo MD [address] [place] [id number] PCP - General Internal Medicine 07/22/24
--- OUTSIDE RECORDS SUMMARY | 2025-02-17 17:32 | XMS_ITS | Encounter Summary ---
Author Organization [facility] Address [address] [place] [address] Phone Care Team Providers Care Supervisor Furnace Process Name Role Phone Corinna Oquendo MD Primary Care Provider [phone] Encounter Details Date Type Department Care Team (Late st Contact Info) Description 11/29/2019 Ancillary Orders [address] [address] Param Lucas DO [address] [place] [address] Orthopedics & Sports Medicine, [place] [address] [email or web address] Hip pain, chronic, right Social History Tobacco Use Types Packs/Day Years [...] as of this encounter Plan of Treatment Pending Results Name Type Priority Associated Diagnoses Date /Time FL Guidance Needle Placement Non-Spine Imaging Routine Hip pain, chronic, right 11/30/2019 8:01 AM EDT Scheduled Orders Name Type Priority Associated Diagnoses Orde r Schedule FL Guidance Needle Placement Non-Spine Imaging Routine Hip pain, chronic, right 1 Occurrences starting 11/29/2019 until 02/29/2020 documented as of this encounter Visit Diagnoses Diagnosis Hip pain, chronic, right documented in this encounter Care Teams Supervisor Furnace Process Relationship Specialty Start Date End Date Corinna Oquendo MD [facility] [place] [address] PCP - General Internal Medicine 07/16/17 documented as of this encounter Additional Source Comments The information contained in this document represents components of the legal health record. It is not the complete legal health record.[facility]
--- OUTSIDE RECORDS SUMMARY | 2025-02-17 17:32 | XMS_ITS | Encounter Summary ---
Author Organization [facility] Address [address] [place] [address] Phone Care Team Providers Care Tool Straightener Name Role Phone Corinna Oquendo MD Primary Care Provider [phone] Reason for Referral * MRI/CAT Scan - Closed Specialty Diagnoses / Procedures Referred By Contac t Referred To Contact Procedures MRI Lower Extremity Outside (No Interpretation) System, Provider [place] In, [place] [address] Referral ID Status Reason Start Date Expiration Date Visits Re quested Visits Authorized [id number] Closed 07/30/2017 07/30/2018 1 1 Encounter Details Date Type Department Care Team (Late st Contact Info) Description 07/30/2017 Ancillary Orders [facility],Outside Imaging [address] [place] [address] System, Provider Not In, [facility] [address] [address] Social History Tobacco Use Types Packs/Day Years [...] on file documented as of this encounter Results * MRI Lower Extremity Outside (No Interpretation) (09/30/2014 12:00 AM EDT) Narrative SYSTEMGENERATED, DOCUMENTATION - 07/30/2017 9:44 AM EST This study is for PACS storage only and not for interpretation. us Provider Not In System PhD IMG OUTSIDE IMAGING W /OUT INTERPRETATION Final Result documented in this encounter Visit Diagnoses Not on filedocumented in this encounter Care Teams Tool Straightener Relationship Specialty Start Date End Date Corinna Oquendo MD [facility] [address] PCP - General Internal Medicine 07/16/17 documented as of this encounter Additional Source Comments The information contained in this document represents components of the legal health record. It is not the complete legal health record.[facility]
--- OUTSIDE RECORDS SUMMARY | 2025-02-17 17:32 | XMS_ITS | Encounter Summary ---
Author Organization [facility] Address [address] [place] [address] Phone Care Team Providers Care Respiratory Therapy Aide Name Role Phone Corinna Oquendo MD Primary Care Provider Encounter Details Date Type Department Care Team (Late st Contact Info) Description 06/22/2020 Procedure Pass OR Admitting Dept - Virtual Department [address] [place] [address] Social History Tobacco Use Types Packs/Day Years [...] 06/22/2020 7:19 AM Patricia Stafford RN * [place] Suicide Severity Rating Scale (Screener/Recent Self-Report) Question Answer Date of Assessment Author 2. Non-Specific Active Suici rena Thoughts (Past 1 Month) No 06/22/2020 7:19 AM Debbie Nolan RN documented as of this encounter Plan of Treatment Not on file documented as of this encounter Visit Diagnoses Not on filedocumented in this encounter Care Teams Respiratory Therapy Aide Relationship Specialty Start Date End Date Corinna Oquendo MD [facility] [place] [address] PCP - General Internal Medicine 07/16/17 documented as of this encounter Additional Source Comments The information contained in this document represents components of the legal health record. It is not the complete legal health record.[facility]
--- OUTSIDE RECORDS SUMMARY | 2025-02-17 17:32 | XMS_ITS | Clinical Summary ---
Author Organization [facility] Address [address] [facility] [address] [place] [address] Phone Care Team Providers Care Motor Coach Tour Operator Name Role Phone Corinna Oquendo MD Primary Care Provider [phone] Allergies No known active allergies Medications diclofenac sodium (VOLTAREN) 75 MG EC tablet Take 1 tablet (75 mg total) by mouth 2 (two) times a day. 60 tablet 2 1 Active Additional Information Patient not taking.Reported on 09/12/2020 acetaminophen (TYLENOL) 500 mg capsule Take by mouth. Acti ve diclofenac sodium (VOLTAREN) 1 % Gel Apply 4 g topically 4 (four) times a day as needed (for pain). [id number] 240 g 2 2 Active traMADoL (ULTRAM) 50 mg tabletIndicatio ns:Degenerative tear of acetabular labrum of right hip Take 1 tablets by mouth every 6-8 hours as needed for pain, maximum 400 mg/day. Patient may request partial fill. 30 tablet 2 Active Active Problems Problem Noted Date Diagnosed Date Bilateral hip pain 05/19/2017 Family History Medical History Relation Comments No Known Problems Brother Gout Father No Known Problems Maternal Aunt No Known Problems Maternal Grandfather No Known Problems Maternal Grandmother No Known Problems Maternal Uncle No Known Problems Mother No Known Problems Paternal Aunt No Known Problems Paternal Grandfather No Known Problems Paternal Grandmother No Known Problems Paternal Uncle No Known Problems Sister Cancer Unspecified Clotting disorder Unspecified Diabetes Unspecified Gout Unspecified Heart disease Unspecified Infl. arthritis Unspecified Collagen disease Neg Hx Depression Neg Hx Dislocations Neg Hx Osteoporosis Neg Hx Scoliosis Neg Hx Relation Status Comments Brother Father Maternal Aunt Maternal Grandfather Maternal Grandmother Maternal Uncle Mother Paternal Aunt Paternal Grandfather Paternal Grandmother Paternal Uncle Sister Unspecified Social History Tobacco Use Types Packs/Day Years [...] on file Sexual Orientation Not on file Last Filed Vital Signs Vital Sign Reading Time Taken Comments Blood Pressure 108/65 06/22/2020 1:15 PM EST Pulse 68 06/22/2020 11:00 AM EST Temperature 36.5 C (97.7 F) 06/22/2020 11:00 AM EST Respiratory Rate 16 06/22/2020 1:15 PM EST Oxygen Saturation 97% 06/22/2020 1:15 PM EST Inhaled Oxygen Concentration - - Weight 74.8 kg (165 lb) 05/08/2021 11:34 AM EST Height 170.2 cm (5' 7 ) 05/08/2021 11:34 AM EST Body Mass Index 25.84 05/08/2021 11:34 AM EST Plan of Treatment Health Maintenance Due Date Last Done Comments DEPRESSION SCREENING 1993 HEPATITIS C SCREENING 1999 HIV ONE-TIME SCREENING (18-6 5 YEARS) 1999 PAP SMEAR 2002 MAMMOGRAM 2021 INFLUENZA VACCINE (#1) 2025 7, 04/01/2016 COVID-19 VACCINE ( - 2023-2 5 season) 2025 Adult Td,Tdap Booster 04/01/2026 04/01/2016 SMOKING STATUS SCREENING (On ce After 26 Yrs) Completed 12/12/2020 HEPATITIS A VACCINES Aged Out No long er eligible based on patient's age to complete this topic HIB VACCINES Aged Out No longer eligi ble based on patient's age to complete this topic MENINGOCOCCAL VACCINES (ACWY) Aged Out No longer eligible based on patient's age to complete this topic MENINGOCOCCAL VACCINES (B) Aged Out N o longer eligible based on patient's age to complete this topic PNEUMOCOCCAL VACCINES (0-49 years) Aged Out No longer eligible b ased on patient's age to complete this topic Medical Devices Not on file Insurance [facility] Member Subscriber Plan / Payer (Ef fective 2015-Present) Name:Hetal Alva Relation to Subscriber:Spouse Name:JEAN ALVA Date of :1978 (Home) Address: [address] [facility] [place] [address] Payer ID:Not on file Type:HMO Address: [place] [id number] [facility] Care Teams Motor Coach Tour Operator Relationship Specialty Start Date End Date Corinna Oquendo MD [facility] [place] [address] PCP - General Internal Medicine 07/16/17 Additional Source Comments The information contained in this document represents components of the legal health record. It is not the complete legal health record.[facility]
--- OUTSIDE RECORDS SUMMARY | 2025-02-17 17:32 | XMS_ITS | Encounter Summary ---
Author Organization [facility] Address [address] [facility] [address] [place] [address] Phone Care Team Providers Care Belt Turner Name Role Phone Corinna Oquendo MD Primary Care Provider [phone] Encounter Details Date Type Department Care Team ([facility] st Contact Info) Description 11/29/2019 Ancillary Orders [facility]ics [facility] Sports Medicine [address] [place] [address] Param Lucas DO [address] [place] [address] Orthopedics & Sports Medicine, [facility] [place] [address] [email or web address] Social History Tobacco Use Types Packs/Day Years [...] on filedocumented in this encounter Care Teams Belt Turner Relationship Specialty Start Date End Date Corinna Oquendo MD [address] [facility] [place] [address] PCP - General Internal Medicine 07/16/17 documented as of this encounter Additional Source Comments The information contained in this document represents components of the legal health record. It is not the complete legal health record.[facility]
--- OUTSIDE RECORDS SUMMARY | 2025-02-17 17:32 | XMS_ITS | Encounter Summary ---
Author Organization [facility] Address [address] [facility] [address] [place] [address] Phone Care Team Providers Care Knife Machine Operator Name Role Phone Referring, Not Required Primary Care Provider Un available Corinna Oquendo MD Primary Care Provider [phone] Encounter Details Date Type Department Care Team (Late st Contact Info) Description 07/03/2017 Procedure Pass [facility], [address] [address] Social History Tobacco Use Types Packs/Day Years [...] on filedocumented in this encounter Care Teams Knife Machine Operator Relationship Specialty Start Date End Date Referring, Not Required PCP - General 05/20/17 07/15/17 Corinna Oquendo MD [facility] [place] [address] PCP - General Internal Medicine 07/16/17 documented as of this encounter Additional Source Comments The information contained in this document represents components of the legal health record. It is not the complete legal health record.[facility]
--- OUTSIDE RECORDS SUMMARY | 2025-02-17 17:32 | XMS_ITS | Encounter Summary ---
Author Organization [facility] Address [address] [place] [address] Phone Care Team Providers Care Law Firm Administrator Name Role Phone Corinna Oquendo MD Primary Care Provider [phone] Encounter Details Date Type Department Care Team (Late st Contact Info) Description 04/20/2020 Procedure Pass [address] [address] Social History Tobacco Use Types Packs/Day Years [...] on filedocumented in this encounter Care Teams Law Firm Administrator Relationship Specialty Start Date End Date Corinna Oquendo MD [facility] [place] [address] PCP - General Internal Medicine 07/16/17 documented as of this encounter Additional Source Comments The information contained in this document represents components of the legal health record. It is not the complete legal health record.[facility]
--- OUTSIDE RECORDS SUMMARY | 2025-02-17 17:32 | XMS_ITS | Encounter Summary ---
Author Organization [facility] Address [address] [place] [address] [place] [address] Phone Care Team Providers Care Directory Compiler Name Role Phone Corinna Oquendo MD Primary Care Provider [phone] Encounter Details Date Type Department Care Team (Late st Contact Info) Description 04/20/2018 Ancillary Orders [address] [address] Param Lucas DO [address] [place] [address] Orthopedics & Sports Medicine, [place] [address] [email or web address] Hip pain, right Social History Tobacco Use Types Packs/Day [...] Needle Placement Non-Spine Imaging Routine Hip pain, right 04/21/2018 7:52 AM EST Scheduled Orders Name Type Priority Associated Diagnoses Orde r Schedule FL Guidance Needle Placement Non-Spine Imaging Routine Hip pain, right Expected: 04/20/2018, Expires: 07/21/2019 documented as of this encounter Visit Diagnoses Diagnosis Hip pain, right Pain in joint, pelvic region and thigh documented in this encounter Care Teams Directory Compiler Relationship Specialty Start Date End Date Corinna Oquendo MD [facility] [place] [address] PCP - General Internal Medicine 07/16/17 documented as of this encounter Additional Source Comments The information contained in this document represents components of the legal health record. It is not the complete legal health record.[facility]
--- OUTSIDE RECORDS SUMMARY | 2025-02-17 17:32 | XMS_ITS | Encounter Summary ---
Author Organization [facility] Address [address] [place] [address] Phone Care Team Providers Care Store Director Name Role Phone Corinna Oquendo MD Primary Care Provider [phone] Encounter Details Date Type Department Care Team (Late st Contact Info) Description 07/30/2017 Procedure Pass [facility],Outside Imaging [address] [place] [address] Social History Tobacco Use Types Packs/Day Years [...] on filedocumented in this encounter Care Teams Store Director Relationship Specialty Start Date End Date Corinna Oquendo MD [facility] [place] [address] PCP - General Internal Medicine 07/16/17 documented as of this encounter Additional Source Comments The information contained in this document represents components of the legal health record. It is not the complete legal health record.[facility]
== END 2025-02-17 16:58 | disposition home or self-care (01) ==
LOC: HO.HMCC 14:53
PROVIDERS: Visit Provider Internal Medicine
DX: R10.13 Epigastric pain (principal); R20.2 Paresthesia of skin; M48.061 Spinal stenosis, lumbar region without neurogenic claudication

== ENCOUNTER → 2025-02-17 14:52 | Outpatient (BNVA) | payer OTHER, SELFPAY | PROVIDERS: Visit Provider Internal Medicine | DX: R10.13 Epigastric pain (principal); R20.2 Paresthesia of skin; M48.061 Spinal stenosis, lumbar region without neurogenic claudication; Z79.891 Long term (current) use of opiate analgesic; Z79.899 Other long term (current) drug therapy; Z13.31 Encounter for screening for depression; Z13.39 Encounter for screening examination for other mental health and behavioral disorders | CPT/HCPCS: 96127 ==

== ENCOUNTER 2025-02-27 09:46 | Outpatient (REF) | payer OTHER, SELFPAY ==
--- OUTSIDE RECORDS SUMMARY | 2014-09-30 | XMS_ITS | Encounter Summary ---
Author Organization [facility] Address [address] [facility] [address] [place] [phone] Phone Care Team Providers Care Time Study Technologist Name Role Phone Unavailable Primary Care Provider Unavailabl e Reason for Visit * MRI/CAT Scan - Closed Specialty Diagnoses / Procedures Referred By Contac t Referred To Contact Procedures MRI Lower Extremity Outside (No Interpretation) System, Provider Not In, [facility] [address] [address] Referral ID Status Reason Start Date Expiration Date Visits Re quested Visits Authorized [id number] Closed 07/30/2017 07/30/2018 1 1 Encounter Details Date Type Department Care Team (Late st Contact Info) Description 09/30/2014 Hospital Encounter [facility],Outside Imaging [address] [place], [place] [id number] System, Provider Not In, [facility] [address] [address] Social History Tobacco Use Types Packs/Day Years [...] 06/22/2020 7:19 AM Patricia Stafford RN * [place] Suicide Severity Rating Scale (Screener/Recent Self-Report) Question [...]
[2025-02-27 11:14] LABS: Blood Urea Nitrogen 13 mg/dL (9-16); Estimated Glomerular Filt Rate > 60
--- OUTSIDE RECORDS SUMMARY | 2025-02-27 11:53 | XMS_ITS | Encounter Summary ---
Author Organization [facility] Address [address] [place] [address] Phone Care Team Providers Care Home [employer]ot Rep Name Role Phone Corinna Oquendo MD Primary Care Provider [phone] Encounter Details Date Type Department Care Team (Late st Contact Info) Description 11/29/2019 Ancillary Orders [address] [address] Param Lucas DO [address] [place] [address] Orthopedics & Sports Medicine, [place] [address] [email or web address] Hip pain, chronic, right Social [...] right documented in this encounter Care Teams [employer] Rep Relationship Specialty Start Date End Date Corinna Oquendo MD [facility] [place] [address] PCP - General Internal Medicine 07/16/17 documented as of this encounter Additional Source Comments The information contained in this document represents components of the legal health record. It is not the complete legal health record.[facility]
--- OUTSIDE RECORDS SUMMARY | 2025-02-27 11:53 | XMS_ITS | Encounter Summary ---
Author Organization [facility] Address [address] [place] [address] Phone Care Team Providers Care Bending Frame Operator Name Role Phone Corinna Oquendo MD Primary Care Provider Encounter Details Date Type Department Care Team (Late st Contact Info) Description 07/30/2017 Procedure Pass [facility],Outside Imaging [address] [place] [address] Social History Tobacco Use Types Packs/Day Years [...] on filedocumented in this encounter Care Teams Bending Frame Operator Relationship Specialty Start Date End Date Corinna Oquendo MD [facility] [place] [address] PCP - General Internal Medicine 07/16/17 documented as of this encounter Additional Source Comments The information contained in this document represents components of the legal health record. It is not the complete legal health record.[facility]
--- OUTSIDE RECORDS SUMMARY | 2025-02-27 11:53 | XMS_ITS | Clinical Summary ---
Author Organization [address] [facility] Address [address] [place] [address] Phone Care Team Providers Care Internal Control Specialist Name Role Phone Corinna Oquendo MD Primary Care Provider [phone] Allergies No known active allergies Medications traMADoL [...] this topic Insurance [employer] Care Teams Internal Control Specialist Relationship Specialty Start Date End Date Corinna Oquendo MD [address] [place] [id number] PCP - General Internal Medicine 07/22/24
--- OUTSIDE RECORDS SUMMARY | 2025-02-27 11:53 | XMS_ITS | Encounter Summary ---
Author Organization [facility] Address [address] [facility] [address] [place] [address] Phone Care Team Providers Care General Road Supervisor Name Role Phone Corinna Oquendo MD Primary Care Provider [phone] Encounter Details Date Type Department Care Team ([facility] st Contact Info) Description 11/29/2019 Ancillary Orders [facility] Orthopedics & Sports Medicine [address] [place] [address] Param Lucas DO [address] [place] [address] Orthopedics & Sports Medicine, [place] [address] [email or web address] Social History Tobacco Use Types Packs/Day Years [...] on filedocumented in this encounter Care Teams General Road Supervisor Relationship Specialty Start Date End Date Corinna Oquendo MD [address] [facility] [place] [address] PCP - General Internal Medicine 07/16/17 documented as of this encounter Additional Source Comments The information contained in this document represents components of the legal health record. It is not the complete legal health record.[facility]
--- OUTSIDE RECORDS SUMMARY | 2025-02-27 11:54 | XMS_ITS | Encounter Summary ---
Author Organization [facility] Address [address] [facility] [address] [place] [address] Phone Care Team Providers Care Jammer Operator Name Role Phone Corinna Oquendo MD Primary Care Provider [phone] Encounter Details Date Type Department Care Team ([facility] st Contact Info) Description 04/20/2018 Ancillary Orders [facility] Orthopedics & Sports Medicine [address] [place] [address] Param Lucas DO [address] [place] [address] Orthopedics & Sports Medicine, [facility] [address] [email or web address] Social History Tobacco Use Types Packs/Day Years [...] on filedocumented in this encounter Care Teams Jammer Operator Relationship Specialty Start Date End Date Corinna Oquendo MD [address] [facility] [place] [address] PCP - General Internal Medicine 07/16/17 documented as of this encounter Additional Source Comments The information contained in this document represents components of the legal health record. It is not the complete legal health record.[facility]
--- OUTSIDE RECORDS SUMMARY | 2025-02-27 11:54 | XMS_ITS | Encounter Summary ---
Author Organization [facility] Address [address] [facility] [address] [place] [address] Phone Care Team Providers Care Textile Clothing And Footwear Mechanic Name Role Phone Referring, Not Required Primary Care Provider Un available Corinna Oquendo MD Primary Care Provider [phone] Encounter Details Date Type Department Care Team (Late st Contact Info) Description 07/03/2017 Procedure Pass [facility], [address] [address] Social History Tobacco Use Types Packs/Day Years [...] on filedocumented in this encounter Care Teams Textile Clothing And Footwear Mechanic Relationship Specialty Start Date End Date Referring, Not Required PCP - General 05/20/17 07/15/17 Corinna Oquendo MD [facility] [place] [address] PCP - General Internal Medicine 07/16/17 documented as of this encounter Additional Source Comments The information contained in this document represents components of the legal health record. It is not the complete legal health record.[facility]
--- OUTSIDE RECORDS SUMMARY | 2025-02-27 11:54 | XMS_ITS | Encounter Summary ---
Author Organization [facility] Address [address] [place] [address] Phone Care Team Providers Care Cage Loader Name Role Phone Corinna Oquendo MD Primary Care Provider [phone] Encounter Details Date Type Department Care Team ([facility] st Contact Info) Description 01/09/2022 Prep for Surgery [facility] Orthopedics & Sports Medicine [address] [place] [address] Param Lucas DO [address] [place] [address] Orthopedics & Sports Medicine, [facility] [place] [address] [email or web address] Social History Tobacco Use Types Packs/Day Years [...] on filedocumented in this encounter Care Teams Cage Loader Relationship Specialty Start Date End Date Corinna Oquendo MD [facility] [place] [address] PCP - General Internal Medicine 07/16/17 documented as of this encounter Additional Source Comments The information contained in this document represents components of the legal health record. It is not the complete legal health record.[facility]
--- OUTSIDE RECORDS SUMMARY | 2025-02-27 11:54 | XMS_ITS | Encounter Summary ---
Author Organization [facility] Address [address] [place] [address] Phone Care Team Providers Care Oracle Database Manager Name Role Phone Corinna Oquendo MD Primary Care Provider [phone] Reason for Referral * MRI/CAT Scan - Closed Specialty Diagnoses / Procedures Referred By Contac t Referred To Contact Procedures MRI Lower Extremity Outside (No Interpretation) System, Provider [place] In, [place] [address] Referral ID Status Reason Start Date Expiration Date Visits Re quested Visits Authorized [id number] Closed 07/30/2017 07/30/2018 1 1 Encounter Details Date Type Department Care Team (Late st Contact Info) Description 07/30/2017 Ancillary Orders [facility],Outside Imaging [address] [place] [address] System, Provider Not In, [facility] [address] [address] Social History Tobacco Use Types Packs/Day Years [...] on filedocumented in this encounter Care Teams Oracle Database Manager Relationship Specialty Start Date End Date Corinna Oquendo MD [facility] [place] [address] PCP - General Internal Medicine 07/16/17 documented as of this encounter Additional Source Comments The information contained in this document represents components of the legal health record. It is not the complete legal health record.[facility]
--- OUTSIDE RECORDS SUMMARY | 2025-02-27 11:54 | XMS_ITS | Encounter Summary ---
Author Organization [facility] Address [address] [place] [address] Phone Care Team Providers Care Risk Prevention Engineer Name Role Phone Corinna Oquendo MD Primary Care Provider [phone] Encounter Details Date Type Department Care Team (Late st Contact Info) Description 04/20/2020 Procedure Pass [address] [address] Social History Tobacco Use Types Packs/Day Years [...] on filedocumented in this encounter Care Teams Risk Prevention Engineer Relationship Specialty Start Date End Date Corinna Oquendo MD [facility] [place] [address] PCP - General Internal Medicine 07/16/17 documented as of this encounter Additional Source Comments The information contained in this document represents components of the legal health record. It is not the complete legal health record.[facility]
--- OUTSIDE RECORDS SUMMARY | 2025-02-27 11:54 | XMS_ITS | Encounter Summary ---
Demographics Address [address] [facility] [place] [address] Home Phone Mobile Phone Email Address Preferred Language Telugu Marital Status Unknown Bahai Affiliation Unknown Race Unknown Ethnic Group Not or Lati no Author Organization [facility] Address [address] [place] [address] Phone Care Team Providers Care Soft Iron Inspector Name Role Phone Corinna Oquendo MD Primary Care Provider [phone] Encounter Details Date Type Department Care Team (Late st Contact Info) Description 06/22/2020 Procedure Pass [place] Admitting Dept - Virtual Department [address] [place] [address] Social History Tobacco Use Types Packs/Day Years [...] 06/22/2020 7:19 AM Patricia Stafford RN * [place] Suicide Severity Rating Scale (Screener/Recent Self-Report) Question Answer Date of Assessment Author 2. Non-Specific Active Suici rena Thoughts (Past 1 Month) No 06/22/2020 7:19 AM Debbie Nolan RN documented as of this encounter Plan of Treatment Not on file documented as of this encounter Visit Diagnoses Not on filedocumented in this encounter Care Teams Soft Iron Inspector Relationship Specialty Start Date End Date Corinna Oqunedo MD [facility] [place] [address] PCP - General Internal Medicine 07/16/17 documented as of this encounter Additional Source Comments The information contained in this document represents components of the legal health record. It is not the complete legal health record.[facility]
--- OUTSIDE RECORDS SUMMARY | 2025-02-27 11:54 | XMS_ITS | Clinical Summary ---
Author Organization [facility] Address [address] [employer] [facility] [address] [place] [address] Phone Care Team Providers Care Manager Food Beverage Name Role Phone Corinna Oquendo MD Primary Care Provider [phone] Allergies No known active allergies Medications diclofenac [...] topic Medical Devices Not on file Insurance [facility] Member Subscriber Plan / Payer (Ef fective 2015-Present) Name:Hetal Alva Relation to Subscriber:Spouse Name:JEAN ALVA Date of :1978 (Home) Address: [address] [facility] [place] [address] Payer ID:Not on file Type:HMO Address: [place] [id number] [facility] Care Teams Manager Food Beverage Relationship Specialty Start Date End Date Corinna Oquendo MD [facility] [place] [address] PCP - General Internal Medicine 07/16/17 Additional Source Comments The information contained in this document represents components of the legal health record. It is not the complete legal health record.[facility]
--- OUTSIDE RECORDS SUMMARY | 2025-02-27 11:54 | XMS_ITS | Encounter Summary ---
Author Organization [facility] Address [address] [place] [address] [place] [address] Phone Care Team Providers Care Office Cashier Name Role Phone Corinna Oquendo MD Primary Care Provider [phone] Encounter Details Date Type Department Care Team (Late st Contact Info) Description 04/20/2018 Ancillary Orders [address] [address] Param Lucas DO [address] [place] [address] Orthopedics & Sports Medicine, [place] [address] [email or web address] Hip pain, right Social History Tobacco Use [...] thigh documented in this encounter Care Teams Office Cashier Relationship Specialty Start Date End Date Corinna Oquendo MD [facility] [place] [address] PCP - General Internal Medicine 07/16/17 documented as of this encounter Additional Source Comments The information contained in this document represents components of the legal health record. It is not the complete legal health record.[facility]
== END 2025-02-27 09:47 | disposition home or self-care (01) ==
LOC: HO.10HDL 09:46
PROVIDERS: Visit Provider Internal Medicine
DX: N28.1 Cyst of kidney, acquired (principal)
CPT/HCPCS: 36415; 82565; 84520

== ENCOUNTER 2025-03-03 08:34 | Outpatient (REF) | payer OTHER, SELFPAY ==
--- OUTSIDE RECORDS SUMMARY | 2014-09-30 | XMS_ITS | Encounter Summary ---
Author Organization [facility] Address [address] [facility] [address] [place] [phone] Phone Care Team Providers Care Continuous Loft Operator Name Role Phone Unavailable Primary Care Provider Unavailabl e Reason for Visit * MRI/CAT Scan - Closed Specialty Diagnoses / Procedures Referred By Contac t Referred To Contact Procedures MRI Lower Extremity Outside (No Interpretation) System, Provider Not In, [facility] [address] [address] Referral ID Status Reason Start Date Expiration Date Visits Re quested Visits Authorized [id number] Closed 07/30/2017 07/30/2018 1 1 Encounter Details Date Type Department Care Team (Late st Contact Info) Description 09/30/2014 Hospital Encounter [facility],Outside Imaging [address], [place] [id number] System, Provider Not In, [facility] [address] [address] Social History Tobacco Use Types Packs/Day Years Used Date Smoking Tobacco: Never Smokeless Tobacco: Never Alcohol Use Standard Drinks/Week Comments Yes 1 (1 standard drink = 0.6 oz pur e alcohol) Education Answer Date Recorded Are you interested in more education? Not on joyce e 10/03/2022 Are you concerned about learning? Not on file 10/03/2022 No 10/03/2022 No 10/03/2022 Digital Access Answer Date Recorded No 11/04/2022 No 11/04/2022 Reliable internet access at home? Not on file 11/04/2022 Device with a working camera? Not on file Comments No Sex and Gender Information Value Date Recorded Sex Assigned at Not on file Legal Sex Female 2:05 PM EDT Gender Identity Not on file Sexual Orientation Not on file documented as of this encounter Functional Status * Calculated C-SSRS Risk Score (Lifetime/Recent) Answer Date of Assessment Author No Risk Indicated 06/22/2020 7:19 AM Patricia Stafford RN * [place] Suicide Severity Rating Scale (Screener/Recent Self-Report) Question Answer Date of Assessment Author 2. Non-Specific Active Suici rena Thoughts (Past 1 Month) No 06/22/2020 7:19 AM Debbie Nolan RN documented as of this encounter Plan of Treatment Not on file documented as of this encounter Procedures Procedure Name Priority Date/Time Associated Diagnosis Comments MRI LOWER EXTREMITY OUTSIDE (NO INTERPRETATION) Routine 09/30/2014 12:00 AM EDT documented in this encounter Results * MRI Lower Extremity Outside (No Interpretation) (09/30/2014 12:00 AM EDT) Narrative SYSTEMGENERATED, DOCUMENTATION - 07/30/2017 9:44 AM EST This study is for PACS storage only and not for interpretation. us Provider Not In System [facility] OUTSIDE [facility] W /OUT INTERPRETATION Final Result documented in this encounter Visit Diagnoses Not on filedocumented in this encounter Additional Source Comments The information contained in this document represents components of the legal health record. It is not the complete legal health record.[facility]
--- NOTE | ~2025-03-03 | CT_ITS ---
EXAMINATION: CT ABDOMEN AND PELVIS WITH CONTRAST CLINICAL INFORMATION: Cyst of kidney, acquired. COMPARISON: No prior CT. Correlation made with ultrasound of the kidneys 12/25/2024, and 08/15/2024. TECHNIQUE: Multidetector volumetric images were obtained from the superior aspect of the liver through the pubic symphysis following administration 85 mL of Omnipaque 350 intravenous contrast. Sagittal and coronal reformatted images were obtained on the technologist's workstation. Oral contrast: No This CT examination was performed using dose optimization techniques as appropriate, variously including the following: *Automated exposure control *Adjustment of mA and/or kV according to patient size (this includes techniques or standardized protocols for targeted exams where dose is matched to indication/reason for exam; i.e. extremities or head) *Use of iterative reconstruction technique FINDINGS: LUNG BASES: Lung bases are clear. There are no effusions. The heart size is normal. The GE junction is normal. LIVER, GALLBLADDER, AND BILIARY TREE: The liver is normal in size, shape, and attenuation. No suspicious focal hepatic lesion or biliary ductal dilatation is present. There is a 9 mm cyst in segment 5, and more superiorly a segment 5, 8 mm cyst. There is a tiny 4 mm cyst in segment 2. There is a 1.5 cm hemangioma in segment 7. The gallbladder is unremarkable with no evidence of radiopaque gallstones, gallbladder wall thickening, or obvious pericholecystic inflammatory changes. PANCREAS: Unremarkable. SPLEEN: Unremarkable. ADRENAL GLANDS: Unremarkable. KIDNEYS AND URETERS: The kidneys are normal in size, shape, and attenuation. No hydronephrosis, hydroureter, or calculi seen. No perinephric stranding. In the upper pole of the right kidney, there is a Bosniak 2 cyst with a dependent 4 mm calcification in a very thin septation measuring 2.0 x 2.3 x 2.5 cm. This demonstrates no suspicious features. BLADDER: Partially obscured by streak artifact from a right hip replacement. Grossly normal. GASTROINTESTINAL TRACT: The stomach is somewhat decompressed. The duodenum, and small bowel appear normal. A normal appendix is visualized. The large bowel is normal in caliber and course, with a few scattered diverticula. No wall thickening or inflammation is evident. There is no rectal abnormality. ABDOMINAL WALL: No significant hernia is appreciated. LYMPH NODES: There is no abnormal lymphadenopathy present. VASCULAR: Unremarkable. PELVIC VISCERA: The uterus and adnexal structures are normal. There is a corpus luteal cyst in the right ovary. OSSEOUS STRUCTURES: There is no suspicious lytic or blastic bone lesion. 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 No complication evident. There are mild degenerative changes in the left hip joint. CT/CT abdomen pelvis w IV con IMPRESSION: 1. No acute findings in the abdomen or pelvis. 2. There is a Bosniak type 2 cyst in the upper pole of the right kidney measuring 2.0 x 2.3 x 2.5 cm. No follow-up recommended. 3. Ancillary findings as described in the body of the report. Electronically signed by: Maxime Smith MD 03/03/2025 09:30 AM EDT
--- OUTSIDE RECORDS SUMMARY | 2025-03-03 08:56 | XMS_ITS | Encounter Summary ---
Author Organization [facility] Address [address] [facility] [address] [place] [address] Phone Care Team Providers Care Parts Room Assistant Name Role Phone Referring, Not Required Primary Care Provider Un available Corinna Oquendo MD Primary Care Provider [phone] Encounter Details Date Type Department Care Team (Late st Contact Info) Description 07/03/2017 Procedure Pass [facility], [address] [address] Social History Tobacco Use Types Packs/Day Years [...] on filedocumented in this encounter Care Teams Parts Room Assistant Relationship Specialty Start Date End Date Referring, Not Required PCP - General 05/20/17 07/15/17 Corinna Oquendo MD [facility] [address] PCP - General Internal Medicine 07/16/17 documented as of this encounter Additional Source Comments The information contained in this document represents components of the legal health record. It is not the complete legal health record.[facility]
--- OUTSIDE RECORDS SUMMARY | 2025-03-03 08:56 | XMS_ITS | Encounter Summary ---
Author Organization [facility] Address [address] [place] [address] Phone Care Team Providers Care Gum Mixer Name Role Phone Corinna Oquendo MD Primary Care Provider [phone] Encounter Details Date Type Department Care Team (Late st Contact Info) Description 04/20/2018 Ancillary Orders [address] [address] Param Lucas DO [address] [place] [address] Orthopedics & Sports Medicine, [place] [address] [email or web address] Hip pain, right Social History Tobacco Use [...] thigh documented in this encounter Care Teams Gum Mixer Relationship Specialty Start Date End Date Corinna Oquendo MD [facility] [place] [address] PCP - General Internal Medicine 07/16/17 documented as of this encounter Additional Source Comments The information contained in this document represents components of the legal health record. It is not the complete legal health record.[facility]
--- OUTSIDE RECORDS SUMMARY | 2025-03-03 08:56 | XMS_ITS | Clinical Summary ---
Author Organization [address] [facility] Address [address] [place] [address] Phone Care Team Providers Care Bulk Mail Clerk Name Role Phone Corinna Oquendo MD Primary Care Provider [phone] Allergies No known active allergies Medications [email or web address] [...] this topic Insurance [employer] Care Teams Bulk Mail Clerk Relationship Specialty Start Date End Date Corinna Oquendo MD [address] [place] [phone] PCP - General Internal Medicine 07/22/24
--- OUTSIDE RECORDS SUMMARY | 2025-03-03 08:56 | XMS_ITS | Encounter Summary ---
Author Organization [facility] Address [address] [facility] [address] [place] [address] Phone Care Team Providers Care Spray Machine Tender Name Role Phone Corinna Oquendo MD Primary Care Provider [phone] Encounter Details Date Type Department Care Team ([facility] st Contact Info) Description 04/20/2018 Ancillary Orders [facility] Orth[facility]ics & Sports Medicine [address] [place] [address] Param Lucas DO [address] [place] [address] Orthopedics & Sports Medicine, [place] [address] [email or web address] Social History Tobacco Use Types Packs/Day Years [...] on filedocumented in this encounter Care Teams Spray Machine Tender Relationship Specialty Start Date End Date Corinna Oquendo MD [address] [facility] [place] [address] PCP - General Internal Medicine 07/16/17 documented as of this encounter Additional Source Comments The information contained in this document represents components of the legal health record. It is not the complete legal health record.[facility]
--- OUTSIDE RECORDS SUMMARY | 2025-03-03 08:56 | XMS_ITS | Encounter Summary ---
Author Organization [facility] Address [address] [place] [address] Phone Care Team Providers Care Harvest Worker Field Crop Name Role Phone Corinna Oquendo MD Primary Care Provider Reason for Referral * MRI/CAT Scan - Closed Specialty Diagnoses / Procedures Referred By Contac t Referred To Contact Procedures MRI Lower Extremity Outside (No Interpretation) System, Provider Not In, [place] [address] Referral ID Status Reason Start Date Expiration Date Visits Re quested Visits Authorized [id number] Closed 07/30/2017 07/30/2018 1 1 Encounter Details Date Type Department Care Team (Late st Contact Info) Description 07/30/2017 Ancillary Orders [facility],Outside Imaging [address] [place] [address] System, Provider Not In, [facility] [address] [address] Social History Tobacco Use Types Packs/Day Years [...] on filedocumented in this encounter Care Teams Harvest Worker Field Crop Relationship Specialty Start Date End Date Corinna Oquendo MD [facility] [place] [address] PCP - General Internal Medicine 07/16/17 documented as of this encounter Additional Source Comments The information contained in this document represents components of the legal health record. It is not the complete legal health record.[facility]
--- OUTSIDE RECORDS SUMMARY | 2025-03-03 08:56 | XMS_ITS | Clinical Summary ---
Author Organization [facility] Address [address] [employer] [facility] [address] [place] [address] Phone Care Team Providers Care Senior Vice President Name Role Phone Corinna Oquendo MD Primary Care Provider [phone] Allergies No known active allergies Medications diclofenac [...] topic Medical Devices Not on file [facility] Member Subscriber Plan / Payer (Ef fective 2015-Present) Name:Hetal Alva Relation to Subscriber:Spouse Name:JEAN ALVA Date of :1978 (Home) Address: [address] [facility] [place] [address] Payer ID:Not on file Type:HMO Address: [place] [id number] [facility] Care Teams Senior Vice President Relationship Specialty Start Date End Date Corinna Oquendo MD [facility] [place] [address] PCP - General Internal Medicine 07/16/17 Additional Source Comments The information contained in this document represents components of the legal health record. It is not the complete legal health record.[facility]
--- OUTSIDE RECORDS SUMMARY | 2025-03-03 08:56 | XMS_ITS | Encounter Summary ---
Author Organization [facility] Address [address] [facility] [address] [place] [address] Phone Care Team Providers Care Belt Lacer Name Role Phone Corinna Oquendo MD Primary Care Provider [phone] Encounter Details Date Type Department Care Team ([facility] st Contact Info) Description 11/29/2019 Ancillary Orders [facility] Orthopedics & Sports Medicine [address] [place] [address] Param Lucas DO [address] [place] [address] Orthopedics & Sports Medicine, [facility] [place] [address] [email or web address] Social History Tobacco Use Types Packs/Day Years [...] filedocumented in this encounter Care Teams Belt Lacer Relationship Specialty Start Date End Date Corinna Oquendo MD [address] [facility] [address] PCP - General Internal Medicine 07/16/17 documented as of this encounter Additional Source Comments The information contained in this document represents components of the legal health record. It is not the complete legal health record.[facility]
--- OUTSIDE RECORDS SUMMARY | 2025-03-03 08:56 | XMS_ITS | Encounter Summary ---
Author Organization [facility] Address [address] [place] [address] Phone Care Team Providers Care Medical Social Consultant Name Role Phone Corinna Oquendo MD Primary Care Provider [phone] Encounter Details Date Type Department Care Team (Late st Contact Info) Description 07/30/2017 Procedure Pass [facility],Outside Imaging [address] [place] [address] Social History Tobacco Use Types Packs/Day Years [...] on filedocumented in this encounter Care Teams Medical Social Consultant Relationship Specialty Start Date End Date Corinna Oquendo MD [facility] [place] [address] PCP - General Internal Medicine 07/16/17 documented as of this encounter Additional Source Comments The information contained in this document represents components of the legal health record. It is not the complete legal health record.[facility]
--- OUTSIDE RECORDS SUMMARY | 2025-03-03 08:56 | XMS_ITS | Encounter Summary ---
Author Organization [facility] Address [address] [place] [address] Phone Care Team Providers Care Structural Engineer Name Role Phone Corinna Oquendo MD Primary Care Provider [phone] Encounter Details Date Type Department Care Team (Late st Contact Info) Description 11/29/2019 Ancillary Orders [address] [address] Param Lucas DO [address] [place] [address] Orthopedics & Sports [place], [place] [address] [email or web address] Hip pain, chronic, right Social History Tobacco [...] right documented in this encounter Care Teams Structural Engineer Relationship Specialty Start Date End Date Corinna Oquendo MD [facility] [address] PCP - General Internal Medicine 07/16/17 documented as of this encounter Additional Source Comments The information contained in this document represents components of the legal health record. It is not the complete legal health record.[facility]
--- OUTSIDE RECORDS SUMMARY | 2025-03-03 08:56 | XMS_ITS | Encounter Summary ---
Author Organization [facility] Address [address] [place] [address] Phone Care Team Providers Care Stripe Matcher Name Role Phone Corinna Oquendo MD Primary Care Provider [phone] Encounter Details Date Type Department Care Team (Late st Contact Info) Description 04/20/2020 Procedure Pass [address] [address] Social History Tobacco Use Types Packs/Day Years [...] on filedocumented in this encounter Care Teams Stripe Matcher Relationship Specialty Start Date End Date Corinna Oquendo MD [facility] [place] [address] PCP - General Internal Medicine 07/16/17 documented as of this encounter Additional Source Comments The information contained in this document represents components of the legal health record. It is not the complete legal health record.[facility]
--- OUTSIDE RECORDS SUMMARY | 2025-03-03 08:56 | XMS_ITS | Encounter Summary ---
Author Organization [facility] Address [address] [place] [address] Phone Care Team Providers Care Dairy Husbandry Worker Name Role Phone Corinna Oquendo MD Primary Care Provider [phone] Encounter Details Date Type Department Care Team (Late st Contact Info) Description 06/22/2020 Procedure Pass [place] Admitting Dept - Virtual Department [address] [place] [address] Social History Tobacco Use Types Packs/Day Years [...] 06/22/2020 7:19 AM Patricia Stafford RN * Gregory Suicide Severity Rating Scale (Screener/Recent Self-Report) Question Answer Date of Assessment Author 2. Non-Specific Active Suici rena Thoughts (Past 1 Month) No 06/22/2020 7:19 AM Debbie Nolan RN documented as of this encounter Plan of Treatment Not on file documented as of this encounter Visit Diagnoses Not on filedocumented in this encounter Care Teams Dairy Husbandry Worker Relationship Specialty Start Date End Date Corinna Oquendo MD [facility] [place] [address] PCP - General Internal Medicine 07/16/17 documented as of this encounter Additional Source Comments The information contained in this document represents components of the legal health record. It is not the complete legal health record.[facility]
--- OUTSIDE RECORDS SUMMARY | 2025-03-03 08:56 | XMS_ITS | Encounter Summary ---
Author Organization [facility] Address [address] [place] [address] Phone Care Team Providers Care Film Processing Supervisor Name Role Phone Corinna Oquendo MD Primary Care Provider [phone] Encounter Details Date Type Department Care Team ([facility] st Contact Info) Description 01/09/2022 Prep for Surgery [facility] Orthopedics & Sports Medicine [address] [place] [address] Param Lucas DO [address] [place] [address] Orthopedics & Sports Medicine, [facility] [place] [address] [email or web address] Social History Tobacco Use Types Packs/Day Years [...] on filedocumented in this encounter Care Teams Film Processing Supervisor Relationship Specialty Start Date End Date Corinna Oquendo MD [facility] [place] [address] PCP - General Internal Medicine 07/16/17 documented as of this encounter Additional Source Comments The information contained in this document represents components of the legal health record. It is not the complete legal health record.[facility]
[2025-03-03] MEDS: iohexoL 350 MG/ML 100 ML INFUS..BTL IV (09:19)
== END 2025-03-03 08:35 | disposition home or self-care (01) ==
LOC: HO.CT 08:34
PROVIDERS: Visit Provider Internal Medicine
DX: N28.1 Cyst of kidney, acquired (principal)
CPT/HCPCS: 74177; Q9967

== ENCOUNTER → 2025-03-03 08:36 | Outpatient (BNV) | payer OTHER, SELFPAY | PROVIDERS: Visit Provider Radiology Diagnostic Radiology | DX: N28.1 Cyst of kidney, acquired (principal); K76.89 Other specified diseases of liver | CPT/HCPCS: 74177 ==